=== PATIENT | female | born 1965 | race Two or more races ===

== ENCOUNTER 2020-03-12 10:10 | Emergency (ER) | payer OTHER, SELFPAY ==
[2020-03-12 10:26] VITALS: PULSE 72; RESP 16; TEMP 36.7; O2SAT 99; BMI 20.7
--- NOTE | 2020-03-12 10:26 | ED_ITS ---
HPI - URI/Sore Throat General Chief Complaint: General Medical Stated Complaint: HEADACHE Time Seen by Provider: 03/12/20 10:26 Source: patient and lang interpreter Mode of arrival: ambulatory Limitations: no limitations History of Present Illness MD elicited complaint: other (muscle aches, headache, chest tightness COVID exposure) Onset (ago): day(s) (2) Consistency: constant Severity: mild Able to tolerate fluids by mouth: Yes Exacerbating factors: nothing Relieving factors: nothing Context: sick contacts (2 nieces have COVID) Associated symptoms: chills and headache Treatments prior to arrival: none Related Data Allergies Allergy/AdvReac Type Severity Reaction Status Date / Time No Known Allergies Allergy Verified 03/12/20 10:14 Review of Systems Review of Systems: Constitutional : no Fever, positive Chills, positive fatigue, positive Malaise ENT/Mouth : positive sore throat, positive runny nose Eyes: No Discharge Cardiovascular : No Chest Pain, No SOB Respiratory : No Cough, No Sputum Gastrointestinal : No Nausea, No Vomiting, No Diarrhea Genitourinary : No Dysuria, No Urinary Frequency Musculoskeletal : positive Myalgia Skin : No rash Neuro : No Headache [facility] Past Medical History Medical History (Updated 03/12/20 @ 10:41 by Meghan Madrigal DO) Low blood pressure Social History Social History (Updated 03/12/20 @ 10:41 by Meghan Madrigal DO) Alcohol intake: never Smoking Status: Never smoker Physical Exam Vital Signs and I&O and Narrative: Vital Signs and I&O: Vital Signs Temp 98.0 F 03/12/20 10:26 Pulse 72 03/12/20 10:26 Resp 16 03/12/20 10:26 Pulse Ox 99 03/12/20 10:26 Intake & Output 03/11/20 03/12/20 03/12/20 18:59 06:59 18:59 Weight 63.503 kg Body Mass Index 20.7 Appearance: Alert. Oriented X3. No acute distress. Eyes: Pupils equal, round and reactive to light. ENT: Pharynx normal. Neck: Normal inspection. Neck supple. CVS: Normal heart rate and rhythm. Pulses normal. Respiratory: No respiratory distress. Breath sounds normal. Abdomen: Soft and nontender. Skin: Skin warm and dry. Normal skin color. Normal skin turgor. Extremities: No lower extremity edema. No lower extremity edema. Neuro: Oriented X 3. No motor deficit. No sensory deficit. MDM - URI/Sore Throat MDM Narrative Medical decision making narrative: not toxic, no hypoxia, clear lungs here for COVID test did mention chest tightness but refuses EKG and CXR doesn't want to wait, COVID test ordered at this time Discharge Plan Discharge Clinical Impression: Viral infection Patient Disposition: Home, Self-Care Instructions: COVID-19 (Coronavirus Disease 2019) (ED) Additional Instructions: we will call you with results in 2 to 4 days. wear a mask and socially distance, use tylenol for fevers Referrals: Physician,Unknown [Primary Care Provider] - 2 days (follow up with your doctor if you do not feel better in 2 days) Stand Alone Forms: Work/School Release Print Language: Maltese
== END 2020-03-12 11:05 | disposition home or self-care (01) ==
LOC: HO.ED 10:58
PROVIDERS: Emergency Provider Emergency Medicine
DX: B34.9 Viral infection, unspecified (principal); Z20.828 Contact with and (suspected) exposure to other viral communicable diseases; R51.9 Headache, unspecified
CPT/HCPCS: 87635; 99283

== ENCOUNTER → 2020-03-31 11:05 | Outpatient (REF) | payer OTHER, SELFPAY ==
--- NOTE | 2020-03-31 11:09 | CA_ITS ---
Acquisition Time: 2020-03-31 11:20:59 Total Exercise Time: 00:06:40 Test Indications: cp Medications: SEE CHART Protocol: DAVID Max HR: 160 BPM 96% of Pred: 165 BPM Max BP: 142/082 mmHG Max Work Load: 8.0 METS Exercise stress ECHO using Bruice protocol. Pt exercise on treadmill for 6 min 40 sec. METS 8, THR 96 %. Pt tolerated well, reported atypical pinching like pain in the middle of the chest at peak exercise with increased HR that completely resolves in recovery period. EKG with no arrhythmias, no ischemic changes davon on EKG tracing during exercise and in recovery. ECHO images taken at rest and immediately at peak exercise. Definity contracst IV used. Normotensive response to exercise . Test reviewed with Dr. Márquez Exercise stress echocardiogram reviewed. At rest, there is normal LVEF and wall motion. With peak exercise, there is no evidence of any exercise induced wall motion abnormality. There is normal decrease in end-systolic volumes. Overall, this is a normal study. Referred By: Yanelis Morales Overread By: ANNIE MÁRQUEZ
--- NOTE | 2020-03-31 11:10 | CA_ITS ---
Acquisition Time: 2020-03-31 11:20:59 Total Exercise Time: 00:06:40 Test Indications: cp Medications: SEE CHART Protocol: DAVID Max HR: 160 BPM 96% of Pred: 165 BPM Max BP: 142/082 mmHG Max Work Load: 8.0 METS Exercise stress ECHO using David protocol. Pt exercise on treadmill for 6 min 40 sec. METS 8, THR 96 %. Pt tolerated well, reported atypical pinching like pain in the middle of the chest at peak exercise with increased HR that completely resolves in recovery period. EKG with no arrhythmias, no ischemic changes seen on EKG tracing during exercise and in recovery. ECHO images taken at rest and immediately at peak exercise. Definity contrast IV used. Normotensive response to exercise . Test reviewed with Dr. Márquez Exercise stress echocardiogram reviewed. At rest, there is normal LVEF and wall motion. With peak exercise, there is no evidence of any exercise induced wall motion abnormality. There is normal decrease in end-systolic volumes. Overall, this is a normal study. Referred By: Yanelis Morales Overread By: ANNIE IGNACIO
== END ==
LOC: HO.CARD 11:05
PROVIDERS: Visit Provider Internal Medicine Cardiovascular Disease
DX: R07.89 Other chest pain (principal)
CPT/HCPCS: 93017; 93350; Q9957

== ENCOUNTER 2020-04-28 09:23 | Day surgery (SDC) | payer OTHER, SELFPAY ==
[2020-04-22 14:01] VITALS: BMI 17.7
--- NOTE | 2020-04-24 15:51 | HO.ANESPROP2 ---
Documented by User: Yady Rocha 04/24/20 15:53 HPI - Anesthesia Eval Consult details Narrative: 54yo F for Colonoscopy [facility] Past Medical History Medical History Arthritis Back pain Chest pain Hx of constipation Hx of iron deficiency anemia Low blood pressure Migraines Surgical History Surgical History Hx of colonoscopy Hx of tubal ligation Social History Social History Alcohol intake: never Smoking Status: Never smoker Use of substances other than those prescribed or required for medical reasons: No Advance Directives: No Advance Directives Information Provided: No Advance Directives on File: No Meds Allergies Allergy/AdvReac Type Severity Reaction Status Date / Time No Known Allergies Allergy Verified 04/28/20 09:27 Home Medications Medication Instructions Recorded Confirmed Type cholecalciferol (vitamin D3) 1 tab PO DAILY 04/28/20 04/28/20 History cyclobenzaprine 1 tab PO BEDTIME PRN 04/28/20 04/28/20 History Exam Exam Date and Time: April 24, 2020 1551 Height,Weight and Vital Signs: Height 5 ft 9 in Weight 54.431 kg Narrative Narrative: Stress ECHO report 03/2020: Exercise stress ECHO using Bruice protocol. Pt exercise on treadmill for 6 min 40 sec. METS 8, THR 96 %. Pt tolerated well, reported atypical pinching like pain in the middle of the chest at peak exercise with increased HR that completely resolves in recovery period. EKG with no arrhythmias, no ischemic changes davon on EKG tracing during exercise and in recovery. ECHO images taken at rest and immediately at peak exercise. Definity contracst IV used. Normotensive response to exercise . Assessment and Plan Assessment Anesthesia Assessment: Chart Reviewed Documented by User: Jr Trevino MD 04/28/20 09:44 [facility] Past Medical History Medical History Arthritis Back pain Chest pain Hx of constipation Hx of iron deficiency anemia Low blood pressure Migraines Surgical History Surgical History Hx of colonoscopy Hx of tubal ligation Social History Social History Alcohol intake: never Smoking Status: Never smoker Use of substances other than those prescribed or required for medical reasons: No Advance Directives: No Advance Directives Information Provided: No Advance Directives on File: No Meds Allergies Allergy/AdvReac Type Severity Reaction Status Date / Time No Known Allergies Allergy Verified 04/28/20 09:27 Home Medications Medication Instructions Recorded Confirmed Type cholecalciferol (vitamin D3) 1 tab PO DAILY 04/28/20 04/28/20 History cyclobenzaprine 1 tab PO BEDTIME PRN 04/28/20 04/28/20 History Exam Airway Mallampati Class: I TM Dist: >3cm Neck ROM: Full Loose/Missing/Broken Teeth: No Heart: rrr Lungs: nl Other: ao Assessment and Plan Assessment Anesthesia Assessment: Anesthesia Plan Discussed and Chart Reviewed Final Anesthetic Review NPO: Yes ASA Class: II Final Preanesthetic Review: No Changes in Pt Med Stat, Meds/Allgs Chart Reviewed, Consent Obtained/Reviewed and Anes Risks/Benef Reviewed Patient Risk: Low Procedure Risk: Low Anesthetic Plan Anesthetic Plan: MAC: Disposition: Standard PACU
--- NOTE | 2020-04-28 09:15 | MHC.SHP ---
Pre-Procedural Eval Section B Chief Complaint: Other Specified Health Status Details of Present Illness: colon screen, FH of CRC Relevant Family History (Specify if Yes): No Relevant Social History: None Present Medications: see Short Stay Collaborative assessment Medical History: Significant History (Arthritis, Back pain, Chest pain, Hx of constipation, Hx of iron deficiency anemia, Low blood pressure, Migraines) History of Previous Operations: Relevant previous surgery/procedure and date(s) (tubal ligation) Allergies: Allergies Allergy/AdvReac Type Severity Reaction Status Date / Time No Known Allergies Allergy Verified 03/12/20 10:14 Review of Systems Sugical H&P ROS: Negative: Constitution, Cardiovascular, Respiratory, Neurological, Psychiatric, Hem-Onc, Allergic/Immunologic, Gastrointestinal, Genitourinary, Musculoskeletal, Integumentary, Endocrine and Eyes/Ears/Nose/Throat Exam Surgical H&P Exam: Normal: HEENT, Normal: Heart, Normal: Lungs, Normal: Extremities, Normal: Abdomen, Normal: Skin and Normal: Neurological Plan Diagnosis/Plan: Unchanged Patient has been examined and remains a candidate for the planned procedure
--- NOTE | 2020-04-28 09:16 | P.OP_ITS ---
Operative Note Operative Note Date of Service: 04/28/20 Narrative: Operative Information Procedure Description: Colonoscopy COLONOSCOPY Instrument: Olympus variable stiffness pediatric scope 190L Colonoscopy Monitoring: Vital signs and clinical assessment, continuous EKG monitoring, Pulse oximetry, Carbon Dioxide monitoring and blood pressure monitoring were done throughout the procedure. Colon withdrawal time was 10 minutes. Procedure: The patient was placed in the left lateral decubitis position and pre-procedure medications were administered. After a digital rectal examination of the ano-rectum, the video colonoscope was inserted into the rectum and advanced through the colon to the cecum/TI. The colonoscope was slowly withdrawn in a retrograde panoramic fashion and the colon mucosa was carefully examined including a retroflexed view of the rectum. Findings and interventions are described below. Procedure Difficulty: easy Findings: Terminal Ileum-normal Cecum:normal Ascending Colon: normal Transverse Colon -normal Descending Colon:normal Sigmoid Colon: normal Rectum: Retroflexion with small internal hemorrhoids, grade I Anorectum - normal Colon preparation: [place] Bowel Preparation Scale Right colon; 3 Transverse colon: 3 Left colon; 3 (0 = Unprepared colon segment with mucosa not seen due to solid stool that cannot be cleared. 1 = Portion of mucosa of the colon segment seen, but other areas of the colon segment not well seen due to staining, residual stool and/or opaque liquid. 2 = Minor amount of residual staining, small fragments of stool and/or opaque liquid, but mucosa of colon segment seen well. 3 = Entire mucosa of colon segment seen well with no residual staining, small fragments of stool or opaque liquid) Impression and Post Procedure Diagnosis: internal hemorrhoids Plan: High fiber diet leaflet Avoid straining at stool, epsom salts and sitz bath prn, anusol supps or cream prn Repeat Colonoscopy in 5 years due to FH of CRC or earlier if clinically indicated Above findings were reviewed with the patient and relevant handouts were provided if indicated.
--- NOTE | 2020-04-28 09:16 | PM.OP ---
Brief Operative Note Date of Service: 04/28/20 Pre-op diagnosis: colon screen Post-op diagnosis: same Procedure: see op note Surgeon: Aime Gallagher MD Anesthesia: MAC Estimated blood loss (mL): 0 Condition: stable Disposition: PACU
[2020-04-28 09:32] VITALS: BP 129/77; PULSE 97; RESP 16; TEMP 36.6; O2SAT 100
[2020-04-28] MEDS: Lactated Ringers 1,000 ML 100 ML IVCONT (09:39)
[2020-04-28 10:19] VITALS: BP 96/41; PULSE 80; RESP 20; TEMP 36.2; O2SAT 99
[2020-04-28 10:24] VITALS: BP 86/46
[2020-04-28 10:29] VITALS: BP 91/52; PULSE 75; RESP 16; O2SAT 100
[2020-04-28 10:35] VITALS: BP 91/55; PULSE 75; RESP 16; TEMP 36.2; O2SAT 100
== END 2020-04-28 11:25 | disposition home or self-care (01) ==
PROVIDERS: Visit Provider Internal Medicine Gastroenterology
PROC: 0DJD8ZZ Inspection of Lower Intestinal Tract, Via Natural or Artificial Opening Endoscopic (ICD-10-PCS; CPT 45378; principal; 2020-04-28 09:30)
DX: Z12.11 Encounter for screening for malignant neoplasm of colon (principal); K64.0 First degree hemorrhoids; D50.9 Iron deficiency anemia, unspecified; Z79.899 Other long term (current) drug therapy; Z80.0 Family history of malignant neoplasm of digestive organs
CPT/HCPCS: 45378

== ENCOUNTER → 2020-05-12 08:29 | Outpatient (BNVA) | payer OTHER, SELFPAY | PROVIDERS: Visit Provider Physician Assistant | DX: Z76.89 Persons encountering health services in other specified circumstances (principal) ==

== ENCOUNTER 2020-05-13 16:16 | Outpatient (REF) | payer OTHER, SELFPAY | END 2020-05-13 16:17 | disposition home or self-care (01) | LOC: HO.LAB 16:16 | PROVIDERS: Visit Provider Internal Medicine | DX: Z20.828 Contact with and (suspected) exposure to other viral communicable diseases (principal) | CPT/HCPCS: C9803; U0003 ==

== ENCOUNTER 2020-06-22 16:42 | Emergency (ER) | payer OTHER, SELFPAY ==
[2020-06-22 19:46] VITALS: BP 111/54; PULSE 67; RESP 16; TEMP 36.8; O2SAT 98
== END 2020-06-22 22:57 | disposition left against medical advice (07) ==
PROVIDERS: Emergency Provider Emergency Medicine
DX: R10.9 Unspecified abdominal pain (principal)

== ENCOUNTER 2020-06-24 10:27 | Emergency (ER) | payer OTHER, SELFPAY ==
[2020-06-24 10:59] VITALS: BP 112/53; PULSE 68; RESP 18; TEMP 36.9; O2SAT 99; BMI 17.1
--- NOTE | 2020-06-24 11:02 | ED.GENADULT ---
HPI - General Adult General Chief complaint: Abdominal Pain <Charmaine Carmona NP - Last Filed: 06/24/20 11:04> Stated complaint: abd pain <Charmaine Carmona NP - Last Filed: 06/24/20 11:04> Time Seen by Provider: 06/24/20 11:02 <Charmaine Carmona NP - Last Filed: 06/24/20 11:04> Source: patient <LLUVIA Aleman - Last Filed: 06/24/20 16:32> Mode of arrival: ambulatory <LLUVIA Aleman - Last Filed: 06/24/20 16:32> History of Present Illness HPI narrative: 54-year-old female with a past medical history of arthritis, constipation, anemia, migraines, tubal ligation, colonic polyps, presenting to the ED complaining of right-sided abdominal pain radiating to right flank x1 week. States pain is constant associated nausea. Denies having similar symptoms in the past. Denies vomiting, fever, diarrhea/constipation, dysuria/hematuria, vaginal bleeding or discharge <LLUVIA Aleman - Last Filed: 06/24/20 16:32> Onset (ago): day(s) <LLUVIA Aleman - Last Filed: 06/24/20 16:32> Related Data Home medications: Home Medications Medication Instructions Recorded Confirmed cholecalciferol (vitamin D3) 1 tab PO DAILY 04/28/20 04/28/20 cyclobenzaprine 1 tab PO BEDTIME PRN 04/28/20 04/28/20 Previous Rx's Medication Instructions Recorded mineral oil [Fleet Mineral Oil] 118 ml [place] DAILY PRN #135 ml 06/24/20 polyethylene glycol 3350 [Miralax] 17 g PO DAILY PRN #30 ea 06/24/20 <Charmaine Carmona NP - Last Filed: 06/24/20 11:04> Allergies/adverse reactions: Allergies Allergy/AdvReac Type Severity Reaction Status Date / Time No Known Allergies Allergy Verified 04/28/20 09:27 <Charmaine Carmona NP - Last Filed: 06/24/20 11:04> Review of Systems Review of Systems: Constitutional: No Weight loss, No Fever Cardiovascular: No Chest Pain, No SOB, No Dyspnea on Exertion Respiratory: No Cough, No Sputum, No Dyspnea Gastrointestinal: + Nausea, No Vomiting, No Diarrhea, No Constipation, + Abdominal pain Genitourinary: No irregular bleeding, No Dysuria, No Urinary Frequency, No Hematuria, +Flank Pain, No Urinary Flow Changes, No Hesitancy Musculoskeletal: No joint pain, No Myalgias, No Joint Swelling Skin: No Skin Lesions, No rash <LLUVIA Aleman - Last Filed: 06/24/20 16:32> Yes all other systems are reviewed and are negative <LLUVIA Aleman - Last Filed: 06/24/20 16:32> [facility] Past Medical History Attestation statement: The following information was validated with the patient. <LLUVIA Aleman - Last Filed: 06/24/20 16:32> Medical History: Medical History (Updated 06/24/20 @ 16:29 by LLUVIA Aleman) Arthritis Back pain Chest pain Family history of colon cancer Family history of colonic polyps Hx of constipation Hx of iron deficiency anemia Low blood pressure Migraines <Charmaine Carmona NP - Last Filed: 06/24/20 11:04> Surgical History: Surgical History Hx of colonoscopy Hx of tubal ligation <Charmaine Carmona NP - Last Filed: 06/24/20 11:04> Family History Family History: Family History (Updated 05/12/20 @ 11:41 by Kathleen Nolasco PA-C) Brother Colon cancer Sister Colon polyps Breast cancer Sister Breast cancer <Charmaine Carmona NP - Last Filed: 06/24/20 11:04> Social History Social History: Social History Alcohol intake: never Smoking Status: Never smoker Smoked in Last 30 Days: No Use of substances other than those prescribed or required for medical reasons: No Advance Directives: No Advance Directives Information Provided: No <Charmaine Carmona NP - Last Filed: 06/24/20 11:04> Physical Exam Vital Signs: Vital Signs: Last Vital Signs Temp 97.8 F 06/24/20 16:00 Pulse 66 06/24/20 16:00 Resp 18 06/24/20 16:00 BP 113/48 L 06/24/20 16:00 Pulse Ox 96 06/24/20 16:00 Body Mass Index 17.1 <Charmaine Carmona NP - Last Filed: 06/24/20 11:04> Vital Signs: Last Vital Signs Temp 97.8 F 06/24/20 16:00 Pulse 66 06/24/20 16:00 Resp 18 06/24/20 16:00 BP 113/48 L 06/24/20 16:00 Pulse Ox 96 06/24/20 16:00 Body Mass Index 17.1 <LLUVIA Aleman - Last Filed: 06/24/20 16:32> Const: General: cooperative and healthy appearing <LLUVIA Aleman - Last Filed: 06/24/20 16:32> Orientation/consciousness: patient oriented x3 <LLUVIA Aleman - Last Filed: 06/24/20 16:32> Limitations: no limitations <LLUVIA Aleman - Last Filed: 06/24/20 16:32> HENMT: Head: Yes normal to inspection <LLUVIA Aleman - Last Filed: 06/24/20 16:32> Ears: hearing grossly normal bilaterally <LLUVIA Aleman - Last Filed: 06/24/20 16:32> General nose exam: Normal external nose present <LLUVIA Aleman - Last Filed: 06/24/20 16:32> Face and sinus: Yes normal facial exam <LLUVIA Aleman - Last Filed: 06/24/20 16:32> Eyes: General: appearance normal, both eyes and all related structures <LLUVIA Aleman - Last Filed: 06/24/20 16:32> EOM: EOMs intact bilaterally <LLUVIA Aleman - Last Filed: 06/24/20 16:32> Neck: Neck: Yes normal visual inspection and Yes no meningeal signs <LLUVIA Aleman - Last Filed: 06/24/20 16:32> Resp: Effort & Inspection: normal respiratory effort <LLUVIA Aleman - Last Filed: 06/24/20 16:32> Cardio: Rate: regular rate <LLUVIA Aleman - Last Filed: 06/24/20 16:32> GI: Inspection: Yes normal to inspection <LLUVIA Aleman - Last Filed: 06/24/20 16:32> Palpation (GI): Soft to palpation, Tenderness to palpation present (GI) in the epigastrum, in the RLQ and in the RUQ, no guarding and not rigid <LLUVIA Aleman - Last Filed: 06/24/20 16:32> : General: Yes CVA tenderness on the right <Eugenie Manzano PA - Last Filed: 06/24/20 16:32> Skin: Rashes: no rashes <Eugenie Manzano PA - Last Filed: 06/24/20 16:32> Wounds: no wounds <Eugenie Manzano PA - Last Filed: 06/24/20 16:32> Neuro: General: patient oriented x3 and no meningeal signs <LLUVIA Aleman - Last Filed: 06/24/20 16:32> Gait exam (Neuro): Normal gait present <LLUVIA Aleman - Last Filed: 06/24/20 16:32> Extrem: General: Yes normal to inspection <LLUVIA Aleman - Last Filed: 06/24/20 16:32> Course Course Course Narrative: 1100-This is rapid medical exam. 54 yo female with h/o hyst, anemia here with right upper quadrant pain with radiation to the right flank x 1 week. +nausea. No vomiting/diarrhea/urinary symptoms. Will need labs, UA, abdominal US. Deferred additional HPI, ROS, PE to primary provider. <Charmaine Carmona NP - Last Filed: 06/24/20 11:04> - 1626-- CT abdomen pelvis w con IMPRESSION: Moderate to significant constipation without any evidence of obstruction. Suspect pelvic congestion. Unremarkable anteverted uterus. No acute process seen in the right upper quadrant. 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 Fleet enema and MiraLax sent to pharmacy. Patient is to follow-up with GI <LLUVIA Aleman - Last Filed: 06/24/20 16:32> Medical Decision Making [facility] Narrative Medical decision making narrative: 54-year-old female with a past medical history of arthritis, constipation, anemia, migraines, tubal ligation, colonic polyps, presenting to the ED complaining of right-sided abdominal pain radiating to right flank x1 week. On exam VSS, NAD/nontoxic appearing. Physical exam as above. Labs/ultrasound resulted via RME and unremarkable. Will obtain CT to rule out appendicitis or other abnormality. Low concern for ovarian pathology Plan: Labs, UA, ultrasound completed, CT AP, re-evaluate <LLUVIA Aleman - Last Filed: 06/24/20 16:32> Lab Data Result diagrams: : 06/24/20 11:23 06/24/20 11:23 <Charmaine Carmona NP - Last Filed: 06/24/20 11:04> Labs: Lab Results 06/24/20 06/24/20 06/24/20 Range/Units 11:23 11:23 11:23 WBC 4.5 L (4.8-10.8) X10*3/uL RBC 4.52 (4.20-5.50) X10*6/uL Hgb 11.9 L (12.0-16.0) g/dl Hct 37.9 (37-47) % MCV 83.8 (80-98) fL MCH 26.3 L (27.0-33.0) pg MCHC 31.4 (31.0-35.0) g/dl RDW 12.2 (11.0-16.0) % Plt Count 202 (160-400) X10*3/uL MPV 9.5 (9.4-12.3) fL Immature Gran % (Auto) 0.2 (0.0-0.4) % Neut % (Auto) 60.1 (45-73) % Lymph % (Auto) 24.3 (20-40) % Coffee % (Auto) 5.6 (2-11) % Eos % (Auto) 9.1 H (0-4) % Baso % (Auto) 0.7 (0-2) % Lymph # (Auto) 1.1 L (1.2-4.9) X10*3/uL Coffee # (Auto) 0.3 (0.1-1.2) X10*3/uL Eos # (Auto) 0.4 (0.0-0.4) X10*3/uL Baso # (Auto) 0.0 (0.0-0.2) X10*3/uL Abs Immat Gran (auto) 0.01 (0.00-0.03) X10*3/uL Absolute Neuts (auto) 2.7 (2.0-8.3) X10*3/uL Absolute Nucleated RBC 0.000 (0.0-0.012) X10*3/uL Nucleated RBC % (auto) 0.0 (0.0-0.2) /100WBC Hold Blue Top SEE NOTE Sodium 140 (135-145) mmol/L Potassium 4.1 (3.3-5.1) mmol/l Chloride 104 (96-108) mmol/L Carbon Dioxide 29 (22-29) mmol/L Anion Gap 11 L (12-20) BUN 10 (9-16) mg/dL Creatinine 0.82 (0.5-1.4) mg/dL Estim Creat Clear Calc 64.3 Estimated GFR > 60 Random Glucose 99 (60-115) mg/dL Calcium 9.5 (8.4-10.2) mg/dL Total Bilirubin 0.3 (0.0-1.0) mg/dL Direct Bilirubin < 0.2 (0.0-0.5) mg/dL AST 21 (5-31) U/L ALT 21 (0-31) U/L Alkaline Phosphatase 77 (39-117) U/L Total Protein 7.5 (6.5-8.0) g/dL Albumin 4.6 (3.5-5.0) g/dL Lipase 40 (8-78) U/L Urine Color Urine Appearance Urine pH (5.0-8.0) Ur Specific [place] (1.005-1.025) Urine Protein (NEG-TRACE) MG/DL Urine Glucose (UA) (NEG) MG/DL Urine Ketones (NEG) MG/DL Urine Blood (NEG) Urine Nitrite (NEG) Ur Leukocyte Esterase (NEG) 06/24/20 Range/Units 11:23 WBC (4.8-10.8) X10*3/uL RBC (4.20-5.50) X10*6/uL Hgb (12.0-16.0) g/dl Hct (37-47) % MCV (80-98) fL MCH (27.0-33.0) pg MCHC (31.0-35.0) g/dl RDW (11.0-16.0) % Plt Count (160-400) X10*3/uL MPV (9.4-12.3) fL Immature Gran % (Auto) (0.0-0.4) % Neut % (Auto) (45-73) % Lymph % (Auto) (20-40) % Coffee % (Auto) (2-11) % Eos % (Auto) (0-4) % Baso % (Auto) (0-2) % Lymph # (Auto) (1.2-4.9) X10*3/uL Coffee # (Auto) (0.1-1.2) X10*3/uL Eos # (Auto) (0.0-0.4) X10*3/uL Baso # (Auto) (0.0-0.2) X10*3/uL Abs Immat Gran (auto) (0.00-0.03) X10*3/uL Absolute Neuts (auto) (2.0-8.3) X10*3/uL Absolute Nucleated RBC (0.0-0.012) X10*3/uL Nucleated RBC % (auto) (0.0-0.2) /100WBC Hold Blue Top Sodium (135-145) mmol/L Potassium (3.3-5.1) mmol/l Chloride (96-108) mmol/L Carbon Dioxide (22-29) mmol/L Anion Gap (12-20) BUN (9-16) mg/dL Creatinine (0.5-1.4) mg/dL Estim Creat Clear Calc Estimated GFR Random Glucose (60-115) mg/dL Calcium (8.4-10.2) mg/dL Total Bilirubin (0.0-1.0) mg/dL Direct Bilirubin (0.0-0.5) mg/dL AST (5-31) U/L ALT (0-31) U/L Alkaline Phosphatase (39-117) U/L Total Protein (6.5-8.0) g/dL Albumin (3.5-5.0) g/dL Lipase (8-78) U/L Urine Color YELLOW Urine Appearance HAZY Urine pH 5.5 (5.0-8.0) Ur Specific [place] >= 1.030 H (1.005-1.025) Urine Protein NEG (NEG-TRACE) MG/DL Urine Glucose (UA) NEG (NEG) MG/DL Urine Ketones NEG (NEG) MG/DL Urine Blood NEG (NEG) Urine Nitrite NEG (NEG) Ur Leukocyte Esterase NEG (NEG) <Charmaine Carmona, [employer]FFEE ROASTER - Last Filed: 06/24/20 11:04> Lab Results 06/24/20 06/24/20 06/24/20 Range/Units 11:23 11:23 11:23 WBC 4.5 L (4.8-10.8) X10*3/uL RBC 4.52 (4.20-5.50) X10*6/uL Hgb 11.9 L (12.0-16.0) g/dl Hct 37.9 (37-47) % MCV 83.8 (80-98) fL MCH 26.3 L (27.0-33.0) pg MCHC 31.4 (31.0-35.0) g/dl RDW 12.2 (11.0-16.0) % Plt Count 202 (160-400) X10*3/uL MPV 9.5 (9.4-12.3) fL Immature Gran % (Auto) 0.2 (0.0-0.4) % Neut % (Auto) 60.1 (45-73) % Lymph % (Auto) 24.3 (20-40) % Coffee % (Auto) 5.6 (2-11) % Eos % (Auto) 9.1 H (0-4) % Baso % (Auto) 0.7 (0-2) % Lymph # (Auto) 1.1 L (1.2-4.9) X10*3/uL Coffee # (Auto) 0.3 (0.1-1.2) X10*3/uL Eos # (Auto) 0.4 (0.0-0.4) X10*3/uL Baso # (Auto) 0.0 (0.0-0.2) X10*3/uL Abs Immat Gran (auto) 0.01 (0.00-0.03) X10*3/uL Absolute Neuts (auto) 2.7 (2.0-8.3) X10*3/uL Absolute Nucleated RBC 0.000 (0.0-0.012) X10*3/uL Nucleated RBC % (auto) 0.0 (0.0-0.2) /100WBC Hold Blue Top SEE NOTE Sodium 140 (135-145) mmol/L Potassium 4.1 (3.3-5.1) mmol/l Chloride 104 (96-108) mmol/L Carbon Dioxide 29 (22-29) mmol/L Anion Gap 11 L (12-20) BUN 10 (9-16) mg/dL Creatinine 0.82 (0.5-1.4) mg/dL Estim Creat Clear Calc 64.3 Estimated GFR > 60 Random Glucose 99 (60-115) mg/dL Calcium 9.5 (8.4-10.2) mg/dL Total Bilirubin 0.3 (0.0-1.0) mg/dL Direct Bilirubin < 0.2 (0.0-0.5) mg/dL AST 21 (5-31) U/L ALT 21 (0-31) U/L Alkaline Phosphatase 77 (39-117) U/L Total Protein 7.5 (6.5-8.0) g/dL Albumin 4.6 (3.5-5.0) g/dL Lipase 40 (8-78) U/L Urine Color Urine Appearance Urine pH (5.0-8.0) Ur Specific [place] (1.005-1.025) Urine Protein (NEG-TRACE) MG/DL Urine Glucose (UA) (NEG) MG/DL Urine Ketones (NEG) MG/DL Urine Blood (NEG) Urine Nitrite (NEG) Ur Leukocyte Esterase (NEG) 06/24/20 Range/Units 11:23 WBC (4.8-10.8) X10*3/uL RBC (4.20-5.50) X10*6/uL Hgb (12.0-16.0) g/dl Hct (37-47) % MCV (80-98) fL MCH (27.0-33.0) pg MCHC (31.0-35.0) g/dl RDW (11.0-16.0) % Plt Count (160-400) X10*3/uL MPV (9.4-12.3) fL Immature Gran % (Auto) (0.0-0.4) % Neut % (Auto) (45-73) % Lymph % (Auto) (20-40) % Coffee % (Auto) (2-11) % Eos % (Auto) (0-4) % Baso % (Auto) (0-2) % Lymph # (Auto) (1.2-4.9) X10*3/uL Coffee # (Auto) (0.1-1.2) X10*3/uL Eos # (Auto) (0.0-0.4) X10*3/uL Baso # (Auto) (0.0-0.2) X10*3/uL Abs Immat Gran (auto) (0.00-0.03) X10*3/uL Absolute Neuts (auto) (2.0-8.3) X10*3/uL Absolute Nucleated RBC (0.0-0.012) X10*3/uL Nucleated RBC % (auto) (0.0-0.2) /100WBC Hold Blue Top Sodium (135-145) mmol/L Potassium (3.3-5.1) mmol/l Chloride (96-108) mmol/L Carbon Dioxide (22-29) mmol/L Anion Gap (12-20) BUN (9-16) mg/dL Creatinine (0.5-1.4) mg/dL Estim Creat Clear Calc Estimated GFR Random Glucose (60-115) mg/dL Calcium (8.4-10.2) mg/dL Total Bilirubin (0.0-1.0) mg/dL Direct Bilirubin (0.0-0.5) mg/dL AST (5-31) U/L ALT (0-31) U/L Alkaline Phosphatase (39-117) U/L Total Protein (6.5-8.0) g/dL Albumin (3.5-5.0) g/dL Lipase (8-78) U/L Urine Color YELLOW Urine Appearance HAZY Urine pH 5.5 (5.0-8.0) Ur Specific [place] >= 1.030 H (1.005-1.025) Urine Protein NEG (NEG-TRACE) MG/DL Urine Glucose (UA) NEG (NEG) MG/DL Urine Ketones NEG (NEG) MG/DL Urine Blood NEG (NEG) Urine Nitrite NEG (NEG) Ur Leukocyte Esterase NEG (NEG) <LLUVIA Aleman - Last Filed: 06/24/20 16:32> Discharge Plan Discharge Clinical Impression: Pelvic congestion syndrome Constipation Qualifiers: Constipation type: unspecified constipation type Qualified Code(s): K59.00 - Constipation, unspecified <Charmaine Carmona NP - Last Filed: 06/24/20 11:04> Patient Disposition: Home, Self-Care <Charmaine Carmona NP - Last Filed: 06/24/20 11:04> Instructions: Constipation (ED) <Charmaine Carmona NP - Last Filed: 06/24/20 11:04> Additional Instructions: Your blood work was reassuring. Her urine was negative. Her CT scan showed significant constipation, start taking MiraLax which is a laxative. Use enema at home as needed. If you do not have a bowel movement 48 hours return to the ED immediately. CT scan also showed some pelvic congestion, follow-up with her OBGYN. If her symptoms persist or worsen, pain becomes unbearable, you are unable to eat or drink, or you have fever return to the ED Chandler an?lisis de padmaja fue reconfortante. Chandler orina fue negativa. Chandler tomograf?a computarizada mostr? estre?imiento significativo, comience a harvey MiraLax, que es un laxante. Use enema en casa seg?n sea necesario. Si no tiene moises evacuaci?n intestinal 48 horas, regrese al servicio de urgencias de inmediato. La tomograf?a computarizada tambi?n mostr? cierta congesti?n p?lvica, seguimiento con chandler obstetra. Si christopher s?ntomas persisten o empeoran, el dolor se vuelve insoportable, no puede comer ni beber, o tiene fiebre, vuelva al servicio de urgencias. <Charmaine Carmona NP - Last Filed: 06/24/20 11:04> Prescriptions: New polyethylene glycol 3350 [Miralax] 17 gram powder in packet 17 g PO DAILY PRN (Reason: constipation) Qty: 30 RF: 0 mineral oil [Fleet Mineral Oil] Enema 118 ml W[place] DAILY PRN (Reason: constipation) Qty: 135 RF: 0 No Action cyclobenzaprine 10 mg tablet 1 tab PO BEDTIME PRN (Reason: Back Pain) RF: 0 cholecalciferol (vitamin D3) 25 mcg (1,000 unit) tablet 1 tab PO DAILY RF: 0 <Charmaine Carmona NP - Last Filed: 06/24/20 11:04> Referrals: Aime Gallagher MD [Physician] - 1 week Ching Holliday MD [Physician] - 1 week <Charmaine Carmona NP - Last Filed: 06/24/20 11:04> Print Language: Sammarinese <Charmaine Carmona NP - Last Filed: 06/24/20 11:04>
--- NOTE | 2020-06-24 11:05 | US_ITS ---
EXAMINATION: US ABDOMEN LIMITED CLINICAL INFORMATION: Right upper quadrant pain, rule out acute cholecystitis. COMPARISON: None TECHNIQUE: Real-time imaging of the right upper quadrant abdominal viscera. FINDINGS: PANCREAS: Unremarkable. LIVER: Unremarkable. GALLBLADDER: Incompletely distended without significant abnormality. COMMON BILE DUCT: Normal in caliber measuring 0.5 cm in diameter. RIGHT KIDNEY: 10.0 cm. Unremarkable. FREE FLUID: None. US/US abdomen limited IMPRESSION: Unremarkable right upper quadrant ultrasound. No significant gallbladder abnormality.
[2020-06-24 11:30] LABS: MANUAL DIFF FLAG NO
[2020-06-24 11:33] LABS: Basophils Percent Auto 0.7 % (0-2); Eosinophils Absolute Auto 0.4 X10*3/uL (0.0-0.4); Eosinophils Percent Auto 9.1 % (0-4); Hematocrit 37.9 % (37-47); Hemoglobin 11.9 g/dl (12.0-16.0); Imm Gran Abs Auto 0.01 X10*3/uL (0.00-0.03); Imm Gran Pct Auto 0.2 % (0.0-0.4); Lymphocytes Absolute Auto 1.1 X10*3/uL (1.2-4.9); Lymphocytes Percent Auto 24.3 % (20-40); Mean Corpuscular HGB Conc 31.4 g/dl (31.0-35.0); Mean Corpuscular Hemoglobin 26.3 pg (27.0-33.0); Mean Corpuscular Volume 83.8 fL (80-98); Mean Platelet Volume 9.5 fL (9.4-12.3); Monocytes Absolute Auto 0.3 X10*3/uL (0.1-1.2); Monocytes Percent Auto 5.6 % (2-11); Neutrophils Absolute Auto 2.7 X10*3/uL (2.0-8.3); Neutrophils Percent Auto 60.1 % (45-73); Platelet Count 202 X10*3/uL (160-400); Red Blood Count 4.52 X10*6/uL (4.20-5.50); Red Cell Distribution Width 12.2 % (11.0-16.0); White Blood Count 4.5 X10*3/uL (4.8-10.8)
[2020-06-24 11:35] LABS: Glucose Urine UA NEG (NEG); Leukocyte Esterase Urine NEG (NEG); Nitrite Urine NEG (NEG); PH 5.5 (5.0-8.0); Specific Gravity - Urine >= 1.030 (1.005-1.025); Urine Blood NEG (NEG); Urine Ketones NEG (NEG); Urine Protein NEG (NEG-TRACE)
[2020-06-24 11:36] LABS: Appearance Urine HAZY; Color Urine YELLOW
[2020-06-24 11:55] LABS: Alanine Aminotransferase 21 U/L (0-31); Albumin Level 4.6 g/dL (3.5-5.0); Alkaline Phosphatase 77 U/L (39-117); Anion Gap 11 (12-20); Aspartate Amino Transferase 21 U/L (5-31); Bilirubin Direct < 0.2 mg/dL (0.0-0.5); Bilirubin Total 0.3 mg/dL (0.0-1.0); Blood Urea Nitrogen 10 mg/dL (9-16); Calcium 9.5 mg/dL (8.4-10.2); Carbon Dioxide 29 mmol/L (22-29); Chloride 104 mmol/L (96-108); Creatinine Clr Calc Pharmacy 64.3; Estimated Glomerular Filt Rate > 60; Glucose Random 99 mg/dL (60-115); Potassium 4.1 mmol/l (3.3-5.1); Sodium 140 mmol/L (135-145); Total Protein 7.5 g/dL (6.5-8.0)
--- NOTE | 2020-06-24 15:00 | CT_ITS ---
EXAMINATION: CT ABDOMEN AND PELVIS WITH CONTRAST CLINICAL INFORMATION: Right upper quadrant and right lower quadrant pain COMPARISON: None TECHNIQUE: Multidetector volumetric images were obtained from the superior aspect of the liver through the pubic symphysis following administration 85 mL of Omnipaque 350 intravenous contrast. Sagittal and coronal reformatted images were obtained on the technologist's workstation. Oral contrast: No This CT examination was performed using dose optimization techniques as appropriate, variously including the following: *Automated exposure control *Adjustment of mA and/or kV according to patient size (this includes techniques or standardized protocols for targeted exams where dose is matched to indication/reason for exam; i.e. extremities or head) *Use of iterative reconstruction technique DLP: 334 mGy-cm FINDINGS: LUNG BASES: The visualized lung bases are unremarkable. LIVER, GALLBLADDER, AND BILIARY TREE: The liver is normal in enlarged in size, normal shape, and attenuation. No focal hepatic lesion or biliary ductal dilatation is present. No radiopaque gallstones or wall thickening seen. There is mild septations in the gallbladder.. PANCREAS: Unremarkable. SPLEEN: Unremarkable. ADRENAL GLANDS: Unremarkable. KIDNEYS AND URETERS: The kidneys are normal in size, shape, and attenuation. No hydronephrosis, hydroureter, or calculi seen. No perinephric stranding. BLADDER: Unremarkable. GASTROINTESTINAL TRACT: There is a large amount of stool and gas seen throughout the colon without distention. The small bowel loops are normal caliber. Appendix is not seen well. No free air or inflammatory process seen. ABDOMINAL WALL: No significant hernia is appreciated. LYMPH NODES: Normal. VASCULAR: Unremarkable. PELVIC VISCERA: The prominent vessels seen within the pelvis likely pelvis congestion. The uterus is anteverted and appears unremarkable. There is minimal free fluid in the pelvis. OSSEOUS STRUCTURES: Unremarkable. CT/CT abdomen pelvis w con IMPRESSION: Moderate to significant constipation without any evidence of obstruction. Suspect pelvic congestion. Unremarkable anteverted uterus. No acute process seen in the right upper quadrant. Mild hepatomegaly with no focal liver lesions seen.
[2020-06-24] MEDS: 0.9 % Sodium Chloride 1,000 ML 999 ML IVCONT (15:31)
[2020-06-24] MEDS: Ketorolac Tromethamine 15 MG/ML VIAL IVPUSH (15:31)
[2020-06-24 15:33] VITALS: BP 116/54; PULSE 54; RESP 18; TEMP 36.4; O2SAT 100
[2020-06-24 15:40] LABS: Lipase 40 U/L (8-78)
[2020-06-24] MEDS: iohexoL 350 MG/ML 100 ML INFUS..BTL IV (15:55)
[2020-06-24 16:00] VITALS: BP 113/48; PULSE 66; RESP 18; TEMP 36.6; O2SAT 96
--- NOTE | 2020-06-24 16:12 | PC.NURSE ---
pt resting comfortably. skin pwd. denies pain. no vomiting. awaits ct results.
== END 2020-06-24 17:48 | disposition home or self-care (01) ==
PROVIDERS: Nurse Practitioner Family; Physician Assistant; Emergency Provider Emergency Medicine
DX: N94.89 Other specified conditions associated with female genital organs and menstrual cycle (principal); K59.00 Constipation, unspecified
CPT/HCPCS: 36415; 74177; 76705; 80048; 80076; 81003; 83690; 85025; 96361; 96374; 99284; J1885; Q9967

== ENCOUNTER 2020-07-21 08:17 | Outpatient (REF) | payer OTHER, SELFPAY | END 2020-07-21 08:18 | disposition home or self-care (01) | LOC: HO.LAB 08:17 | PROVIDERS: Visit Provider Internal Medicine | DX: Z20.822 Contact with and (suspected) exposure to COVID-19 (principal) | CPT/HCPCS: 36415; C9803; U0003; U0005 ==

== ENCOUNTER 2020-07-29 14:56 | Outpatient (REF) | payer OTHER, SELFPAY ==
[2020-07-30 09:21] LABS: BV Int Neg Control Negative (Negative); BV Int Pos Control Positive (Positive)
[2020-07-30 14:52] LABS: C. trachomatis RNA TMA NOT DETECTED (NOT DETECTED); N. gonorrhoeae RNA TMA NOT DETECTED (NOT DETECTED)
== END 2020-07-29 14:57 | disposition home or self-care (01) ==
LOC: HO.LAB 14:56
PROVIDERS: Visit Provider Obstetrics & Gynecology
DX: Z20.2 Contact with and (suspected) exposure to infections with a predominantly sexual mode of transmission (principal); N76.0 Acute vaginitis; B96.89 Other specified bacterial agents as the cause of diseases classified elsewhere; R10.2 Pelvic and perineal pain
CPT/HCPCS: 36415; 81003; 87480; 87491; 87510; 87591; 87660; 99212

== ENCOUNTER 2020-10-01 14:59 | Outpatient (REF) | payer OTHER, SELFPAY ==
[2020-10-01 15:45] LABS: COVID-19 Test Negative (Negative); IDNOW Serial# 55D5AD1C
== END 2020-10-01 15:00 | disposition home or self-care (01) ==
LOC: HO.LAB 14:59
PROVIDERS: Visit Provider Internal Medicine
DX: Z20.822 Contact with and (suspected) exposure to COVID-19 (principal)
CPT/HCPCS: 36415; 87635; C9803

== ENCOUNTER 2020-10-13 13:40 | Outpatient (REF) | payer OTHER, SELFPAY ==
--- NOTE | ~2020-10-13 | MM_ITS ---
EXAMINATION: MM DIAGNOSTIC DIGITAL BREAST TOMOSYNTHESIS, BILATERAL CLINICAL INFORMATION: Due for yearly. Also short interval six-month follow-up calcifications posterior upper outer right breast. The lifetime risk of breast cancer based on the Tyrer-Cuzick Model is 11%. COMPARISON: Mammography: 01/17/2020, 06/08/2019, 05/05/2018, 08/17/2017 TECHNIQUE: Digital breast tomosynthesis is performed in both the craniocaudal and mediolateral oblique views along with computer-aided detection (CAD). Synthesized 2D images are generated from the tomosynthesis. Additional magnification views right breast are obtained in the CC, ML, and MLO views. FINDINGS: The breasts are heterogeneously dense, which may obscure small masses (ACR BI-RADS breast composition Category c). There is fine fibronodular parenchymal pattern similar to prior studies. There is no significant mass or developing density or architectural abnormality. No abnormal calcifications on the left. Calcifications for follow-up upper outer right breast appear likely vascular. They will be reassessed again at time of annual bilateral mammography in one year. Preliminary results are provided to the patient at time of visit by the technologist. MM/MM tomosynthesis diagnostic RT IMPRESSION: 1. No mammographic evidence of malignancy. 2. Probable vascular calcifications upper outer right breast without significant change. ASSESSMENT: BI-RADS 3: Probably Benign RECOMMENDATION: Diagnostic mammography at time of next annual exam, due in 12 months. This patient's information was entered into a reminder system with a target due date for their next mammogram.
== END 2020-10-13 13:41 | disposition home or self-care (01) ==
LOC: HO.MAMMO 13:40
PROVIDERS: Visit Provider Nurse Practitioner Primary Care
DX: R92.1 Mammographic calcification found on diagnostic imaging of breast (principal)
CPT/HCPCS: 77061; 77065

== ENCOUNTER 2020-10-27 12:42 | Outpatient (REF) | payer OTHER, SELFPAY ==
--- NOTE | ~2020-10-27 | XR_ITS ---
EXAMINATION: XR THORACIC SPINE XR LUMBAR SPINE CLINICAL INFORMATION: Disc degeneration. Left-sided sciatica. COMPARISON: Thoracic spine radiographs dated 12/05/2019. CT abdomen/pelvis dated 06/24/2020. TECHNIQUE: AP and lateral views of the thoracic spine. AP, lateral, and coned-down views of the lumbar spine. FINDINGS: Thoracic spine: Normal vertebral body alignment. The thoracic kyphosis is maintained. No acute fracture or subluxation. No loss of vertebral body height. Mild multilevel loss of intervertebral disc height with small anterior endplate osteophytes, similar when compared to the prior examination. No lytic or blastic osseous lesion. The visualized lungs are clear. Lumbar spine: Normal vertebral body alignment. The lumbar lordosis is maintained. No acute fracture or subluxation. No loss of vertebral body height. Mild loss of intervertebral disc height with small endplate osteophytes redemonstrated at L4-L5. No new lytic or blastic osseous lesion. No abnormal soft tissue calcification. XR/XR thoracic spine 2V IMPRESSION: Thoracic spine: Mild multilevel degenerative disc disease, unchanged. Lumbar spine: Mild degenerative disc disease at L4-L5, unchanged.
--- NOTE | ~2020-10-27 | XR_ITS ---
EXAMINATION: XR THORACIC SPINE XR LUMBAR SPINE CLINICAL INFORMATION: Disc degeneration. Left-sided sciatica. COMPARISON: Thoracic spine radiographs dated 12/05/2019. CT abdomen/pelvis dated 06/24/2020. TECHNIQUE: AP and lateral views of the thoracic spine. AP, lateral, and coned-down views of the lumbar spine. FINDINGS: Thoracic spine: Normal vertebral body alignment. The thoracic kyphosis is maintained. No acute fracture or subluxation. No loss of vertebral body height. Mild multilevel loss of intervertebral disc height with small anterior endplate osteophytes, similar when compared to the prior examination. No lytic or blastic osseous lesion. The visualized lungs are clear. Lumbar spine: Normal vertebral body alignment. The lumbar lordosis is maintained. No acute fracture or subluxation. No loss of vertebral body height. Mild loss of intervertebral disc height with small endplate osteophytes redemonstrated at L4-L5. No new lytic or blastic osseous lesion. No abnormal soft tissue calcification. XR/XR lumbar spine 2-3V IMPRESSION: Thoracic spine: Mild multilevel degenerative disc disease, unchanged. Lumbar spine: Mild degenerative disc disease at L4-L5, unchanged.
== END 2020-10-27 12:43 | disposition home or self-care (01) ==
LOC: HO.XRAY 12:42
PROVIDERS: PCP Nurse Practitioner Primary Care; Visit Provider Nurse Practitioner Primary Care
DX: M51.36 Other intervertebral disc degeneration, lumbar region (principal); M54.41 Lumbago with sciatica, right side; M54.42 Lumbago with sciatica, left side
CPT/HCPCS: 72070; 72100

== ENCOUNTER 2020-11-05 12:49 | Outpatient (REF) | payer OTHER, SELFPAY ==
[2020-11-05 14:54] LABS: Anion Gap 14 (12-20); Blood Urea Nitrogen 17 mg/dL (9-16); Calcium 9.4 mg/dL (8.4-10.2); Carbon Dioxide 24 mmol/L (22-29); Chloride 106 mmol/L (96-108); Cholesterol 220 mg/dL; Estimated Glomerular Filt Rate > 60; Glucose Random 84 mg/dL (60-115); HDL Cholesterol 97 mg/dL; LDL Cholesterol Calculated 107 mg/dl; Magnesium 2.2 mg/dL (1.6-2.6); Potassium 4.9 mmol/L (3.3-5.1); Sodium 139 mmol/L (135-145); Triglycerides 83 mg/dL
[2020-11-05 14:55] LABS: Ferritin 96 ng/mL (10-250); TSH reflex Free T4 0.88 uIU/mL (0.32-4.0)
[2020-11-05 15:08] LABS: Vitamin B12 439 pg/mL (200-900)
[2020-11-05 15:11] LABS: Rheumatoid Factor < 15.0 IU/mL (<15.0)
== END 2020-11-05 12:50 | disposition home or self-care (01) ==
LOC: HO.LAB 12:49
PROVIDERS: PCP Nurse Practitioner Primary Care; Visit Provider Nurse Practitioner Primary Care
DX: R25.2 Cramp and spasm (principal)
CPT/HCPCS: 36415; 80048; 80061; 82607; 82728; 83735; 84443; 86431

== ENCOUNTER 2020-11-15 17:13 | Emergency (ER) | payer OTHER, SELFPAY ==
--- NOTE | 2020-11-15 | ECG_ITS ---
Test Reason : CHEST PAIN Blood Pressure : / mmHG Vent. Rate : 053 BPM Atrial Rate : 053 BPM P-R Int : 182 ms QRS Dur : 080 ms QT Int : 430 ms P-R-T Axes : 045 076 072 degrees QTc Int : 403 ms Sinus bradycardia Otherwise normal ECG When compared with ECG of 15-NOV-2018 11:39, No significant change was found Referred By: Generic ED Physician Electronically Signed By:JAGUAR URBINA MD
[2020-11-15 19:03] VITALS: BP 117/63; PULSE 58; RESP 16; TEMP 36.7; O2SAT 100; BMI 17.7
[2020-11-15 20:44] VITALS: BP 126/59; PULSE 57; RESP 16; O2SAT 100
--- NOTE | 2020-11-15 21:01 | ED_ITS ---
HPI - Chest Pain General Chief Complaint: Chest Pain Stated Complaint: arm pain Time Seen by Provider: 11/15/20 20:58 Source: patient Mode of arrival: ambulatory History of Present Illness HPI narrative: Patient with history of anxiety complaining of pain in the chest for last 2 weeks which increased on deep breaths also noticed some pain in the right arm. Today patient feeling tingling sensation left arm. Patient feels very anxious no shortness of breath no palpitation patient had similar attacks in the past when she has anxiety Related Data Home Medications Medication Instructions Recorded Confirmed cholecalciferol (vitamin D3) 1 tab PO DAILY 04/28/20 04/28/20 cyclobenzaprine 1 tab PO BEDTIME PRN 04/28/20 04/28/20 Previous Rx's Medication Instructions Recorded mineral oil [Fleet Mineral Oil] 118 ml IA DAILY PRN #135 ml 06/24/20 polyethylene glycol 3350 [Miralax] 17 g PO DAILY PRN #30 ea 06/24/20 lorazepam [Ativan] 1 mg PO BEDTIME PRN #10 tab 11/15/20 Allergies Allergy/AdvReac Type Severity Reaction Status Date / Time No Known Allergies Allergy Verified 07/29/20 15:35 Review of Systems Review of Systems: Yes all other systems are reviewed and are negative PMFSH Past Medical History Medical History Arthritis Back pain Chest pain Family history of colon cancer Family history of colonic polyps Hx of constipation Hx of iron deficiency anemia Low blood pressure Migraines Surgical History Hx of colonoscopy Hx of tubal ligation Family History Family History Brother Colon cancer Sister Colon polyps Breast cancer Sister Breast cancer Social History Social History Alcohol intake: never Patient Tobacco Use Status: Never used Tobacco Use of substances other than those prescribed or required for medical reasons: No Advance Directives: No Advance Directives Information Provided: No Patient : No Gender identity: female Physical Exam Vital Signs: Vital Signs: Last Vital Signs Temp 98.0 F 11/15/20 19:03 Pulse 57 11/15/20 20:44 Resp 16 11/15/20 20:44 BP 126/59 L 11/15/20 20:44 Pulse Ox 100 11/15/20 20:44 Body Mass Index 17.7 Appearance: Alert. Oriented X3. No acute distress. anxious Eyes: PERRLA, No Nystagmus ENT: Pharynx normal. Oral Mucosa moist Neck: Normal inspection. Neck supple. CVS: Normal heart rate and rhythm. Pulses normal. Respiratory: No respiratory distress. Equal air entry bilateral, no wheezin g/rales/rhonchi Abdomen: Soft and nontender. Bowel sounds are present, no mass palpable, no CVA tenderness Skin: Skin warm and dry. Normal skin color. Normal skin turgor. Extremities: No lower extremity edema. No calf tenderness Neuro: Oriented X 3. No motor deficit. No sensory deficit.No cerebellar signs , MDM - Chest Pain Lab Data Attestation: I reviewed the patient's lab results. Labs: Lab Results 11/15/20 Range/Units 21:06 Troponin I High Sens < 3.5 (<3.5-17.0) ng/L ECG Data ECG #1: Attestation: I personally reviewed and interpreted this ECG as follows: Interpretation: Sinus bradycardia heart rate 53 beats per minute normal intervals normal axis no acute ST T wave changes no acute ischemic Scores Heart Score History: -0- slightly suspicious ECG: -0- normal Age: -1- >45 - <65 Risk factory: -0- no risk factors known Troponin: -0- < or = normal limit Score: 1 Risk: 1.7% Discharge Plan Discharge Clinical Impression: Atypical chest pain, Anxiety Patient Disposition: Home, Self-Care Instructions: Chest Pain (ED), Anxiety (ED) Additional Instructions: Take medication to relax. Follow-up with your PCP Prescriptions: New lorazepam [Ativan] 1 mg tablet 1 mg PO BEDTIME PRN (Reason: anxiety) Qty: 10 RF: 0 No Action cyclobenzaprine 10 mg tablet 1 tab PO BEDTIME PRN (Reason: Back Pain) RF: 0 cholecalciferol (vitamin D3) 25 mcg (1,000 unit) tablet 1 tab PO DAILY RF: 0 polyethylene glycol 3350 [Miralax] 17 gram powder in packet 17 g PO DAILY PRN (Reason: constipation) Qty: 30 RF: 0 mineral oil [Fleet Mineral Oil] Enema 118 ml IA DAILY PRN (Reason: constipation) Qty: 135 RF: 0 Interventions: ED Discharge Assessment Last Done: 11/15/20 22:23 Discharge Date/Time: 11/15/20 22:23
[2020-11-15 21:43] LABS: Troponin-I High Sensitivity < 3.5 ng/L (<3.5-17.0)
== END 2020-11-15 22:23 | disposition home or self-care (01) ==
PROVIDERS: Emergency Provider Internal Medicine
DX: R07.89 Other chest pain (principal); F41.9 Anxiety disorder, unspecified
CPT/HCPCS: 36415; 84484; 93005; 99283; 99285

== ENCOUNTER 2021-01-20 11:29 | Outpatient (REF) | payer OTHER, SELFPAY | END 2021-01-20 11:30 | disposition home or self-care (01) | LOC: HO.LAB 11:29 | PROVIDERS: Visit Provider Internal Medicine | DX: Z20.822 Contact with and (suspected) exposure to COVID-19 (principal) | CPT/HCPCS: C9803; U0003; U0005 ==

== ENCOUNTER → 2021-03-02 08:49 | Outpatient (BNVA) | payer OTHER, SELFPAY | PROVIDERS: Visit Provider Obstetrics & Gynecology ==

== ENCOUNTER 2021-06-03 11:24 | Outpatient (REF) | payer OTHER, SELFPAY | END 2021-06-03 11:25 | disposition home or self-care (01) | LOC: HO.LAB 11:24 | PROVIDERS: Visit Provider Internal Medicine | DX: Z13.89 Encounter for screening for other disorder (principal) | CPT/HCPCS: 36415; 87635; C9803 ==

== ENCOUNTER 2021-08-14 11:45 | Outpatient (REF) | payer OTHER, SELFPAY ==
--- NOTE | ~2021-08-14 | XR_ITS ---
EXAMINATION: XR CHEST CLINICAL INFORMATION: Anterior chest pain, chondrocostal junctions syndrome, angina. COMPARISON: Chest radiographs 11/15/2018, 08/25/2017 TECHNIQUE: 2 views of the chest were obtained. FINDINGS: There is mild upper zone hyperinflation similar to prior studies. There is no pneumothorax, pleural reaction, airspace consolidation or groundglass opacity. The costophrenic sulci are clear. The heart is normal in size. The vascularity is normal. The hilar and mediastinal contours are unremarkable. There is gentle dextrocurvature lower thoracic spine. No thoracic vertebral compression. No visible bony destructive process. XR/XR chest 2V IMPRESSION: No acute intrathoracic disease.
== END 2021-08-14 11:46 | disposition home or self-care (01) ==
LOC: HO.XRAY 11:45
PROVIDERS: PCP Nurse Practitioner Primary Care; Visit Provider Nurse Practitioner Primary Care
DX: I20.9 Angina pectoris, unspecified (principal); M94.0 Chondrocostal junction syndrome [Tietze]
CPT/HCPCS: 71046

== ENCOUNTER 2021-10-19 12:59 | Outpatient (REF) | payer MEDICAID, SELFPAY ==
--- NOTE | ~2021-10-19 | MM_ITS ---
EXAMINATION: MM DIAGNOSTIC DIGITAL BREAST TOMOSYNTHESIS, BILATERAL US DIAGNOSTIC ULTRASOUND BREAST, LEFT CLINICAL INFORMATION: Due for yearly. Also follow-up probable benign calcifications posterior upper outer right breast. Family history breast cancer, 2 sisters. TC score 11%. COMPARISON: Mammography: 10/13/2020, 01/17/2020 (diagnostic, BI-RADS 3), 06/08/2019, 05/05/2018, 08/17/2017, 07/29/2016 TECHNIQUE: Digital breast tomosynthesis is performed in both the craniocaudal and mediolateral oblique views along with computer-aided detection (CAD). Synthesized 2D images are generated from the tomosynthesis. Additional views are obtained: Right magnification CC, right magnification ML, spot left CC, left rolled CC x2. Ultrasound left breast is targeted to the 11:00 through 7:00 position. Grayscale imaging and color Doppler are performed without and with harmonics. FINDINGS: The breasts are heterogeneously dense, which may obscure small masses (ACR BI-RADS breast composition Category c). Findings fibronodular parenchymal pattern is present. The right breast parenchymal pattern is similar to prior studies. There is no developing density or interval mass or architectural abnormality. Right calcifications for follow-up are stable, likely vascular and now considered benign. The bilateral axilla and skin contours are unremarkable. Left CC view has asymmetric density central outer breast without MLO correlate. Additional views show no definite three-dimensional persistent asymmetry or mass. Ultrasound left breast demonstrates no cystic or solid mass or focal architectural abnormality. 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 Asymmetric density left breast is likely related to summation artifact. As a precaution left breast will be reassessed again in 6 months to exclude a subtle developing density. MM/MM tomosynthesis diagnostic BI IMPRESSION: Left: -Asymmetric density central outer breast on CC view likely summation artifact. Right: -No mammographic evidence of malignancy. -Right calcifications for follow-up now considered to be benign. ASSESSMENT: BI-RADS 3: Probably Benign RECOMMENDATION: Diagnostic left mammography in 6 months. This patient's information was entered into a reminder system with a target due date for their next mammogram.
== END 2021-10-19 13:00 | disposition home or self-care (01) ==
LOC: HO.MAMMO 12:59
PROVIDERS: PCP Nurse Practitioner Primary Care; Visit Provider Nurse Practitioner Primary Care
DX: R92.1 Mammographic calcification found on diagnostic imaging of breast (principal); N64.89 Other specified disorders of breast; Z80.3 Family history of malignant neoplasm of breast
CPT/HCPCS: 76642; 77062; 77066

== ENCOUNTER 2021-11-17 12:10 | Outpatient (REF) | payer MEDICAID, SELFPAY ==
[2021-11-17 13:12] LABS: COVID-19 Test Negative (Negative); IDNOW Serial# 9DB6401D
== END 2021-11-17 12:11 | disposition home or self-care (01) ==
LOC: HO.LAB 12:10
PROVIDERS: Visit Provider Internal Medicine
DX: Z20.822 Contact with and (suspected) exposure to COVID-19 (principal)
CPT/HCPCS: 87635; C9803

== ENCOUNTER 2022-04-22 13:41 | Outpatient (REF) | payer MEDICAID, SELFPAY ==
--- NOTE | ~2022-04-22 | MM_ITS ---
EXAMINATION: MM DIAGNOSTIC DIGITAL BREAST TOMOSYNTHESIS, LEFT CLINICAL INFORMATION: Short interval six-month follow-up for question of asymmetric density central outer left breast. Assess for developing density. Family history breast cancer, 2 sisters. COMPARISON: Mammography: 10/19/2021 (diagnostic, BI-RADS 3), 10/13/2020, 06/08/2019 TECHNIQUE: Digital breast tomosynthesis is performed in both the craniocaudal and mediolateral oblique views along with computer-aided detection (CAD). Synthesized 2D images are generated from the tomosynthesis. FINDINGS: The breasts are heterogeneously dense, which may obscure small masses (ACR BI-RADS breast composition Category c). There is a fibronodular parenchymal pattern similar to prior studies. No developing density or interval mass or architectural abnormality. Asymmetric density suggested on prior imaging is not appreciated. Left breast will be reassessed again at time of annual bilateral mammography, due in 6 months. No abnormal calcifications. Skin contours are smooth. Results are provided to the patient at time of visit by the technologist. MM/MM tomosynthesis diagnostic LT IMPRESSION: -No mammographic evidence of malignancy. -No developing density. No asymmetric density appreciated. ASSESSMENT: BI-RADS 3: Probably Benign RECOMMENDATION: Diagnostic mammography at time of annual bilateral exam, due in 6 months. This patient's information was entered into a reminder system with a target due date for their next mammogram.
== END 2022-04-22 13:42 | disposition home or self-care (01) ==
LOC: HO.MAMMO 13:41
PROVIDERS: PCP Nurse Practitioner Primary Care; Visit Provider Nurse Practitioner Primary Care
DX: N64.89 Other specified disorders of breast (principal)
CPT/HCPCS: 77061; 77065

== ENCOUNTER 2022-08-11 09:26 | Outpatient (REF) | payer MEDICAID, SELFPAY ==
[2022-08-14 02:44] LABS: HPV mRNA E6/E7 rflx Not Detected (Not Detected)
== END 2022-08-11 09:27 | disposition home or self-care (01) ==
LOC: HO.LNP 09:26
PROVIDERS: PCP Nurse Practitioner Primary Care; Visit Provider Obstetrics & Gynecology
DX: Z01.419 Encounter for gynecological examination (general) (routine) without abnormal findings (principal); Z11.51 Encounter for screening for human papillomavirus (HPV)
CPT/HCPCS: 87624; 88142

== ENCOUNTER 2022-09-27 12:49 | Outpatient (REF) | payer MEDICAID, SELFPAY | END 2022-09-27 12:50 | disposition home or self-care (01) | LOC: HO.LNP 12:49 | PROVIDERS: PCP Nurse Practitioner Primary Care; Visit Provider Obstetrics & Gynecology | DX: R87.615 Unsatisfactory cytologic smear of cervix (principal) | CPT/HCPCS: 88142; 99212 ==

== ENCOUNTER 2022-10-28 12:49 | Outpatient (REF) | payer MEDICAID, SELFPAY ==
--- NOTE | ~2022-10-28 | MM_ITS ---
EXAMINATION: MM DIAGNOSTIC DIGITAL BREAST TOMOSYNTHESIS, BILATERAL CLINICAL INFORMATION: Due for yearly. Asymmetric density central outer left breast on CC view in 2021, subsequently resolved, follow-up. The lifetime risk of breast cancer based on the Tyrer-Cuzick Model is 10%. COMPARISON: Mammography: 04/22/2022, 10/19/2021 (diagnostic, BI-RADS 3 left breast), 10/13/2020, 01/17/2020, 06/08/2019, 05/05/2018, 08/17/2017. TECHNIQUE: Digital breast tomosynthesis is performed in both the craniocaudal and mediolateral oblique views along with computer-aided detection (CAD). Synthesized 2D images are generated from the tomosynthesis. FINDINGS: The breasts are heterogeneously dense, which may obscure small masses (ACR BI-RADS breast composition Category c). There is fibronodular parenchymal pattern without architectural abnormality or developing density or mass. No abnormal calcifications. No persistent asymmetric density. The axilla are unremarkable. The skin contours are smooth. No significant changes. Results are provided to the patient at time of visit by the technologist. MM/MM tomosynthesis diagnostic BI IMPRESSION: No mammographic evidence of malignancy. ASSESSMENT: BI-RADS 2: Benign RECOMMENDATION: Routine annual mammography screening. This patient's information was entered into a reminder system with a target due date for their next mammogram.
== END 2022-10-28 12:50 | disposition home or self-care (01) ==
LOC: HO.MAMMO 12:49
PROVIDERS: PCP Nurse Practitioner Primary Care; Visit Provider Nurse Practitioner Primary Care
DX: N64.89 Other specified disorders of breast (principal)
CPT/HCPCS: 77062; 77066

== ENCOUNTER 2023-02-14 09:24 | Outpatient (REF) | payer OTHER, SELFPAY ==
[2023-02-14 11:40] LABS: Appearance Urine Clear; Color Urine Yellow; Glucose Urine UA Negative (Negative); Leukocyte Esterase Urine Negative (Negative); Nitrite Urine Negative (Negative); PH 5.5 (5.0-9.0); Urine Blood Negative (Negative); Urine Ketones Negative (Negative); Urine Protein Negative (Neg-Trace)
[2023-02-14 11:48] LABS: Bacteria Urine None Seen (None Seen); Hyaline Casts Urine 0-2 /LPF (0-2); RBC Urine 0-2 /HPF (0-2); Squamous Epithelial Cell Urine 0-2 /HPF (0-2); WBC Urine 0-5 /HPF (0-5)
[2023-02-14 12:21] LABS: Anion Gap 11 (12-20); Blood Urea Nitrogen 11 mg/dL (9-16); Calcium 9.7 mg/dL (8.4-10.2); Carbon Dioxide 26 mmol/L (22-29); Chloride 108 mmol/L (96-108); Estimated Glomerular Filt Rate > 60; Glucose Random 89 mg/dL (60-115); Sodium 141 mmol/L (135-145)
== END 2023-02-14 09:25 | disposition home or self-care (01) ==
LOC: HO.HHCL 09:24
PROVIDERS: Visit Provider Nurse Practitioner Primary Care
DX: R35.0 Frequency of micturition (principal)
CPT/HCPCS: 36415; 80048; 81001

== ENCOUNTER 2023-04-09 06:56 | Emergency (ER) | payer OTHER, SELFPAY ==
--- NOTE | ~2023-04-09 | XR_ITS ---
EXAMINATION: XR CHEST CLINICAL INFORMATION: Chest pain COMPARISON: Previous chest x-ray August 2021 TECHNIQUE: Frontal view of the chest was obtained. FINDINGS: The cardiac and mediastinal contours are stable. The lungs are well-inflated. There may be emphysematous changes at the lung apices. The lungs are otherwise clear. No pleural effusion or pneumothorax. Degenerative changes of the spine. XR/XR chest 1V IMPRESSION: Well-inflated lungs. No evidence for acute disease in the chest.
--- NOTE | 2023-04-09 06:57 | ECG_ITS ---
Test Reason : CP Blood Pressure : / mmHG Vent. Rate : 060 BPM Atrial Rate : 060 BPM P-R Int : 152 ms QRS Dur : 082 ms QT Int : 408 ms P-R-T Axes : 051 087 073 degrees QTc Int : 408 ms Normal sinus rhythm Low voltage QRS RSR' or QR pattern in V1 suggests right ventricular conduction delay Borderline ECG When compared with ECG of 15-NOV-2020 19:15, No significant change was found Referred By: Generic ED Physician Electronically Signed By:FARHAN EUGENE MD
[2023-04-09 07:07] VITALS: BP 116/58; PULSE 64; RESP 18; TEMP 36.8; O2SAT 100; BMI 20.1
--- NOTE | 2023-04-09 07:15 | ED_ITS ---
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 Started last night patient went to bed with left-sided chest discomfort, pain is localized to the left side of the chest and radiates to left shoulder and left neck feels like electrical shock from the left side of the neck, pain is worse with turning the neck to the right side nothing relieves the pain, no other associated symptoms. No fever, no chills, no lower extremity swelling or tenderness, no recent travel or prolonged immobilization, no history of DVT or PE. No trauma to the chest, patient with known history of anxiety never had similar symptoms in the past. Related Data Home Medications Medication Instructions Recorded Confirmed cholecalciferol (vitamin D3) 25 1 tab PO DAILY 04/28/20 04/28/20 mcg (1,000 unit) tablet Previous Rx's Medication Instructions Recorded polyethylene glycol 3350 17 gram 17 g PO DAILY PRN constipation #30 06/24/20 oral powder packet (Miralax) ea Allergies Allergy/AdvReac Type Severity Reaction Status Date / Time No Known Allergies Allergy Verified 04/09/23 07:10 Review of Systems 2 Review of Systems: All other systems are reviewed and are negative Constitutional: Reports as per HPI and Reports no additional constitutional complaints Eyes: Reports as per HPI and Reports no additional eye complaints Reports system reviewed and no additional complaints, except as documented Cardiovascular: Reports as per HPI and Reports no additional cardiovascular complaints Respiratory: Reports as per HPI and Reports no additional respiratory complaints Gastrointestinal: Reports as per HPI and Reports no additional gastrointestinal complaints Genitourinary: Reports no additional female genitourinary complaints Musculoskeletal: Reports no additional musculoskeletal complaints Skin/Breast: Reports system reviewed and no additional complaints, except as docu Psychiatric: Reports no additional psychiatric complaints Endocrine: Reports no additional endocrine complaints Hematologic/Lymphatic: Reports no additional hematologic/lymphatic complaints Allergic/Immunologic: Reports no additional allergic/immunologic complaints Reports system reviewed and no additional complaints, except as documented and Reports Abnormal speech present PMFSH Past Medical History Medical History Atypical squamous cells cannot exclude high grade squamous intraepithelial lesion on cytologic smear of cervix (ASC-H) Family history of colonic polyps Family history of colon cancer Migraines Chest pain Arthritis Back pain Hx of constipation Hx of iron deficiency anemia Low blood pressure Surgical History Hx of tubal ligation Hx of colonoscopy Family History Family History Brother Colon cancer Sister Colon polyps Breast cancer Sister Breast cancer Social History Social History Household Members: None Housing: Apartment Alcohol intake: never Patient Tobacco Use Status: Never used Tobacco Advance Directives: No Current occupational status: unemployed Sexual orientation: Straight/Heterosexual Gender identity: Female Physical Exam 2 Vital Signs: Vital Signs: Last Vital Signs Temp 98.2 F 04/09/23 07:07 Pulse 64 04/09/23 07:07 Resp 18 04/09/23 07:07 BP 116/58 L 04/09/23 07:07 Pulse Ox 100 04/09/23 07:07 O2 Del Method Room Air 04/09/23 07:07 BMI result Body Mass Index 20.1 Vital signs have been reviewed and appear to be correct. Blood pressure elevated. Heart rate normal. Respiratory rate normal. Temperature normal. Oxygen saturation normal. Appearance: Alert. Oriented X3. No acute distress. Head: Normal external exam. Normocephalic. Atraumatic. No Vela signs noted. No raccoon eyes noted Eyes: PERRLA. EOMI. Conjunctiva and sclera normal. Eyelids normal. ENT: TM's Normal. Pharynx normal. Uvula midline. Moist mucous membranes. No trismus noted. No drooling noted. No muffled voice noted. Neck: Normal inspection. Neck supple. FROM. No adenopathy. Thyroid Normal. No meningeal signs. No neck mass noted. CVS: Normal heart rate and rhythm. Heart sound normal. No murmurs noted. Pulses normal throughout. Respiratory: No respiratory distress. Painless inspiration. Breath sounds normal. No wheezes/rales/rhonchi noted. Tenderness to the left side of lower sternum no step-off. No accessory muscle usage noted or decreased air movement noted. Abdomen: Soft and nontender. Bowel sounds normal in all 4 quadrants. No distention noted. No organomegaly noted. No visible injury noted. Back: No CVA tenderness. Full range of motion noted. Skin: Skin warm and dry. Normal skin color. Normal skin turgor. No rashes/lesions/lacerations noted. Extremities: No lower extremity edema. Extremities exhibit normal range of motion. Extremities nontender. Neuro: Oriented X 3. Cranial nerve exam: II-XII are grossly intact No motor deficit. No sensory deficit. Reflexes normal. Course Reevaluation(s) Reevaluation #1: 57-year-old female with chest pain likely due to chest wall pain, patient at low risk for pulmonary embolism/DVT with negative D-dimer negative troponin x2. Will reassure and discharge home. Time: 11:00 Medical Decision Making Differential Diagnosis Differential Diagnoses: The differential diagnosis associated with the presentation includes (ACS, pulmonary embolism, pneumonia, pneumothorax, pleural effusion, severe anemia, electrolyte abnormality.) Admission/Observation Consideration of admission/observation: Escalation of care including admission/observation considered Lab Data MDM Lab Attestation statement: I reviewed the patient's lab results. 04/09/23 07:21 04/09/23 07:21 Independent Interpretation I performed an independent interpretation of an: EKG (Normal sinus rhythm at 60 beats per minutes, normal intervals, no ST-T changes, no change from previous EKG.) and Plain X-Ray (Chest: No acute intrathoracic pathology.) Radiology Impression Discussion of test interpretation with radiology: I have reviewed the radiologist's reading. Scores Heart Score History: -0- slightly suspicious ECG: -0- normal Age: -1- >45 - <65 Risk factory: -0- no risk factors known Troponin: -0- < or = normal limit Score: 1 Risk: 1.7% Wells DVT Alternative Dx as likely as or more likely than DVT: -2 Score: -2 2-tier Risk: unlikely risk (5%) 3-tier Risk: low risk (3%) Discharge Plan Discharge Clinical Impression: Chest wall pain Patient Disposition: Home, Self-Care Instructions: Chest Wall Pain (ED) Prescriptions: No Action cholecalciferol (vitamin D3) 25 mcg (1,000 unit) tablet 1 tab PO DAILY polyethylene glycol 3350 [Miralax] 17 gram powder in packet 17 g PO DAILY PRN (Reason: constipation) Qty: 30 0RF Referrals: Liliana Wise HAIR SPECIALIST [Primary Care Provider] -
[2023-04-09 07:26] LABS: MANUAL DIFF FLAG NO
[2023-04-09 07:29] LABS: Basophils Percent Auto 0.6 % (0-2); Eosinophils Absolute Auto 0.4 X10*3/uL (0.0-0.4); Eosinophils Percent Auto 7.9 % (0-4); Hematocrit 33.3 % (37.0-47.0); Hemoglobin 10.8 g/dl (12.0-16.0); Imm Gran Abs Auto 0.01 X10*3/uL (0.00-0.03); Imm Gran Pct Auto 0.2 % (0.0-0.4); Lymphocytes Absolute Auto 1.5 X10*3/uL (1.2-4.9); Lymphocytes Percent Auto 31.8 % (20-40); Mean Corpuscular HGB Conc 32.4 g/dl (31.0-35.0); Mean Corpuscular Hemoglobin 26.6 pg (27.0-33.0); Mean Platelet Volume 9.3 fL (9.4-12.3); Monocytes Absolute Auto 0.3 X10*3/uL (0.1-1.2); Monocytes Percent Auto 6.5 % (2-11); Neutrophils Absolute Auto 2.5 x10*3/uL (2.0-8.3); Platelet Count 177 X10*3/uL (160-400); Red Blood Count 4.06 X10*6/uL (4.20-5.50); Red Cell Distribution Width 12.3 % (11.0-16.0); White Blood Count 4.8 X10*3/uL (4.8-10.8)
[2023-04-09 07:44] LABS: D Dimer High Sensitivity < 150 NG/ML
[2023-04-09 07:46] LABS: Appearance Urine Clear; Color Urine Yellow; Glucose Urine UA Negative (Negative); Leukocyte Esterase Urine Trace (Negative); Nitrite Urine Negative (Negative); PH 5.5 (5.0-9.0); Specific Gravity - Urine 1.025 (1.005-1.025); UMIC TRIGGER UACC YES; Urine Blood Negative (Negative); Urine Ketones Negative (Negative); Urine Protein Negative (Neg-Trace)
[2023-04-09] MEDS: 0.9 % Sodium Chloride 1,000 ML 999 ML IV (07:49)
--- NOTE | 2023-04-09 07:49 | PC.NURSE ---
MD placed orders for morphine at this time to help with CP, pt did not want medication as she did not feel her pain was bad enough, and stated she would like to not take anything right now unless it gets worse. She was in agreement to IVF which was started per order
[2023-04-09 07:50] LABS: B Type Natriuretic Peptide 39 pg/mL (<100)
[2023-04-09 07:51] LABS: Bacteria Urine None Seen (None Seen); Hyaline Casts Urine 0-2 /LPF (0-2); RBC Urine 0-2 /HPF (0-2); Squamous Epithelial Cell Urine 0-2 /HPF (0-2); WBC Urine 0-5 /HPF (0-5)
[2023-04-09 07:59] LABS: Alanine Aminotransferase 17 U/L (0-31); Alkaline Phosphatase 67 U/L (39-117); Anion Gap 10 (12-20); Aspartate Amino Transferase 21 U/L (5-31); Bilirubin Direct 0.2 mg/dL (0.0-0.5); Bilirubin Total 0.4 mg/dL (0.0-1.0); Blood Urea Nitrogen 16 mg/dL (9-16); Carbon Dioxide 26 mmol/L (22-29); Chloride 109 mmol/L (96-108); Creatinine Clr Calc Pharmacy 61.8; Estimated Glomerular Filt Rate > 60; Glucose Random 57 mg/dL (60-115); Lipase 33 U/L (8-78); Potassium 3.6 mmol/L (3.3-5.1); Sodium 141 mmol/L (135-145); Total Protein 6.6 g/dL (6.5-8.0); Troponin-I High Sensitivity < 2.7 ng/L (<3.5-17.0)
[2023-04-09 08:30] LABS: Influenza A PCR NEGATIVE (Negative); Influenza B PCR NEGATIVE (Negative); Resp Syncy Virus RNA Qual PCR NEGATIVE (Negative); SARS COV2 PCR INHOUSE NEGATIVE (Negative)
[2023-04-09 08:36] LABS: Glucose, Whole Blood 118 mg/dL (60-115)
[2023-04-09 09:08] VITALS: BP 107/62; PULSE 49; RESP 15; TEMP 36.6; O2SAT 100
[2023-04-09] MEDS: Acetaminophen 325 MG TABLET 650 MG PO (09:28)
[2023-04-09 10:27] LABS: Troponin-I High Sensitivity < 2.7 ng/L (<3.5-17.0)
[2023-04-09 11:11] LABS: Glucose, Whole Blood 78 mg/dL (60-115)
== END 2023-04-09 11:28 | disposition home or self-care (01) ==
PROVIDERS: Emergency Provider Emergency Medicine; PCP Nurse Practitioner Primary Care
DX: R07.89 Other chest pain (principal); F41.9 Anxiety disorder, unspecified; Z20.822 Contact with and (suspected) exposure to COVID-19; Z20.828 Contact with and (suspected) exposure to other viral communicable diseases; D50.9 Iron deficiency anemia, unspecified; Z90.49 Acquired absence of other specified parts of digestive tract; Z79.899 Other long term (current) drug therapy
CPT/HCPCS: 0241U; 36415; 71045; 80048; 80076; 81001; 82947; 83690; 83880; 84484; 85025; 85379; 93005; 96360; 99284; 99285

== ENCOUNTER 2023-05-28 10:45 | Emergency (ER) | payer OTHER, SELFPAY ==
[2023-05-28 10:47] VITALS: BP 103/41; PULSE 71; RESP 18; TEMP 36.8; O2SAT 99; BMI 17.9
[2023-05-28 11:32] VITALS: BP 113/53; PULSE 60; RESP 16; TEMP 36.8; O2SAT 99
[2023-05-28 11:33] VITALS: O2SAT 100
--- NOTE | 2023-05-28 11:36 | ED_ITS ---
HPI - URI/Sore Throat General Chief Complaint: Upper Respiratory Symptoms Stated Complaint: nasal congestion headache ear pain Time Seen by Provider: 05/28/23 11:31 Source: patient and hansard reporter Mode of arrival: ambulatory Limitations: language barrier History of Present Illness HPI Narrative: 57 yo female here with complaints of bilateral ear pain, cough, headache, nasal congestion for 3 days. Patient reports a family at home is sick with similar symptoms. No chest pain, shortness of breath, fevers, chills, neck pain, neck stiffness, skin rash. Related Data Home Medications Medication Instructions Recorded Confirmed cholecalciferol (vitamin D3) 25 1 tab PO DAILY 04/28/20 04/28/20 mcg (1,000 unit) tablet Previous Rx's Medication Instructions Recorded polyethylene glycol 3350 17 gram 17 g PO DAILY PRN constipation #30 06/24/20 oral powder packet (Miralax) ea acetaminophen 325 mg tablet 650 mg (2 x 325 mg) PO Q6H PRN 05/28/23 (Tylenol) fever or pain #30 tabs Allergies Allergy/AdvReac Type Severity Reaction Status Date / Time No Known Allergies Allergy Verified 05/28/23 10:52 Review of Systems Review of Systems: Yes all other systems are reviewed and are negative Constitutional: Constitutional: Reports no additional constitutional complaints, Denies body ache(s), Denies chills, Denies fever(s), Reports headache(s) and Denies weakness Eyes: Eyes: Reports no additional eye complaints and Denies change in vision ENT: Reports system reviewed and no additional complaints, except as documented, Denies dizziness, Reports otalgia, Reports headache(s), Reports nasal congestion, Denies nasal discharge and Denies neck pain Cardiovascular: Cardiovascular: Reports no additional cardiovascular complaints, Denies chest pain, Denies leg edema and Denies dyspnea Respiratory: Respiratory: Reports no additional respiratory complaints, Reports cough and Denies dyspnea Gastrointestinal: Gastrointestinal: Reports no additional gastrointestinal complaints, Denies abdominal pain, Denies diarrhea, Denies nausea and Denies vomiting Genitourinary: Genitourinary: Reports no additional female genitourinary complaints and Denies urinary incontinence Musculoskeletal: Musculoskeletal: Reports no additional musculoskeletal complaints, Denies back pain, Denies arthralgias, Denies joint swelling, Denies neck pain, Denies numbness and Denies tingling Integumentary/Breasts: Skin/Breast: Reports system reviewed and no additional complaints, except as docu and Denies rash Neurologic: Reports system reviewed and no additional complaints, except as documented, Denies Abnormal speech present, Denies dizziness, Reports headache(s), Denies numbness, Denies tingling and Denies weakness PMFSH Past Medical History Attestation statement: The following information was validated with the patient. Source: old records reviewed and nursing notes reviewed Medical History Atypical squamous cells cannot exclude high grade squamous intraepithelial lesion on cytologic smear of cervix (ASC-H) Family history of colonic polyps Family history of colon cancer Migraines Chest pain Arthritis Back pain Hx of constipation Hx of iron deficiency anemia Low blood pressure Surgical History Hx of tubal ligation Hx of colonoscopy Family History Family History Brother Colon cancer Sister Colon polyps Breast cancer Sister Breast cancer Social History Social History Household Members: None Housing: Apartment Alcohol intake: never Patient Tobacco Use Status: Never used Tobacco Smoked in Last 30 Days: No Use of substances other than those prescribed or required for medical reasons: No Advance Directives: No Advance Directives Information Provided: No Patient : No Current occupational status: unemployed Sexual orientation: Straight/Heterosexual Gender identity: Female Physical Exam Vital Signs: Vital Signs: Last Vital Signs Temp 98.3 F 05/28/23 11:32 Pulse 60 05/28/23 11:32 Resp 16 05/28/23 11:32 BP 113/53 L 05/28/23 11:32 Pulse Ox 100 05/28/23 11:33 O2 Del Method Room Air 05/28/23 11:33 BMI result Body Mass Index 17.9 Const: General: cooperative, healthy appearing, comfortable and no acute distress Orientation/consciousness: patient oriented x3 Limitations: no limitations HEENT: Head: Yes normal to inspection Ears: hearing grossly normal bilaterally and TM's normal bilaterally General nose exam: Normal external nose present Face and sinus: Yes normal facial exam Mouth: Normal oral and palatal mucosa present Throat: Yes posterior oropharynx normal, Yes tonsils normal and Yes uvula midline Eyes: General: appearance normal, both eyes and all related structures Pupils: Equal, round and reactive pupils present Neck: Neck: Yes normal visual inspection, Yes full ROM, Yes no lymphadenopathy and Yes no meningeal signs Chest: Chest palpation & inspection: normal inspection of the chest Resp: Effort & Inspection: normal respiratory effort Auscultation: clear to auscultation bilaterally Cardio: Rate: regular rate Rhythm: regular rhythm Peripheral pulses: Peripheral pulses 2+ throughout GI: Inspection: Yes normal to inspection Palpation (GI): Soft to palpation and nontender Auscultation: normal bowel sounds Back/Spine/Pelvis: Thoracic/Lumbar Spine: thoracic and lumbar spine normal to inspection Skin: General skin exam: no rashes or lesions noted Neuro: General: patient oriented x3, no meningeal signs, no focal motor deficits and normal sensation to monofilament Cranial nerves: Yes Equal, round and reactive pupils present Cognition (Neuro): normal cognition Speech: No Abnormal speech present Gait exam (Neuro): Normal gait present Motor exam (neuro): 5/5 motor strength present throughout Extrem: General: Yes normal to inspection, Yes no pedal edema and Yes no calf tenderness Medical Decision Making Medical Decision Making [facility] Narrative: 57 yo female here with complaints of bilateral ear pain, cough, headache, nasal congestion for 3 days.? Patient reports a family at home is sick with similar symptoms.? No chest pain, shortness of breath, fevers, chills, neck pain, neck stiffness, skin rash. Exam is benign. Vitals are stable. Lungs are clear. Will send viral testing Differential Diagnosis Differential Diagnoses: The differential diagnosis associated with the presentation includes Viral syndrome, influenza, low concern for otitis media, strep pharyngitis Admission/Observation Consideration of admission/observation: Escalation of care including admission/observation considered RSV positive. No hypoxia requiring supplemental oxygen and or admission. Lab Data [facility] Lab Attestation statement: I reviewed the patient's lab results. RSV + Labs: Lab Results 05/28/23 Range/Units 11:03 Influenza Type A (PCR) NEGATIVE (Negative) Influenza Type B (PCR) NEGATIVE (Negative) RSV RNA Qual (PCR) POSITIVE A (Negative) SARS-CoV-2 RNA (RT-PCR) NEGATIVE (Negative) Tests considered The following testing was considered but not selected: No hypoxia suggesting need for chest x-ray Prescription Management I considered prescription management with: Antiviral and Antibiotic Discharge Plan Discharge Clinical Impression: Respiratory syncytial virus (RSV) Patient Disposition: Home, Self-Care Instructions: Respiratory Syncytial Virus (ED) Additional Instructions: Testing for COVID and flu are negative. Alternate Motrin and Tylenol for pain as needed Increase fluids, rest Las pruebas de COVID y gripe son negativas. Alterne Motrin y Tylenol para el dolor seg?n sea necesario Aumentar l?quidos, descansar. Prescriptions: New acetaminophen [Tylenol] 325 mg tablet 650 mg PO Q6H PRN (Reason: fever or pain) Qty: 30 0RF No Action cholecalciferol (vitamin D3) 25 mcg (1,000 unit) tablet 1 tab PO DAILY polyethylene glycol 3350 [Miralax] 17 gram powder in packet 17 g PO DAILY PRN (Reason: constipation) Qty: 30 0RF Referrals: Liliana Wise, EXTERIOR INTERIOR SPECIALIST [Primary Care Provider] - 1 week Stand Alone Forms: Work/School Release Print Language: Macedonian
--- NOTE | 2023-05-28 11:41 | PC.NURSE ---
a&ox4, vss and up to date. pt comes in c/o sore throat, bilateral ear, nasal congestion, sinus pain x 3 days. no relief w/ tylenol. denies fever/chills. no sob/wob noted. respirations even/unlabored.
[2023-05-28 11:54] LABS: Influenza A PCR NEGATIVE (Negative); Influenza B PCR NEGATIVE (Negative); Resp Syncy Virus RNA Qual PCR POSITIVE (Negative); SARS COV2 PCR INHOUSE NEGATIVE (Negative)
== END 2023-05-28 12:29 | disposition home or self-care (01) ==
PROVIDERS: Emergency Provider Student in an Organized Health Care Education/Training Program; PCP Nurse Practitioner Primary Care
DX: R09.81 Nasal congestion (principal); B97.4 Respiratory syncytial virus as the cause of diseases classified elsewhere; Z20.822 Contact with and (suspected) exposure to COVID-19; Z20.828 Contact with and (suspected) exposure to other viral communicable diseases
CPT/HCPCS: 0241U; 99283; 99284

== ENCOUNTER 2023-05-31 11:42 | Outpatient (REF) | payer SELFPAY ==
[2023-05-31 13:13] LABS: MANUAL DIFF FLAG NO
[2023-05-31 13:19] LABS: Basophils Percent Auto 0.6 % (0-2); Eosinophils Absolute Auto 0.3 X10*3/uL (0.0-0.4); Hematocrit 37.8 % (37.0-47.0); Hemoglobin 11.9 g/dl (12.0-16.0); Imm Gran Abs Auto 0.01 X10*3/uL (0.00-0.03); Imm Gran Pct Auto 0.2 % (0.0-0.4); Lymphocytes Absolute Auto 1.4 X10*3/uL (1.2-4.9); Lymphocytes Percent Auto 28.3 % (20-40); Mean Corpuscular HGB Conc 31.5 g/dl (31.0-35.0); Mean Corpuscular Hemoglobin 26.6 pg (27.0-33.0); Mean Corpuscular Volume 84.6 fL (80.0-98.0); Mean Platelet Volume 9.8 fL (9.4-12.3); Monocytes Absolute Auto 0.3 X10*3/uL (0.1-1.2); Monocytes Percent Auto 5.6 % (2-11); Neutrophils Percent Auto 60.3 % (45-73); Platelet Count 204 X10*3/uL (160-400); Red Blood Count 4.47 X10*6/uL (4.20-5.50); Red Cell Distribution Width 12.5 % (11.0-16.0)
[2023-05-31 13:42] LABS: Iron 80 mcg/dL (30-160); Percent Iron Saturation 31 % (15-50); Total Iron Binding Capacity 260 mcg/dL (228-428); Unsaturated Iron Binding 180 ug/dL
[2023-05-31 13:49] LABS: Ferritin 118 ng/mL (10-250)
[2023-06-04 14:38] LABS: VITAMIN D (1,25 OH) D3 64 pg/mL; Vit D (1,25-Dihydroxy) Total 64 pg/mL (18-72); Vitamin D (1,25 OH) D2 <8 pg/mL
== END 2023-05-31 11:43 | disposition home or self-care (01) ==
LOC: HO.HHCL 11:42
PROVIDERS: Visit Provider Nurse Practitioner Primary Care
DX: D64.9 Anemia, unspecified (principal); Z87.81 Personal history of (healed) traumatic fracture; Z82.62 Family history of osteoporosis
CPT/HCPCS: 36415; 82652; 82728; 83540; 85025

== ENCOUNTER 2023-06-02 08:56 | Outpatient (REF) | payer SELFPAY | END 2023-06-02 08:57 | disposition home or self-care (01) | LOC: HO.XRAY 08:56 | PROVIDERS: PCP Nurse Practitioner Primary Care; Visit Provider Nurse Practitioner Primary Care | DX: M79.605 Pain in left leg (principal) | CPT/HCPCS: 73552; 73590 ==

== ENCOUNTER 2023-10-03 01:35 | Observation (INO) | payer OTHER, SELFPAY ==
--- NOTE | 2023-10-03 | EEG_ITS ---
This is a 16 channel EEG with an EKG lead. Patient is reported awake during the tracing. Background EEG rhythm is low amplitude fast with no obvious asymmetry or paroxysmal tendency. Photic stimulation is unremarkable. Hyperventilation is not performed. Cardiac lead does not reveal any significant abnormality. No sharp wave spikes or paroxysmal tendency noted. IMPRESSION: Unremarkable electroencephalogram. MD DIANA Choi/TELLY / [id number]
--- NOTE | ~2023-10-03 | XR_ITS ---
EXAMINATION: XR CHEST CLINICAL INFORMATION: Weakness. COMPARISON: 04/09/2023. TECHNIQUE: Frontal view of the chest was obtained. FINDINGS: The cardiomediastinal silhouette is within normal limits and stable. There is no focal lung consolidation or pleural effusions. The bony structures are osteopenic. The soft tissues are unremarkable. XR/XR chest 1V IMPRESSION: No acute cardiopulmonary process.
--- NOTE | ~2023-10-03 | MR_ITS ---
MRI OF THE BRAIN WITHOUT IV CONTRAST INDICATION: Altered mental status. Question acute CVA. COMPARISON: Head CT 10/03/2023. TECHNIQUE: Multiplanar multisequence MR imaging of the brain was obtained without IV contrast. FINDINGS: Trace subacute subdural hematoma along the lateral aspect of the left posterior fossa that does not result in significant mass effect. The major flow voids at the skull base are preserved. Artifact versus a punctate acute lacunar infarct within the left dorsal lawrence. No mass effect. The midline structures are normal. The cerebellar tonsils are normally positioned. The cerebellum and brainstem are normal. The craniocervical junction is normal. Osseous marrow signal intensity is homogenous. The visualized soft tissues are unremarkable. There is moderate mucosal thickening throughout the paranasal sinuses. MR/MR head/brain wo con IMPRESSION: Trace subacute subdural hematoma along the lateral aspect of the left posterior fossa that does not result in significant mass effect. Artifact versus a punctate acute lacunar infarct within the left dorsal lawrence. No mass effect.
--- NOTE | ~2023-10-03 | CT_ITS ---
EXAMINATION: CT HEAD WITHOUT CONTRAST CLINICAL INFORMATION: Altered mental status. COMPARISON: MRI brain performed 12/30/2015. TECHNIQUE: Contiguous axial imaging was performed from the skull base to vertex without intravenous administration of contrast. This CT examination was performed using dose optimization techniques as appropriate, variously including the following: *Automated exposure control *Adjustment of mA and/or kV according to patient size (this includes techniques or standardized protocols for targeted exams where dose is matched to indication/reason for exam; i.e. extremities or head) *Use of iterative reconstruction technique DLP: 586 mGy-cm FINDINGS: The lateral, third and fourth ventricles are normally outlined. The cortical sulci and basal cisterns are normally outlined as well. There is no acute territorial defect, hemorrhage or midline shift. The extra-axial spaces are unremarkable. Calvarium: Intact. Maxillofacial sinuses and mastoids: There is mucosal thickening/opacities within the ethmoid sinuses. There is also mucosal thickening of the posterior maxillary sinuses. The remaining visualized maxillofacial sinuses and mastoids are clear. CT/CT head/brain wo IV con IMPRESSION: No acute intracranial abnormality. Ethmoid sinus opacities of uncertain significance.
--- NOTE | 2023-10-03 01:46 | ED_ITS ---
HPI - Weakness General Chief complaint: Weakness Stated complaint: weakness Time Seen by Provider: 10/03/23 01:39 Source: patient, family, old records reviewed and new car inspector Mode of arrival: EMS Limitations: altered mental status History of Present Illness HPI Narrative: 58 yo female with PMH of migraines, anemia here with c/o waking granddaughter up stating something is wrong and then stating she was weak and had a hard time walking. The granddaughter then had a hard time figuring out exactly what was wrong so she called her dad and they kept asking if it was a panic attack but the patient appears confused and staring off. The patient is not giving much information. No concern for med error, drug abuse, no prior seizures. Went to bed at 10pm normal and then woke up feeling weak in both legs, scared, something wrong. Granddaughter notes she has been normal and eating okay recently. When we tried to interview her without the granddaughter as we were waiting for family - the patient was just stating no and crying for her granddaughter and would not answer questions. MD Complaint: lack of energy and difficulty walking Onset (ago): hour(s) (upon waking prior to arrival ) Duration: constant Location: generalized, LLE and RLE Migration: none Severity: severe Quality: other Relieving factors: other Exacerbating factors: movement Associated symptoms: loss of appetite Related Data Home Medications ?Medication ?Instructions ?Recorded ?Confirmed cholecalciferol (vitamin D3) 25 1 tab PO DAILY 04/28/20 04/28/20 mcg (1,000 unit) tablet Previous Rx's ?Medication ?Instructions ?Recorded polyethylene glycol 3350 17 gram 17 g PO DAILY PRN constipation #30 06/24/20 oral powder packet (Miralax) ea acetaminophen 325 mg tablet 650 mg (2 x 325 mg) PO Q6H PRN 05/28/23 (Tylenol) fever or pain #30 tabs Allergies Allergy/AdvReac Type Severity Reaction Status Date / Time No Known Allergies Allergy Verified 10/03/23 02:01 Review of Systems 2 Review of Systems: ROS unable to be obtained due to altered mental status PMFSH Past Medical History Attestation statement: The following information was validated with the patient. Source: old records reviewed Medical History Atypical squamous cells cannot exclude high grade squamous intraepithelial lesion on cytologic smear of cervix (ASC-H) Family history of colonic polyps Family history of colon cancer Migraines Chest pain Arthritis Back pain Hx of constipation Hx of iron deficiency anemia Low blood pressure Surgical History Hx of tubal ligation Hx of colonoscopy Family History Family History Brother Colon cancer Sister Colon polyps Breast cancer Sister Breast cancer Social History Social History Household Members: None Housing: Apartment Alcohol intake: never Patient Tobacco Use Status: Never used Tobacco Smoked in Last 30 Days: No Use of substances other than those prescribed or required for medical reasons: No Advance Directives: Yes Advance Directives Information Provided: No Advance Directives on File: No Current occupational status: unemployed Sexual orientation: Straight/Heterosexual Gender identity: Female Physical Exam 2 Vital Signs: Vital Signs: Last Vital Signs Temp 97.8 F 10/03/23 05:04 Pulse 59 10/03/23 05:04 Resp 16 10/03/23 05:04 BP 100/47 L 10/03/23 05:04 Pulse Ox 97 10/03/23 05:04 O2 Del Method Room Air 10/03/23 05:04 BMI result Body Mass Index 18.0 Appearance: Alert. Oriented X2. Staring off states she is scared, slow to respond. Mild acute distress. pointing outside of the room when asked what she is pointing at she states my granddaughter but her granddaughter is not there. Frail and older appearing than stated age. Eyes: Pupils equal, round and reactive to light. no nystagmus ENT: Pharynx normal. Neck: Normal inspection. Neck supple. CVS: Normal heart rate and rhythm. Pulses normal. Respiratory: No respiratory distress. Breath sounds normal. Abdomen: Soft and nontender. Skin: Skin warm and dry. pale skin color. Normal skin turgor. Extremities: No lower extremity edema. No calf ttp Neuro: Oriented X 2. No motor deficit. No sensory deficit. Will not participate in some parts of the exam states no then stares off, shaking in both legs at times but no clonus. initially able to raise both legs then will not lift or try to move her legs and no compensatory pressure into the bed or feeling of heel pressure in my palm with opposite leg raise. NIH Stroke Scale Internal: Initial- Upon Arrival Level of Consciousness: Alert Level of Consciousness Questions: Answers one question correctly Level of Consciousness Commands: Performs both tasks correctly Best Gaze: Normal Visual: No visual loss Facial Palsy: Normal Motor Arm (Right): No drift Motor Arm (Left): No drift Motor Leg (Right): No drift Motor Leg (Left): No drift Limb Ataxia: Absent Sensory: Normal Best Language: No aphasia Dysarthia: Normal Extinction and Inattention: No abnormality Score: 1 Course Course Course Narrative: initially able to raise both legs then states she is too weak to even move either leg at this point Reevaluation(s) Reevaluation #1: reportedly got up and walked to the bathroom still has weakness granddaughter also seems bewildered as patient now states she is fine and that she was just scared and nervous but patient is not really making full sense staring off didn't know she had IV in her arm, not fully following conversations Medications Administered Generic Name Dose Route Start Last Admin Trade Name Freq PRN Reason Stop Dose Admin Sodium Chloride 1,000 mls @ 999 mls/hr 10/03/23 05:00 10/03/23 05:23 Ns IV 10/03/23 06:00 999 mls/hr .Q1H1M [facility] Administration Medical Decision Making Medical Decision Making [facility] Narrative: 58 yo female with PMH of migraines, anemia here with c/o waking up and not feeling right now is confused and seems to be staring off at times no obvious focal deficit other than confusion. At this time given NIH score and confusion will hold off TNK she is encephalopatic - denies any ingestions. No hx of this, no memory issues. She at times refuses to participate in neuro exam then states she doesn't know why and then stares off. Differential Diagnosis Differential Diagnoses: The differential diagnosis associated with the presentation includes acute UTI, viral syndrome, ICH, stroke - though no focal deficits and presenting at 4 hours not a candidate for TNK based off her presentation and score on NIH Admission/Observation Consideration of admission/observation: Escalation of care including admission/observation considered not at baseline, seems encephalopathic Consult Healthcare Provider Management of the patient was discussed with: Hospitalist (will admit) Lab Data [facility] Lab Attestation statement: I reviewed the patient's lab results. 10/03/23 02:11 10/03/23 02:10 Labs: Lab Results 10/03/23 10/03/23 10/03/23 Range/Units 02:09 02:10 02:11 WBC 5.6 (4.8-10.8) X10*3/uL RBC 4.21 (4.20-5.50) X10*6/uL Hgb 11.1 L (12.0-16.0) g/dl Hct 35.0 L (37.0-47.0) % MCV 83.1 (80.0-98.0) fL MCH 26.4 L (27.0-33.0) pg MCHC 31.7 (31.0-35.0) g/dl RDW 12.9 (11.0-16.0) % Plt Count 174 (160-400) X10*3/uL MPV 9.5 (9.4-12.3) fL Immature Gran % (Auto) 0.2 (0.0-0.4) % Neut % (Auto) 49.3 (45-73) % Lymph % (Auto) 35.8 (20-40) % [facility] % (Auto) 6.0 (2-11) % Eos % (Auto) 8.0 H (0-4) % Baso % (Auto) 0.7 (0-2) % Lymph # (Auto) 2.0 (1.2-4.9) X10*3/uL [facility] # (Auto) 0.3 (0.1-1.2) X10*3/uL Eos # (Auto) 0.5 H (0.0-0.4) X10*3/uL Baso # (Auto) 0.0 (0.0-0.2) X10*3/uL Abs Immat Gran (auto) 0.01 (0.00-0.03) X10*3/uL Absolute Neuts (auto) 2.8 (2.0-8.3) x10*3/uL Absolute Nucleated RBC 0.000 (0.0-0.012) X10*3/uL Nucleated RBC % (auto) 0.0 (0.0-0.2) /100WBC PT 12.5 (11.1-13.3) SEC INR 1.0 (0.9-1.1) VBG pH (7.32-7.43) VBG pCO2 mmHg VBG pO2 mmHg VBG HCO3 (22-26) mmol/L VBG O2 Saturation % VBG Base Excess mmol/L Sodium 140 (135-145) mmol/L Potassium 4.0 (3.3-5.1) mmol/L Chloride 108 (96-108) mmol/L Carbon Dioxide 25 (22-29) mmol/L Anion Gap 11 L (12-20) BUN 17 H (9-16) mg/dL Creatinine 0.85 (0.5-1.4) mg/dL Estim Creat Clear Calc 62.1 Estimated GFR > 60 Random Glucose 121 H (60-115) mg/dL Lactic Acid 0.9 (0.5-2.0) mmol/L Calcium 9.2 (8.4-10.2) mg/dL Magnesium 1.9 (1.6-2.6) mg/dL Total Bilirubin 0.4 (0.0-1.0) mg/dL Direct Bilirubin 0.2 (0.0-0.5) mg/dL AST 21 (5-31) U/L ALT 20 (0-31) U/L Alkaline Phosphatase 74 (39-117) U/L Ammonia 19 (13-55) umol/L Total Creatine Kinase 117 (26-140) U/L Troponin I High Sens < 2.7 (<3.5-17.0) ng/L B-Natriuretic Peptide 51 (<100) pg/mL Total Protein 7.0 (6.5-8.0) g/dL Albumin 4.2 (3.5-5.0) g/dL Lipase 30 (8-78) U/L TSH 2.82 (0.32-4.0) uIU/mL Salicylates < 5.0 L (15-30) mg/dL Ethyl Alcohol < 10 mg/dL Influenza Type A (PCR) NEGATIVE (Negative) Influenza Type B (PCR) NEGATIVE (Negative) RSV RNA Qual (PCR) NEGATIVE (Negative) SARS-CoV-2 RNA (RT-PCR) NEGATIVE (Negative) 10/03/23 Range/Units 02:16 WBC (4.8-10.8) X10*3/uL RBC (4.20-5.50) X10*6/uL Hgb (12.0-16.0) g/dl Hct (37.0-47.0) % MCV (80.0-98.0) fL MCH (27.0-33.0) pg MCHC (31.0-35.0) g/dl RDW (11.0-16.0) % Plt Count (160-400) X10*3/uL MPV (9.4-12.3) fL Immature Gran % (Auto) (0.0-0.4) % Neut % (Auto) (45-73) % Lymph % (Auto) (20-40) % [facility] % (Auto) (2-11) % Eos % (Auto) (0-4) % Baso % (Auto) (0-2) % Lymph # (Auto) (1.2-4.9) X10*3/uL [facility] # (Auto) (0.1-1.2) X10*3/uL Eos # (Auto) (0.0-0.4) X10*3/uL Baso # (Auto) (0.0-0.2) X10*3/uL Abs Immat Gran (auto) (0.00-0.03) X10*3/uL Absolute Neuts (auto) (2.0-8.3) x10*3/uL Absolute Nucleated RBC (0.0-0.012) X10*3/uL Nucleated RBC % (auto) (0.0-0.2) /100WBC PT (11.1-13.3) SEC INR (0.9-1.1) VBG pH 7.33 (7.32-7.43) VBG pCO2 49 mmHg VBG pO2 37 mmHg VBG HCO3 26 (22-26) mmol/L VBG O2 Saturation 58.0 % VBG Base Excess 0.1 mmol/L Sodium (135-145) mmol/L Potassium (3.3-5.1) mmol/L Chloride (96-108) mmol/L Carbon Dioxide (22-29) mmol/L Anion Gap (12-20) BUN (9-16) mg/dL Creatinine (0.5-1.4) mg/dL Estim Creat Clear Calc Estimated GFR Random Glucose (60-115) mg/dL Lactic Acid (0.5-2.0) mmol/L Calcium (8.4-10.2) mg/dL Magnesium (1.6-2.6) mg/dL Total Bilirubin (0.0-1.0) mg/dL Direct Bilirubin (0.0-0.5) mg/dL AST (5-31) U/L ALT (0-31) U/L Alkaline Phosphatase (39-117) U/L Ammonia (13-55) umol/L Total Creatine Kinase (26-140) U/L Troponin I High Sens (<3.5-17.0) ng/L B-Natriuretic Peptide (<100) pg/mL Total Protein (6.5-8.0) g/dL Albumin (3.5-5.0) g/dL Lipase (8-78) U/L TSH (0.32-4.0) uIU/mL Salicylates (15-30) mg/dL Ethyl Alcohol mg/dL Influenza Type A (PCR) (Negative) Influenza Type B (PCR) (Negative) RSV RNA Qual (PCR) (Negative) SARS-CoV-2 RNA (RT-PCR) (Negative) Independent Interpretation I performed an independent interpretation of an: EKG, Plain X-Ray (no pneumonia) and CT Scan (no ich) Interpretation: Rate: 62 Rhythm: NSR [place]: normal Normal P waves. Normal CHARU. Normal QRS complex. ST T wave : normal no ESB qTC: 424 prior studies: no acute ischemia The study has been interpreted contemporaneously by me. . Radiology Impression Discussion of test interpretation with radiology: I have reviewed the radiologist's reading. Independent Historian Clinical information obtained from an independent historian. History obtained from or confirmed by: EMS and Other External Record Review External record reviewed: Inpatient record Discharge Plan Discharge Clinical Impression: Weakness, Acute encephalopathy Patient Disposition: Admitted As Inpatient
[2023-10-03 01:56] VITALS: BP 110/70; PULSE 68; O2SAT 97
[2023-10-03 01:59] VITALS: BP 117/62; PULSE 67; RESP 17; TEMP 36.5; O2SAT 100; BMI 18.0
--- NOTE | 2023-10-03 02:01 | ECG_ITS ---
Test Reason : WEAKNESS Blood Pressure : / mmHG Vent. Rate : 062 BPM Atrial Rate : 062 BPM P-R Int : 190 ms QRS Dur : 080 ms QT Int : 418 ms P-R-T Axes : 068 080 073 degrees QTc Int : 424 ms Normal sinus rhythm Normal ECG No significant changes when compared with the previous EKG of 09 apr 2023 Referred By: Jody Madrigal Electronically Signed By:ANNIE ROBERTSON
[2023-10-03 02:18] LABS: Basophils Percent Auto 0.7 % (0-2); Eosinophils Absolute Auto 0.5 X10*3/uL (0.0-0.4); Hemoglobin 11.1 g/dl (12.0-16.0); Imm Gran Abs Auto 0.01 X10*3/uL (0.00-0.03); Imm Gran Pct Auto 0.2 % (0.0-0.4); Lymphocytes Percent Auto 35.8 % (20-40); MANUAL DIFF FLAG NO; Mean Corpuscular HGB Conc 31.7 g/dl (31.0-35.0); Mean Corpuscular Hemoglobin 26.4 pg (27.0-33.0); Mean Corpuscular Volume 83.1 fL (80.0-98.0); Mean Platelet Volume 9.5 fL (9.4-12.3); Monocytes Absolute Auto 0.3 X10*3/uL (0.1-1.2); Neutrophils Absolute Auto 2.8 x10*3/uL (2.0-8.3); Neutrophils Percent Auto 49.3 % (45-73); Platelet Count 174 X10*3/uL (160-400); Red Blood Count 4.21 X10*6/uL (4.20-5.50); Red Cell Distribution Width 12.9 % (11.0-16.0); White Blood Count 5.6 X10*3/uL (4.8-10.8)
[2023-10-03 02:23] LABS: VBG Base Excess 0.1 mmol/L; VBG HCO3 26 mmol/L (22-26); VBG pCO2 49 mmHg; VBG pH 7.33 (7.32-7.43); VBG pO2 37 mmHg
[2023-10-03 02:23] LABS: Venous Blood Gas Refer to POC result
[2023-10-03 02:26] LABS: Prothrombin Time 12.5 SEC (11.1-13.3)
[2023-10-03 02:29] LABS: Ammonia 19 umol/L (13-55)
[2023-10-03 02:32] LABS: Lactic Acid 0.9 mmol/L (0.5-2.0)
[2023-10-03 02:39] LABS: B Type Natriuretic Peptide 51 pg/mL (<100)
[2023-10-03 02:48] LABS: Alanine Aminotransferase 20 U/L (0-31); Albumin Level 4.2 g/dL (3.5-5.0); Alkaline Phosphatase 74 U/L (39-117); Anion Gap 11 (12-20); Aspartate Amino Transferase 21 U/L (5-31); Bilirubin Direct 0.2 mg/dL (0.0-0.5); Bilirubin Total 0.4 mg/dL (0.0-1.0); Blood Urea Nitrogen 17 mg/dL (9-16); Calcium 9.2 mg/dL (8.4-10.2); Carbon Dioxide 25 mmol/L (22-29); Chloride 108 mmol/L (96-108); Creatinine Clr Calc Pharmacy 62.1; Estimated Glomerular Filt Rate > 60; Ethanol < 10 mg/dL; Glucose Random 121 mg/dL (60-115); Lipase 30 U/L (8-78); Magnesium 1.9 mg/dL (1.6-2.6); Sodium 140 mmol/L (135-145); Troponin-I High Sensitivity < 2.7 ng/L (<3.5-17.0)
[2023-10-03 02:58] LABS: Influenza A PCR NEGATIVE (Negative); Influenza B PCR NEGATIVE (Negative); Resp Syncy Virus RNA Qual PCR NEGATIVE (Negative); SARS COV2 PCR INHOUSE NEGATIVE (Negative)
[2023-10-03 02:58] LABS: TSH reflex Free T4 2.82 uIU/mL (0.32-4.0)
[2023-10-03 04:14] LABS: Salicylate < 5.0 mg/dL (15-30)
[2023-10-03 05:04] VITALS: BP 100/47; PULSE 59; RESP 16; TEMP 36.6; O2SAT 97
[2023-10-03] MEDS: 0.9 % Sodium Chloride 1,000 ML 999 ML IV (05:23)
--- NOTE | 2023-10-03 05:28 | PM.IMHP ---
History of Present Illness Date of Service: 10/03/23 Chief Complaint: Confusion This is a 58-year-old female with pertinent history of iron deficiency anemia who was brought to the emergency department for evaluation of confusion and weakness. History was obtained with the help of heat engineering teacher and granddaughter at bedside. As per the granddaughter, patient was in normal health and she went to bed at 22:00 yesterday. Patient woke up around 01:00 saying she did not feel well. Patient stated that she was having weakness and felt she could not walk. Patient felt she would fall to 1 side if you would walk. The granddaughter also stated that patient seemed confused which is unusual for her. Patient was staring off in space intermittently. No history of CVA or seizures. No jerking movement of extremities. No tongue bite or urinary or bowel incontinence. No cough, fever, chills, nausea, vomiting, abdominal pain, changes in urinary or bowel habits. Review of Systems Constitutional: Constitutional: Reports weakness Cardiovascular: Cardiovascular: Reports no additional cardiovascular complaints Respiratory: Respiratory: Reports no additional respiratory complaints Gastrointestinal: Gastrointestinal: Reports no additional gastrointestinal complaints Genitourinary: Genitourinary: Reports no additional female genitourinary complaints Neurologic: Reports confusion and Reports weakness Psychiatric: Psychiatric: Reports confusion [facility] Medical History Atypical squamous cells cannot exclude high grade squamous intraepithelial lesion on cytologic smear of cervix (ASC-H) Family history of colonic polyps Family history of colon cancer Migraines Chest pain Arthritis Back pain Hx of constipation Hx of iron deficiency anemia Low blood pressure Family History Brother Colon cancer Sister Colon polyps Breast cancer Sister Breast cancer Surgical History Hx of tubal ligation Hx of colonoscopy Social History Household Members: None Housing: Apartment Alcohol intake: never Patient Tobacco Use Status: Never used Tobacco Smoked in Last 30 Days: No Use of substances other than those prescribed or required for medical reasons: No Advance Directives: Yes Advance Directives Information Provided: No Advance Directives on File: No Current occupational status: unemployed Sexual orientation: Straight/Heterosexual Gender identity: Female Meds Allergies Allergy/AdvReac Type Severity Reaction Status Date / Time No Known Allergies Allergy Verified 10/03/23 02:01 Active Medications: Current Medications Acetaminophen (Acetaminophen 325 Mg Tablet) 650 mg PO Q6H PRN PRN Reason: Pain, Mild (Pain Scale 1-3) Enoxaparin Sodium (Enoxaparin Sodium 40 Mg/0.4 Ml Syringe) 40 mg SUBCUT Q24H [facility] Sodium Chloride (Ns) 1,000 mls @ 999 mls/hr IV .Q1H1M [facility] Stop: 10/03/23 06:00 Last Admin: 10/03/23 05:23 Dose: 999 mls/hr Melatonin (Melatonin 3 Mg Tablet) 6 mg PO BEDTIME PRN PRN Reason: Insomnia Ondansetron HCl (Ondansetron Hcl 4 Mg/2 Ml Vial) 4 mg IVPUSH Q8H PRN PRN Reason: Nausea and Vomiting Sodium Chloride (0.9 % Sodium Chloride Flush 3 Ml Syringe) 3 ml IVFLUSH QSHIFT [facility] Home Medications ?Medication ?Instructions ?Recorded ?Confirmed ?Last Taken ?Type cholecalciferol (vitamin D3) 25 1 tab PO DAILY 04/28/20 04/28/20 Unknown History mcg (1,000 unit) tablet Physical Exam Vital Signs and Narrative: Vital Signs: Last Vital Signs Temp 97.8 F 10/03/23 05:04 Pulse 59 10/03/23 05:04 Resp 16 10/03/23 05:04 BP 100/47 L 10/03/23 05:04 Pulse Ox 97 10/03/23 05:04 O2 Del Method Room Air 10/03/23 05:04 BMI result Body Mass Index 18.0 Elderly female lying in bed in no distress Neck supple, no JVD Regular rate and rhythm, S1-S2 heard Regular breath sounds bilaterally, no wheezing or crackles appreciated Abdomen soft nontender, no guarding, no rigidity Patient is awake, alert and oriented to self, disoriented to place, states can not left lower extremity due to weakness, intermittent staring and not participating in conversation, no nystagmus, no facial droop, no upper extremity weakness, unable to assess gait Psych: Normal mood No pedal edema Const: General: confusion Orientation/consciousness: confusion Neuro: General: confusion Results Labs 10/03/23 02:11 10/03/23 02:10 Labs: Laboratory Results - last 24 hr 10/03/23 10/03/23 10/03/23 02:09 02:10 02:11 MCV 83.1 MCH 26.4 L MCHC 31.7 RDW 12.9 Plt Count 174 MPV 9.5 Immature Gran % (Auto) 0.2 Neut % (Auto) 49.3 Lymph % (Auto) 35.8 [place] % (Auto) 6.0 Eos % (Auto) 8.0 H Baso % (Auto) 0.7 Lymph # (Auto) 2.0 [place] # (Auto) 0.3 Eos # (Auto) 0.5 H Baso # (Auto) 0.0 Abs Immat Gran (auto) 0.01 Absolute Neuts (auto) 2.8 Absolute Nucleated RBC 0.000 Nucleated RBC % (auto) 0.0 PT 12.5 INR 1.0 VBG pH VBG pCO2 VBG pO2 VBG HCO3 VBG O2 Saturation VBG Base Excess Anion Gap 11 L Estim Creat Clear Calc 62.1 Estimated GFR > 60 Random Glucose 121 H Lactic Acid 0.9 Calcium 9.2 Magnesium 1.9 Total Bilirubin 0.4 Direct Bilirubin 0.2 AST 21 ALT 20 Alkaline Phosphatase 74 Ammonia 19 Total Creatine Kinase 117 Troponin I High Sens < 2.7 B-Natriuretic Peptide 51 Total Protein 7.0 Albumin 4.2 Lipase 30 TSH 2.82 Salicylates < 5.0 L Ethyl Alcohol < 10 Influenza Type A (PCR) NEGATIVE Influenza Type B (PCR) NEGATIVE RSV RNA Qual (PCR) NEGATIVE SARS-CoV-2 RNA (RT-PCR) NEGATIVE 10/03/23 02:16 MCV MCH MCHC RDW Plt Count MPV Immature Gran % (Auto) Neut % (Auto) Lymph % (Auto) [place] % (Auto) Eos % (Auto) Baso % (Auto) Lymph # (Auto) [place] # (Auto) Eos # (Auto) Baso # (Auto) Abs Immat Gran (auto) Absolute Neuts (auto) Absolute Nucleated RBC Nucleated RBC % (auto) PT INR VBG pH 7.33 VBG pCO2 49 VBG pO2 37 VBG HCO3 26 VBG O2 Saturation 58.0 VBG Base Excess 0.1 Anion Gap Estim Creat Clear Calc Estimated GFR Random Glucose Lactic Acid Calcium Magnesium Total Bilirubin Direct Bilirubin AST ALT Alkaline Phosphatase Ammonia Total Creatine Kinase Troponin I High Sens B-Natriuretic Peptide Total Protein Albumin Lipase TSH Salicylates Ethyl Alcohol Influenza Type A (PCR) Influenza Type B (PCR) RSV RNA Qual (PCR) SARS-CoV-2 RNA (RT-PCR) Imaging Radiologist's Impressions: Impressions Chest X-Ray 10/03/23 02:20 IMPRESSION: No acute cardiopulmonary process. Head CT 10/03/23 02:55 IMPRESSION: No acute intracranial abnormality. Ethmoid sinus opacities of uncertain significance. Assessment and Plan (1) Acute encephalopathy: Status: Acute (2) Weakness: Status: Acute Plan This is a 58-year-old female with pertinent history of iron deficiency anemia who was brought to the emergency department for evaluation of confusion and weakness. #. Acute encephalopathy with weakness ?ataxia: Will admit patient for observation. Obtaining MRI to rule out acute stroke. Also obtaining EEG. Will order B12 and folate. Consulting Neurology, appreciate assistance. TSH and CK okay #. Iron-deficiency anemia: Not on iron supplementation due to constipation DVT prophylaxis: Lovenox Full code Quality Stroke Does the patient have a stroke diagnosis?: No VTE Prior VTE?: No VTE Risk Level:: Medical - moderate - high VTE Device Contraindication: Treatment Not Indicated VTE Drug Contraindication: N/A - Med Ordered
[2023-10-03 05:34] LABS: Troponin-I High Sensitivity < 2.7 ng/L (<3.5-17.0)
[2023-10-03] MEDS: Enoxaparin Sodium 40 MG/0.4 ML SYRINGE SUBCUT (05:45)
[2023-10-03 05:46] LABS: Appearance Urine Clear; Color Urine Yellow; Glucose Urine UA Negative (Negative); Leukocyte Esterase Urine Small (1+) (Negative); Nitrite Urine Negative (Negative); PH 6.5 (5.0-9.0); Specific Gravity - Urine <= 1.005 (1.005-1.025); UMIC TRIGGER UACC YES; Urine Blood Negative (Negative); Urine Ketones Negative (Negative); Urine Protein Negative (Neg-Trace)
[2023-10-03 05:57] LABS: Bacteria Urine None Seen (None Seen); Hyaline Casts Urine 0-2 /LPF (0-2); RBC Urine 0-2 /HPF (0-2); Squamous Epithelial Cell Urine 0-2 /HPF (0-2); UACC Culture Trigger YES; WBC Urine 0-5 /HPF (0-5)
[2023-10-03 06:04] LABS: Amphetamine Screen Urine Not Detected (Not Detect); Barbiturates, Urine Not Detected (Not Detect); Benzodiazepines Screen Urine Not Detected (Not Detect); Buprenorphine Scr Not Detected (Not Detect); Cannabinoid Screen Urine Not Detected (Not Detect); Cocaine Screen Urine Not Detected (Not Detect); Fentanyl, urine Not Detected (Not Detect); Methadone Screen, Urine Not Detected (Not Detect); Opiate Screen Urine Not Detected (Not Detect); Oxycodone Screen Urine Not Detected (Not Detect); Phencyclidine Screen Urine Not Detected (Not Detect)
[2023-10-03 06:22] LABS: Folate 8.5 ng/mL (> or = 4.0); Vitamin B12 435 pg/mL (200-900)
[2023-10-03] MEDS: 0.9 % Sodium Chloride Flush 3 ML SYRINGE IVFLUSH ×3 (09:03→23:13)
--- NOTE | 2023-10-03 09:03 | P.CNNE_ITS ---
History of Present Illness Data of Consult Service Date: 10/03/23 Primary Care Provider: Unknown Physician HPI Reason for consult: Confusion and weakness 58 years old woman who came to hospital with new onset of ?confusion and weakness?. Apparently she woke up and was noted to be confused and stated that she was weak in her legs and was going to fall. There was no obvious exposure to any new chemical or drug, she was not drinking alcohol, and did not have any recent cold or flu-like illness or fever. There was no history of recent trauma. Review of Systems 2 Review of Systems: As per HPI [facility] Past Medical History Medical History Atypical squamous cells cannot exclude high grade squamous intraepithelial lesion on cytologic smear of cervix (ASC-H) Family history of colonic polyps Family history of colon cancer Migraines Chest pain Arthritis Back pain Hx of constipation Hx of iron deficiency anemia Low blood pressure Family History Family History Brother Colon cancer Sister Colon polyps Breast cancer Sister Breast cancer Surgical History Surgical History Hx of tubal ligation Hx of colonoscopy Social History Social History Household Members: None Housing: Apartment Alcohol intake: never Patient Tobacco Use Status: Never used Tobacco Smoked in Last 30 Days: No Use of substances other than those prescribed or required for medical reasons: No Advance Directives: Yes Advance Directives Information Provided: No Advance Directives on File: No Nutrition Risks: No Nutritional Risk Current occupational status: unemployed Sexual orientation: Straight/Heterosexual Gender identity: Female Meds Allergies Allergy/AdvReac Type Severity Reaction Status Date / Time No Known Allergies Allergy Verified 10/03/23 02:01 Active Medications: Current Medications Acetaminophen (Acetaminophen 325 Mg Tablet) 650 mg PO Q6H PRN PRN Reason: Pain, Mild (Pain Scale 1-3) Enoxaparin Sodium (Enoxaparin Sodium 40 Mg/0.4 Ml Syringe) 40 mg SUBCUT Q24H MAICOL Last Admin: 10/03/23 05:45 Dose: 40 mg Melatonin (Melatonin 3 Mg Tablet) 6 mg PO BEDTIME PRN PRN Reason: Insomnia Ondansetron HCl (Ondansetron Hcl 4 Mg/2 Ml Vial) 4 mg IVPUSH Q8H PRN PRN Reason: Nausea and Vomiting Sodium Chloride (0.9 % Sodium Chloride Flush 3 Ml Syringe) 3 ml IVFLUSH QSHIFT MAICOL Last Admin: 10/03/23 09:03 Dose: 3 ml Home Medications ?Medication ?Instructions ?Recorded ?Confirmed ?Last Taken ?Type cholecalciferol (vitamin D3) 25 1 tab PO DAILY 04/28/20 04/28/20 Unknown History mcg (1,000 unit) tablet Physical Exam 2 Vital Signs: Vital Signs: Last Vital Signs Temp 97.8 F 10/03/23 05:04 Pulse 59 10/03/23 05:04 Resp 16 10/03/23 05:04 BP 100/47 L 10/03/23 05:04 Pulse Ox 97 10/03/23 05:04 O2 Del Method Room Air 10/03/23 05:04 BMI result Body Mass Index 18.0 Neuro: Other: She is alert and awake with normal spontaneity of speech fluency comprehension and somewhat flat affect. Face is symmetrical. Visual campos are full. There is no focal arm or leg weakness those he is slow to move but able to move all 4 extremities without difficulty. Plantars are flexor. Deep tendon reflexes are trace to absent. Speech is normal. She is able to get up and walk around without difficulty. She is complaining of weakness and aching in her leg muscles. She also complained of headache. Results Labs 10/03/23 02:11 10/03/23 02:10 Labs: Short CBC 10/03/23 Range/Units 02:11 WBC 5.6 (4.8-10.8) X10*3/uL Hgb 11.1 L (12.0-16.0) g/dl Hct 35.0 L (37.0-47.0) % Plt Count 174 (160-400) X10*3/uL BMP 10/03/23 02:10 Sodium 140 Potassium 4.0 Chloride 108 Carbon Dioxide 25 BUN 17 H Creatinine 0.85 Calcium 9.2 Cardiac Enzymes 10/03/23 Range/Units 02:10 Total Creatine Kinase 117 (26-140) U/L Liver Function 10/03/23 Range/Units 02:10 Total Bilirubin 0.4 (0.0-1.0) mg/dL Direct Bilirubin 0.2 (0.0-0.5) mg/dL AST 21 (5-31) U/L ALT 20 (0-31) U/L Alkaline Phosphatase 74 (39-117) U/L Albumin 4.2 (3.5-5.0) g/dL Urine 10/03/23 Range/Units 05:37 Urine Color Yellow Urine Appearance Clear Urine pH 6.5 (5.0-9.0) Ur Specific Jonancy <= 1.005 (1.005-1.025) Urine Protein Negative (Neg-Trace) mg/dL Urine Glucose (UA) Negative (Negative) mg/dL Assessment and Plan (1) Acute encephalopathy: Status: Acute Unclear etiology of her symptoms and differential diagnosis might include viral syndrome, for atypical migraine, or psychological disease. A neuromuscular disorder would not explain confusion. Similarly, seizure disorder would not explain pain. In any case, her workup so far has been negative. I recommend obtaining an EEG. Procedures Date of Service Date of Service: 10/03/23
--- NOTE | 2023-10-03 09:29 | PC.NURSE ---
Pt is alert/oriented. Wolof speaking. MRI screening form completed with icu staff nurse and faxed to MRI. Pt ambulatory with tech to bathroom, steady on feet.
--- NOTE | 2023-10-03 10:02 | PC.NURSE ---
Pt taken to MRI.
--- NOTE | 2023-10-03 11:11 | MHC.CM.PN ---
Attempted to meet with patient in regards to discharge planning. Patient currently not in room. No family present. Will attempt to meet again. Continue to monitor for d/c needs.
--- NOTE | 2023-10-03 11:36 | PHA.MEDREC ---
Pharmacy Consult ? Medication Reconciliation Pharmacy has completed the medication reconciliation.
--- NOTE | 2023-10-03 13:16 | PM.EVENT ---
Event Note Date of Service: 10/03/23 Event Note: This is a 58-year-old female with pertinent history of iron deficiency anemia who was brought to the emergency department for evaluation of confusion and weakness. Acute encephalopathy with weakness ?ataxia admitted for obs MRI r/o acute stroke EEG pending Seen by neurology> Get EEG, no acute abnormalities on MRI Anxiety reports high anxiety at times psychiatric consult for referrals or medication initiation Iron-deficiency anemia Not on iron supplementation due to constipation DVT prophylaxis: Karri Attending Dr. Kaur Full code Time Spent With Patient Time: Total time managing care of this patient today ____ minutes.
[2023-10-03 13:26] VITALS: BP 114/73; PULSE 53; RESP 16; O2SAT 99
--- NOTE | 2023-10-03 13:27 | PC.NURSE ---
Pt returns to room from MRI and EEG, alert and oriented, asking for food/coffee, encouraged to await results for further dispo at this time. Neuros are intact at this time, speech is clear and VSS. NSR on monitor, Skin PWD.
--- NOTE | 2023-10-03 13:41 | PC.NURSE ---
Pharmacy contacted for med rec.
--- NOTE | 2023-10-03 16:30 | PC.NURSE ---
Report called to overflow SAMSON Bardales.
--- NOTE | 2023-10-03 17:09 | PC.NURSE ---
Assumed care of patient at this time, called kitchen to have dinner delivered to overflow, patient reports no pain/further needs at this time.
[2023-10-03 20:00] VITALS: BP 122/56; PULSE 61; RESP 16; TEMP 36.4; O2SAT 97
[2023-10-03] MEDS: Acetaminophen 325 MG TABLET 650 MG PO (20:10)
[2023-10-03 21:59] VITALS: BMI 17.0
[2023-10-03 23:34] VITALS: BP 115/55; PULSE 51; RESP 16; TEMP 36; O2SAT 98
[2023-10-04 03:34] VITALS: BP 113/60; PULSE 53; RESP 16; TEMP 36; O2SAT 94
--- NOTE | 2023-10-04 04:37 | PC.NURSE ---
around 0315, pt's HR dropped down to 42, and then stayed in the 40's ranging from 42-49, when aroused pt's HR went above 50 and all other vitals were stable. Dr. Manpreet rowell.
[2023-10-04] MEDS: Enoxaparin Sodium 40 MG/0.4 ML SYRINGE SUBCUT (05:22)
[2023-10-04 07:01] LABS: MANUAL DIFF FLAG NO
[2023-10-04 07:06] LABS: Basophils Percent Auto 0.7 % (0-2); Eosinophils Absolute Auto 0.4 X10*3/uL (0.0-0.4); Eosinophils Percent Auto 8.8 % (0-4); Hematocrit 34.9 % (37.0-47.0); Hemoglobin 11.2 g/dl (12.0-16.0); Lymphocytes Absolute Auto 1.6 X10*3/uL (1.2-4.9); Lymphocytes Percent Auto 38.8 % (20-40); Mean Corpuscular HGB Conc 32.1 g/dl (31.0-35.0); Mean Corpuscular Hemoglobin 26.5 pg (27.0-33.0); Mean Corpuscular Volume 82.5 fL (80.0-98.0); Mean Platelet Volume 10.1 fL (9.4-12.3); Monocytes Absolute Auto 0.3 X10*3/uL (0.1-1.2); Monocytes Percent Auto 6.4 % (2-11); Neutrophils Absolute Auto 1.9 x10*3/uL (2.0-8.3); Neutrophils Percent Auto 45.3 % (45-73); Platelet Count 172 X10*3/uL (160-400); Red Blood Count 4.23 X10*6/uL (4.20-5.50); Red Cell Distribution Width 12.8 % (11.0-16.0); White Blood Count 4.2 X10*3/uL (4.8-10.8)
[2023-10-04 07:21] LABS: Anion Gap 11 (12-20); Blood Urea Nitrogen 16 mg/dL (9-16); Calcium 9.3 mg/dL (8.4-10.2); Carbon Dioxide 26 mmol/L (22-29); Chloride 108 mmol/L (96-108); Estimated Glomerular Filt Rate > 60; Glucose Random 88 mg/dL (60-115); Potassium 4.1 mmol/L (3.3-5.1); Sodium 141 mmol/L (135-145)
[2023-10-04 07:53] VITALS: BP 93/48; RESP 14; TEMP 36.3; O2SAT 100
[2023-10-04] MEDS: 0.9 % Sodium Chloride Flush 3 ML SYRINGE IVFLUSH (09:14)
--- NOTE | 2023-10-04 10:56 | HE.CSO ---
pt lives alone is independent and working has own ride home
[2023-10-04 11:17] VITALS: BMI 17.0
--- NOTE | 2023-10-04 11:18 | P.CNPS_ITS ---
History of Present Illness Date of Service: 10/06/2023 Chief Complaint: altered mentation Reason for Consult: anxiety Requesting physician: Natasha Connelly Discussed with referring provider: Yes Sources of Information: patient interviewed and chart reviewed HPI Narrative: pt seen with hospital approved babcock tester. 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 Review of Systems Review of Systems As per HPI Constitutional: Reports weakness Cardiovascular: Reports no additional cardiovascular complaints Respiratory: Reports no additional respiratory complaints Gastrointestinal: Reports no additional gastrointestinal complaints Reports confusion and Reports weakness Psychiatric: Reports confusion [facility] Medical History Atypical squamous cells cannot exclude high grade squamous intraepithelial lesion on cytologic smear of cervix (ASC-H) Family history of colonic polyps Family history of colon cancer Migraines Chest pain Arthritis Back pain Hx of constipation Hx of iron deficiency anemia Low blood pressure Surgical History Hx of tubal ligation Hx of colonoscopy Diagnostics Vital Signs (24Hr): Vital Signs - 24 hr 10/03/23 13:26 10/03/23 20:00 10/03/23 23:34 Temperature 97.6 F 96.8 F Pulse Rate 53 61 51 Respiratory Rate 16 16 16 Blood Pressure 114/73 122/56 L 115/55 L Pulse Oximetry 99 97 98 Oxygen Delivery Method Room Air Room Air Room Air 10/04/23 03:34 10/04/23 07:53 Temperature 96.8 F 97.4 F Pulse Rate 53 Respiratory Rate 16 14 Blood Pressure 113/60 93/48 L Pulse Oximetry 94 100 Oxygen Delivery Method Room Air Room Air BMI result Body Mass Index 17.0 Labs 10/04/23 05:37 10/04/23 05:37 Labs: Laboratory Results - last 48 hr 10/03/23 10/03/23 10/03/23 02:09 02:10 02:11 WBC 5.6 RBC 4.21 Hgb 11.1 L Hct 35.0 L MCV 83.1 MCH 26.4 L MCHC 31.7 RDW 12.9 Plt Count 174 MPV 9.5 Immature Gran % (Auto) 0.2 Neut % (Auto) 49.3 Lymph % (Auto) 35.8 Bell % (Auto) 6.0 Eos % (Auto) 8.0 H Baso % (Auto) 0.7 Lymph # (Auto) 2.0 Bell # (Auto) 0.3 Eos # (Auto) 0.5 H Baso # (Auto) 0.0 Abs Immat Gran (auto) 0.01 Absolute Neuts (auto) 2.8 Absolute Nucleated RBC 0.000 Nucleated RBC % (auto) 0.0 PT 12.5 INR 1.0 VBG pH VBG pCO2 VBG pO2 VBG HCO3 VBG O2 Saturation VBG Base Excess Sodium 140 Potassium 4.0 Chloride 108 Carbon Dioxide 25 Anion Gap 11 L BUN 17 H Creatinine 0.85 Estim Creat Clear Calc 62.1 Estimated GFR > 60 Random Glucose 121 H Lactic Acid 0.9 Calcium 9.2 Magnesium 1.9 Total Bilirubin 0.4 Direct Bilirubin 0.2 AST 21 ALT 20 Alkaline Phosphatase 74 Ammonia 19 Total Creatine Kinase 117 Troponin I High Sens < 2.7 B-Natriuretic Peptide 51 Total Protein 7.0 Albumin 4.2 Lipase 30 Vitamin B12 435 Folate 8.5 TSH 2.82 Urine Color Urine Appearance Urine pH Ur Specific [place] Urine Protein Urine Glucose (UA) Urine Ketones Urine Blood Urine Nitrite Ur Leukocyte Esterase Urine RBC Urine WBC Ur Squamous Epith Cells Urine Bacteria Hyaline Casts Salicylates < 5.0 L Urine Opiates Screen Ur Buprenorphine Scrn Ur Oxycodone Screen Urine Methadone Screen Urine Fentanyl Screen Ur Barbiturates Screen Ur Phencyclidine Scrn Ur Amphetamines Screen U Benzodiazepines Scrn Urine Cocaine Screen U Marijuana (THC) Screen Ethyl Alcohol < 10 Influenza Type A (PCR) NEGATIVE Influenza Type B (PCR) NEGATIVE RSV RNA Qual (PCR) NEGATIVE SARS-CoV-2 RNA (RT-PCR) NEGATIVE 10/03/23 10/03/23 10/03/23 02:16 05:08 05:37 WBC RBC Hgb Hct MCV MCH MCHC RDW Plt Count MPV Immature Gran % (Auto) Neut % (Auto) Lymph % (Auto) Bell % (Auto) Eos % (Auto) Baso % (Auto) Lymph # (Auto) Bell # (Auto) Eos # (Auto) Baso # (Auto) Abs Immat Gran (auto) Absolute Neuts (auto) Absolute Nucleated RBC Nucleated RBC % (auto) PT INR VBG pH 7.33 VBG pCO2 49 VBG pO2 37 VBG HCO3 26 VBG O2 Saturation 58.0 VBG Base Excess 0.1 Sodium Potassium Chloride Carbon Dioxide Anion Gap BUN Creatinine Estim Creat Clear Calc Estimated GFR Random Glucose Lactic Acid Calcium Magnesium Total Bilirubin Direct Bilirubin AST ALT Alkaline Phosphatase Ammonia Total Creatine Kinase Troponin I High Sens < 2.7 B-Natriuretic Peptide Total Protein Albumin Lipase Vitamin B12 Folate TSH Urine Color Yellow Urine Appearance Clear Urine pH 6.5 Ur Specific [place] <= 1.005 Urine Protein Negative Urine Glucose (UA) Negative Urine Ketones Negative Urine Blood Negative Urine Nitrite Negative Ur Leukocyte Esterase Small (1+) H Urine RBC 0-2 Urine WBC 0-5 Ur Squamous Epith Cells 0-2 Urine Bacteria None Seen Hyaline Casts 0-2 Salicylates Urine Opiates Screen Not Detected Ur Buprenorphine Scrn Not Detected Ur Oxycodone Screen Not Detected Urine Methadone Screen Not Detected Urine Fentanyl Screen Not Detected Ur Barbiturates Screen Not Detected Ur Phencyclidine Scrn Not Detected Ur Amphetamines Screen Not Detected U Benzodiazepines Scrn Not Detected Urine Cocaine Screen Not Detected U Marijuana (THC) Screen Not Detected Ethyl Alcohol Influenza Type A (PCR) Influenza Type B (PCR) RSV RNA Qual (PCR) SARS-CoV-2 RNA (RT-PCR) 10/04/23 05:37 WBC 4.2 L RBC 4.23 Hgb 11.2 L Hct 34.9 L MCV 82.5 MCH 26.5 L MCHC 32.1 RDW 12.8 Plt Count 172 MPV 10.1 Immature Gran % (Auto) 0.0 Neut % (Auto) 45.3 Lymph % (Auto) 38.8 Bell % (Auto) 6.4 Eos % (Auto) 8.8 H Baso % (Auto) 0.7 Lymph # (Auto) 1.6 Bell # (Auto) 0.3 Eos # (Auto) 0.4 Baso # (Auto) 0.0 Abs Immat Gran (auto) 0.00 Absolute Neuts (auto) 1.9 L Absolute Nucleated RBC 0.000 Nucleated RBC % (auto) 0.0 PT INR VBG pH VBG pCO2 VBG pO2 VBG HCO3 VBG O2 Saturation VBG Base Excess Sodium 141 Potassium 4.1 Chloride 108 Carbon Dioxide 26 Anion Gap 11 L BUN 16 Creatinine 0.79 Estim Creat Clear Calc 63.0 Estimated GFR > 60 Random Glucose 88 Lactic Acid Calcium 9.3 Magnesium Total Bilirubin Direct Bilirubin AST ALT Alkaline Phosphatase Ammonia Total Creatine Kinase Troponin I High Sens B-Natriuretic Peptide Total Protein Albumin Lipase Vitamin B12 Folate TSH Urine Color Urine Appearance Urine pH Ur Specific [place] Urine Protein Urine Glucose (UA) Urine Ketones Urine Blood Urine Nitrite Ur Leukocyte Esterase Urine RBC Urine WBC Ur Squamous Epith Cells Urine Bacteria Hyaline Casts Salicylates Urine Opiates Screen Ur Buprenorphine Scrn Ur Oxycodone Screen Urine Methadone Screen Urine Fentanyl Screen Ur Barbiturates Screen Ur Phencyclidine Scrn Ur Amphetamines Screen U Benzodiazepines Scrn Urine Cocaine Screen U Marijuana (THC) Screen Ethyl Alcohol Influenza Type A (PCR) Influenza Type B (PCR) RSV RNA Qual (PCR) SARS-CoV-2 RNA (RT-PCR) Imaging Radiology Impressions: ITS Impressions Chest X-Ray 10/03/23 02:20 IMPRESSION: No acute cardiopulmonary process. Head CT 10/03/23 02:55 IMPRESSION: No acute intracranial abnormality. Ethmoid sinus opacities of uncertain significance. Brain MRI 10/03/23 11:41 IMPRESSION: Trace subacute subdural hematoma along the lateral aspect of the left posterior fossa that does not result in significant mass effect. Artifact versus a punctate acute lacunar infarct within the left dorsal lawrence. No mass effect. Mental Status Exam Mental Status Exam Patient Appearance: Well Grooomed and Appropriate Patient Orientation: Person, Place, Time and Situation Level of Consciousness: Awake Patient Behavior: Appropriate Mood Description: Anxious and Apprehensive Affect Description: Anxious and Apprehensive Patient Cognition Impaired: No Ability to Follow Directions: Good Speech Pattern: Clear Memory Description: Intact Hallucinations: None Thought Process: Intact Thought Content: positive for Intact Judgement: Good Medications Medications Current Medications Acetaminophen (Acetaminophen 325 Mg Tablet) 650 mg PO Q6H PRN PRN Reason: Pain, Mild (Pain Scale 1-3) Last Admin: 10/03/23 20:10 Dose: 650 mg Enoxaparin Sodium (Enoxaparin Sodium 40 Mg/0.4 Ml Syringe) 40 mg SUBCUT Q24H [facility] Last Admin: 10/04/23 05:22 Dose: 40 mg Melatonin (Melatonin 3 Mg Tablet) 6 mg PO BEDTIME PRN PRN Reason: Insomnia Ondansetron HCl (Ondansetron Hcl 4 Mg/2 Ml Vial) 4 mg IVPUSH Q8H PRN PRN Reason: Nausea and Vomiting Sodium Chloride (0.9 % Sodium Chloride Flush 3 Ml Syringe) 3 ml IVFLUSH QSHIFT [facility] Last Admin: 10/04/23 09:14 Dose: 3 ml Allergies Allergies Allergy/AdvReac Type Severity Reaction Status Date / Time No Known Allergies Allergy Verified 10/03/23 02:01 Assessment & Plan Assessment & Plan (1) Acute encephalopathy: Status: Acute Code(s): G93.40 - Encephalopathy, unspecified (2) Anxiety about health: Status: Acute Code(s): R45.89 - Other symptoms and signs involving emotional state Plan PSYCHaITRY: Reported high anxiety at times. , patient did not want medications or referrals for home. Patient aware if symptoms worsen, she should follow-up with primary care provider to get referrals for therapist Total time managing care of this patient today __30__ minutes. Patient educated on: diagnosis and therapeutic strategies Informed Consent: understands
[2023-10-04 12:00] VITALS: BP 104/50; PULSE 62; RESP 14; TEMP 36.1; O2SAT 100
--- NOTE | 2023-10-04 13:02 | P.DS_ITS ---
DS: Providers Provider Date of Service: 10/04/23 Date of admission: 10/03/23 05:20 Primary care physician: Liliana Wise NP Consults: 10/03/23 05:20 Consult to Neurology Routine Consulting Provider: [facility] Reason for consultation: acute encephalopathy 10/03/23 15:59 Consult to Psychiatry Routine Consulting Provider: Psych Covering Reason for consultation: severe anxiety DS: Diagnosis Discharge Diagnosis (1) Acute encephalopathy: Status: Acute DS: Summary Hospital Course Hospital Course: History and physical as per admitting provider. This is a 58-year-old female with pertinent history of iron deficiency anemia who was brought to the emergency department for evaluation of confusion and weakness. History was obtained with the help of core stacker and granddaughter at bedside. As per the granddaughter, patient was in normal health and she went to bed at 22:00 yesterday. Patient woke up around 01:00 saying she did not feel well. Patient stated that she was having weakness and felt she could not walk. Patient felt she would fall to 1 side if you would walk. The granddaughter also stated that patient seemed confused which is unusual for her. Patient was staring off in space intermittently. No history of CVA or seizures. No jerking movement of extremities. No tongue bite or urinary or bowel incontinence. No cough, fever, chills, nausea, vomiting, abdominal pain, changes in urinary or bowel habits. 58-year-old woman treated for acute encephalopathy with weakness. MRI ruled out acute stroke, EEG negative for seizure disorder. Seen evaluated by Neurology who suggested some differential diagnosis includes viral syndrome, atypical migraine or psychological issue. Patient was noted to have group B strep UTI, therefore possible infection related. Will treat with amoxicillin for 5 days outpatient. Patient is alert and oriented x3, plan to discharge patient home, patient in agreement Anxiety. Reported high anxiety at times. Psychiatric consultation, patient did not want medications or referrals for home. Patient aware if symptoms worsen, she should follow-up with primary care provider to get referrals for therapist Iron-deficiency anemia. Not on iron supplementation due to constipation Time Attestation Discharge Coordination Time (in mins): 35 Quality: Safe Use of Opioids Does Pt have an Active Cancer Diagnosis on the Problem List?: No Quality: Stroke Does the patient have a stroke diagnosis?: No Physical Exam Vital Signs: Vital Signs: Last Vital Signs Temp 96.9 F 10/04/23 12:00 Pulse 62 10/04/23 12:00 Resp 14 10/04/23 12:00 BP 104/50 L 10/04/23 12:00 Pulse Ox 100 10/04/23 12:00 O2 Del Method Room Air 10/04/23 12:00 BMI result Body Mass Index 17.0 Appearing in no acute distress head is normocephalic atraumatic eyes pupils are PERRLA sclera is anicteric mouth throat mucous membranes are intact and moist neck is supple no lymphadenopathy, no JVD noted lung sounds are clear to auscultation heart regular rate rhythm, clear S1, S2 positive bowel sounds, abdomen is soft, nontender neuro patient is alert x3, no focal deficits DS: Data Data Completed and Pending Labs on day of discharge: Laboratory Results - last 24 hr 10/04/23 05:37 WBC 4.2 L RBC 4.23 Hgb 11.2 L Hct 34.9 L MCV 82.5 MCH 26.5 L MCHC 32.1 RDW 12.8 Plt Count 172 MPV 10.1 Immature Gran % (Auto) 0.0 Neut % (Auto) 45.3 Lymph % (Auto) 38.8 Mills % (Auto) 6.4 Eos % (Auto) 8.8 H Baso % (Auto) 0.7 Lymph # (Auto) 1.6 Mills # (Auto) 0.3 Eos # (Auto) 0.4 Baso # (Auto) 0.0 Abs Immat Gran (auto) 0.00 Absolute Neuts (auto) 1.9 L Absolute Nucleated RBC 0.000 Nucleated RBC % (auto) 0.0 Sodium 141 Potassium 4.1 Chloride 108 Carbon Dioxide 26 Anion Gap 11 L BUN 16 Creatinine 0.79 Estim Creat Clear Calc 63.0 Estimated GFR > 60 Random Glucose 88 Calcium 9.3 Preliminary micro results at discharge 10/03/23 02:08 Blood Culture - Preliminary Blood - Venous No growth after 24 hours. 10/03/23 02:08 Blood Culture - Preliminary Blood - Venous No growth after 24 hours. 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 [Primary Care Provider] - 1 Week Discharge Medications: New amoxicillin 500 mg tablet 500 mg PO Q8H Qty: 15 0RF Continued cholecalciferol (vitamin D3) 25 mcg (1,000 unit) tablet 1 tab PO DAILY Discharge Orders: Discharge Order (Routine); Ordered 10/04/23 Ordered By: Natasha Connelly Diet: Advance to usual diet Activity on Discharge: As tolerated Stand Alone Forms: Patient Portal Discharge page Print Language: Romanian Care Plan Goals: Complete antibiotic course for UTI Health Concerns: Group B strep UTI Acute encephalopathy with weakness Anxiety Plan of Treatment: Follow-up with primary care provider as needed Take all medications as prescribed Assessment: See discharge summary
--- NOTE | 2023-10-04 15:29 | MHC.CM.PN ---
pt dcd self care
== END 2023-10-04 16:46 | disposition home or self-care (01) ==
LOC: HO.ED 04:57 → HO.EDOVER 05:27 → HO.S3 18:02
PROVIDERS: Admitting Provider Student in an Organized Health Care Education/Training Program; Emergency Provider Emergency Medicine; PCP Nurse Practitioner Primary Care; Visit Provider Nurse Practitioner Acute Care
DX: N39.0 Urinary tract infection, site not specified (principal); B95.1 Streptococcus, group B, as the cause of diseases classified elsewhere; G93.40 Encephalopathy, unspecified; F41.9 Anxiety disorder, unspecified; R53.1 Weakness; R45.89 Other symptoms and signs involving emotional state; D50.9 Iron deficiency anemia, unspecified; R41.0 Disorientation, unspecified
CPT/HCPCS: 0241U; 36415; 70450; 70551; 71045; 80048; 80076; 80179; 80307; 81001; 82140; 82550; 82607; 82746; 82803; 83605; 83690; 83735; 83880; 84443; 84484; 85025; 85610; 87040; 87086; 87147; 93005; 95816; 96360; 96361; 96372; 99221; 99285; J1650

== ENCOUNTER → 2023-10-03 02:01 | Outpatient (BNV) | payer OTHER, SELFPAY | PROVIDERS: Admitting Provider Student in an Organized Health Care Education/Training Program; Emergency Provider Emergency Medicine; Visit Provider Internal Medicine | DX: R53.1 Weakness (principal) | CPT/HCPCS: 93010 ==

== ENCOUNTER → 2023-10-03 05:20 | Outpatient (BNV) | payer OTHER, SELFPAY | PROVIDERS: Admitting Provider Student in an Organized Health Care Education/Training Program; Emergency Provider Emergency Medicine; Visit Provider Psychiatry & Neurology Neurology | DX: G93.40 Encephalopathy, unspecified (principal) | CPT/HCPCS: 99222 ==

== ENCOUNTER → 2023-10-03 05:20 | Outpatient (BNV) | payer OTHER, SELFPAY | PROVIDERS: Admitting Provider Student in an Organized Health Care Education/Training Program; Emergency Provider Emergency Medicine; Visit Provider Student in an Organized Health Care Education/Training Program | DX: G93.40 Encephalopathy, unspecified (principal) | CPT/HCPCS: 99222; 99239; 99499 ==

== ENCOUNTER → 2023-10-03 05:20 | Outpatient (BNV) | payer OTHER, SELFPAY | PROVIDERS: Admitting Provider Student in an Organized Health Care Education/Training Program; Emergency Provider Emergency Medicine; PCP Nurse Practitioner Primary Care; Visit Provider Clinical Nurse Specialist Psychiatric/Mental Health | DX: G93.40 Encephalopathy, unspecified (principal); R45.89 Other symptoms and signs involving emotional state | CPT/HCPCS: 99231 ==

== ENCOUNTER 2023-11-01 13:13 | Outpatient (REF) | payer OTHER, SELFPAY | END 2023-11-01 13:14 | disposition home or self-care (01) | LOC: HO.MAMMO 13:13 | PROVIDERS: PCP Nurse Practitioner Primary Care; Visit Provider Nurse Practitioner Primary Care | DX: Z12.31 Encounter for screening mammogram for malignant neoplasm of breast (principal) | CPT/HCPCS: 77063; 77067 ==

== ENCOUNTER → 2023-11-01 13:15 | Outpatient (BNV) | payer OTHER, SELFPAY | PROVIDERS: PCP Nurse Practitioner Primary Care; Visit Provider Radiology Diagnostic Radiology | DX: Z12.31 Encounter for screening mammogram for malignant neoplasm of breast (principal) | CPT/HCPCS: 77063; 77067 ==

== ENCOUNTER 2024-01-05 10:08 | Outpatient (AMB) | payer OTHER, SELFPAY ==
--- OUTSIDE RECORDS SUMMARY | 2024-01-05 10:10 | XMS_ITS | Continuity of Care Document ---
Author Organization [facility] Address [address], [address], [address] [place] [id number]- Care Team Providers Care Global Position System Technician Name Role Phone Carson MORELOS, Kyra Campbell Primary Care Physician Encounter [facility] [place] Date(s): 08/17/19 - 08/27/19 [facility] [address], [address], [address] [place] [id number]- [facility] Attending Physician: Admbenjamin, Marquis8 Admitting Physician: Admtr, Mina Referring Physician: Admtr, Ar8 Allergies, Adverse Reactions, Alerts Substance Reaction Severity Status NKA Active Medications SUMAtriptan 50 mg oral tablet 1 tablet = 50 mg, By Mouth, Daily, PRN for migraine headache, may repeat dose after 2 hours up to amaximum of 2, # 9 tablet, 2 Refills, Acute 06/04/20 11:32:00 EST, 06/04/19 11:32:00 EST, Tablet, [id number] Start Date: 06/04/19 Stop Date: 06/04/20 Status: Ordered topiramate 25 mg oral tablet 3 tablet = 75 mg, By Mouth, Daily at bedtime, # 90 tablet, 5 Refills, Maintenance, 06/04/19 11:30:00 EST, Tablet, [id number] Start Date: 06/04/19 Stop Date: 12/01/19 Status: Ordered Problem List Condition Effective Dates Status Health Status Inform ant Anemia(Confirmed) Active Family history of breast can cer in first degree relative(Confirmed) 12/29/11 Active Urinary frequency(Confirmed) Active Social History Social History Type Response Smoking Status Never smoker entered on: 02/14/15 Sex
--- OUTSIDE RECORDS SUMMARY | 2024-01-05 10:10 | XMS_ITS | Continuity of Care Document ---
Author Organization [facility] Address [address] [facility], [address] Floor, [address] [place] [id number]- Care Team Providers Care Personnel Coordinator Name Role Phone Carson MORELOS, Kyra Campbell Primary Care Physician [place] [facility] [place] Date(s): 06/04/19 - 06/14/19 [facility] [address], [address], [address] [place] [id number]- [facility] Attending Physician: Admbenjamin, Ar8 Admitting Physician: Admtr, ArTrixie Referring Physician: Admtr, Ar8 Allergies, Adverse Reactions, [...]
--- OUTSIDE RECORDS SUMMARY | 2024-01-05 10:10 | XMS_ITS | Continuity of Care Document ---
Author Organization [facility] Address [address] [facility], [address], [address] [place] [address]- Care Team Providers Care Visual Merchandising Associate Name Role Phone Carson MORELOS, Kyra Campbell Primary Care Physician Encounter [facility] [place] Date(s): 06/04/19 - 09/16/19 [facility] [address], [address], [address] [place] [id number] [facility] Attending Physician: Scarlet Pisano MD Admitting Physician: Scarlet Pisano MD Allergies, Adverse Reactions, Alerts Substance Reaction Severity [...] Refills, Maintenance, 06/04/19 11:30:00 EST, Tablet, [id number] Start Date: 06/04/19 Stop Date: 12/01/19 Status: Ordered Problem List Condition Effective Dates Status Health Status Inform ant Anemia(Confirmed) Active Family history of breast can cer in first degree relative(Confirmed) 12/29/11 Active Urinary frequency(Confirmed) Active Social History Social History Type Response Smoking Status Never smoker entered on: 02/14/15 Sex
[2024-01-05 10:31] VITALS: BP 102/60; BMI 16.8
--- NOTE | 2024-01-05 10:31 | MHC.OFFVIS ---
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 Complaining of urinary frequency, nocturia and urge incontinence Last Pap/HPV was negative in 08/26 Last Mammogram was BI-RADS 1 in 10/27 Last Colonoscopy was done 04/25, the recommendation was to repeat in 5 years [facility] Medical History Atypical squamous cells cannot exclude high grade squamous intraepithelial lesion on cytologic smear of cervix (ASC-H) Family history of colonic polyps Family history of colon cancer Migraines Chest pain Arthritis Back pain Hx of constipation Hx of iron deficiency anemia Low blood pressure Surgical History Hx of tubal ligation Hx of colonoscopy Family History Brother Colon cancer Sister Colon polyps Breast cancer Sister Breast cancer Social History Household Members: None Housing: Apartment Alcohol intake: never Patient Tobacco Use Status: Never used Tobacco service: No Current occupational status: unemployed Sexual orientation: Straight/Heterosexual Gender identity: Female Female Reproductive History Menstrual Age of Menarche: 13 control method: permanent sterilization Menopause type: natural Total pregnancies: 3 Full term: 3 Number of Living Children: 3 Date of last pap smear: 09/28/22 Date of Mammogram: 11/01/23 Review of Systems Const All systems reviewed & are unremarkable except as noted in HPI and below Card Reports as per HPI Resp Reports as per HPI GI Reports as per HPI and Reports no additional complaints Reports as per HPI Physical Exam Vital Signs: Last Vital Signs BP 102/60 01/05/24 10:31 BMI result Body Mass Index 16.8 Const General: cooperative, healthy appearing and comfortable Chest Chest palpation & inspection: normal inspection of the chest and normal palpation of entire chest wall Breast/axilla inspection: normal inspection of the breasts and normal inspection of the axillae Breast/axilla palpation: normal palpation of the breasts, normal palpation of the axillae and no axillary lymphadenopathy Resp Effort & Inspection: normal respiratory effort Auscultation: clear to auscultation bilaterally Percussion: percussion normal Cardio Palpation: normal PMI Rate: regular rate Rhythm: regular rhythm Heart sounds: no murmurs and no rubs Peripheral pulses: Peripheral pulses 2+ throughout GI Inspection: Yes normal to inspection Palpation (GI): Soft to palpation, nontender, no guarding, not rigid and No hepatosplenomegaly present Percussion: Yes normal to percussion Auscultation: normal bowel sounds Rectal Exam - Female: deferred General: Yes bladder normal to palpation External Female Exam: No lesion Speculum Exam - Vagina: normal appearance of the vagina, normal palpation, normal vaginal discharge and not erythematous Speculum Exam - Cervix: normal appearance of the cervix and normal palpation Bimanual exam- vagina & uterus: normal bimanual exam, normal palpation, uterine size normal, bladder normal to palpation, consistency normal and normal palpation Bimanual Exam- Adnexa, other: normal adnexae, no masses and no tenderness Assessment & Plan Assessment & Plan (1) Well woman exam: Code(s): Z01.419 - Encounter for gynecological examination (general) (routine) without abnormal findings Category: Medical Plan: Cotesting not indicated this year. Instructions given to patient to schedule next screening Mammogram in 10/28. Counseled the patient about the recommended dietary allowance of 1000 mg of Calcium & 600 IU of vitamin D. The patient was instructed to perform monthly self-breast exams and to schedule an annual exam in a year; All questions answered and the patient verbalized understanding. Instructed the patient to schedule annual exam in a year (2) Urge incontinence: Comment: With urinary frequency/nocturia Code(s): N39.41 - Urge incontinence Category: Medical Plan: Discussed with the patient the different types of Urine incontinence, stress urinary incontinence, intrinsic sphincter deficiency, overactive bladder and its work up. We will refer to Urology. All questions answered, the patient verbalized understanding. Orders: Referrals Urology Referral N39.41 - Urge incontinence Coding Level of Care Code Est Pt Prev Care 40-64y(58873) Diagnoses Well woman exam Z01.419 Urge incontinence N39.41
== END 2024-01-05 11:10 | disposition home or self-care (01) ==
LOC: HO.HWS 10:08
PROVIDERS: PCP Nurse Practitioner Primary Care; Visit Provider Obstetrics & Gynecology
DX: Z01.419 Encounter for gynecological examination (general) (routine) without abnormal findings (principal); N39.41 Urge incontinence
CPT/HCPCS: 99396

== ENCOUNTER → 2024-01-05 10:08 | Outpatient (BNVA) | payer OTHER, SELFPAY | PROVIDERS: PCP Nurse Practitioner Primary Care; Visit Provider Obstetrics & Gynecology | DX: Z01.419 Encounter for gynecological examination (general) (routine) without abnormal findings (principal); N39.41 Urge incontinence | CPT/HCPCS: 99396 ==

== ENCOUNTER 2024-01-31 13:43 | Outpatient (REF) | payer OTHER, SELFPAY ==
[2024-01-31 16:18] LABS: MANUAL DIFF FLAG NO
[2024-01-31 16:23] LABS: Basophils Percent Auto 0.6 % (0-2); Eosinophils Absolute Auto 0.3 X10*3/uL (0.0-0.4); Eosinophils Percent Auto 6.6 % (0-4); Hematocrit 35.1 % (37.0-47.0); Hemoglobin 11.4 g/dl (12.0-16.0); Lymphocytes Absolute Auto 1.5 X10*3/uL (1.2-4.9); Lymphocytes Percent Auto 28.6 % (20-40); Mean Corpuscular HGB Conc 32.5 g/dl (31.0-35.0); Mean Corpuscular Volume 83.2 fL (80.0-98.0); Mean Platelet Volume 10.1 fL (9.4-12.3); Monocytes Absolute Auto 0.3 X10*3/uL (0.1-1.2); Monocytes Percent Auto 5.6 % (2-11); Neutrophils Percent Auto 58.6 % (45-73); Platelet Count 200 X10*3/uL (160-400); Red Blood Count 4.22 X10*6/uL (4.20-5.50); Red Cell Distribution Width 12.9 % (11.0-16.0); White Blood Count 5.2 X10*3/uL (4.8-10.8)
[2024-01-31 20:50] LABS: Cholesterol 213 mg/dL (<200); HDL Cholesterol 92 mg/dL (>40); LDL Cholesterol Calculated 112 mg/dL (<100); Triglycerides 48 mg/dL (<150)
[2024-01-31 21:06] LABS: TSH reflex Free T4 0.78 uIU/mL (0.32-4.0)
== END 2024-01-31 13:44 | disposition home or self-care (01) ==
LOC: HO.HHCL 13:43
PROVIDERS: Visit Provider Nurse Practitioner Primary Care
DX: R63.6 Underweight (principal); E78.00 Pure hypercholesterolemia, unspecified; R53.81 Other malaise
CPT/HCPCS: 36415; 80061; 84443; 85025

== ENCOUNTER 2024-03-13 09:46 | Outpatient (AMB) | payer OTHER, SELFPAY ==
--- NOTE | 2024-03-13 10:27 | A.OFFVIS_ITS ---
Intake Visit Reasons: urinary incontinence/UTI Intake Note: New Patient Is Present for Urinary Incontinence/UTI/Frequency/Nocturia Was referred By Dr. Jerome PVR:0 Expenditure Requisition Clerk Required: Yes Expenditure Requisition Clerk Language: Sports Medicine Trainer Services: Expenditure Requisition Clerk Present Information Interpreted: clinical only Accompanied by: Self / Same As Patient Allergies No Known Allergies Allergy (Verified 01/05/24 10:47) HPI Comments Details: Brenda is a pleasant female. She is a patient of Dr. Zhou. She is seen for the following urologic conditions - current UTI - nocturia with some urge incontinence Armenian translation provided by qualified medical office scheduler Reports progressive urinary urgency Is involved with bathroom planning Has nocturia which has been bothersome No prior medications Trial oxybutynin Has had issues previously with constipation so will need secondary medication Bladder instability PVR 0 cc Obstetric history 3 pregnancies, 3 normal vaginal deliveries PFSH Medical History Atypical squamous cells cannot exclude high grade squamous intraepithelial lesion on cytologic smear of cervix (ASC-H) Family history of colonic polyps Family history of colon cancer Migraines Chest pain Arthritis Back pain Hx of constipation Hx of iron deficiency anemia Low blood pressure Surgical History Hx of tubal ligation Hx of colonoscopy Family History Brother Colon cancer Sister Colon polyps Breast cancer Sister Breast cancer Social History Household Members: None Housing: Apartment Alcohol intake: never Patient Tobacco Use Status: Never used Tobacco service: No Current occupational status: unemployed Sexual orientation: Straight/Heterosexual Gender identity: Female Female Reproductive History Menstrual Age of Menarche: 13 Review of Systems Const Denies chills and Denies fever(s) Card Reports no additional complaints and Denies syncope Resp Denies cough GI Denies abdominal pain and Denies heartburn Reports as per HPI and Denies change in libido Neuro Denies syncope Psych Denies change in libido Endo Denies change in libido Physical Exam Const General: cooperative, healthy appearing, comfortable and no acute distress Orientation/consciousness: patient oriented x3 HEENT Face and sinus: Yes normal facial exam Mouth: moist mucous membranes Neck Neck: Yes normal visual inspection, Yes full ROM and Yes trachea midline Chest Chest palpation & inspection: normal inspection of the chest Resp Effort & Inspection: normal respiratory effort, able to speak in complete sentences and no respiratory distress GI Inspection: Yes normal to inspection Back/Spine/Pelvis Cervical Spine: normal cervical lordosis Thoracic/Lumbar Spine: thoracic and lumbar spine normal to inspection Skin General skin exam: no rashes or lesions noted Neuro General: patient oriented x3, gait normal, tone normal and moves all extremities Extrem General: Yes normal to inspection and Yes capillary refill normal Office Procedures Post Void Residual Post Residual Void Post Void Residual (PVR): 0 [id number] Void Residual by ultrasound Results AMB Urinalysis, Automated UA Leukoctes 0 Selina/uL Last Edit by Trang Cornell [facility] on 03/13/24 10:41 UA Nitrite Negative Last Edit by Trang Cornell [facility] on 03/13/24 10:41 UA Urobilinogen 0.2 mg/dL Last Edit by Trang Cornell [facility] on 03/13/24 10:4 1 UA Protein 15 mg/dL Last Edit by Trang Cornell [facility] on 03/13/24 10:41 UA pH 6.0 Last Edit by Trang Cornell [facility] on 03/13/24 10:41 UA Blood 0 Thanh/uL Last Edit by Trang Cornell [facility] on 03/13/24 10:41 UA Specific [place] 1.015 Last Edit by Trang Cornell [facility] on 03/13/24 10: 41 UA Ketone Negative Last Edit by Trang Cornell [facility] on 03/13/24 10:41 UA Bilirubin 0 mg/dL Last Edit by Trang Cornell [facility] on 03/13/24 10:41 UA Glucose 0 mg/dL Last Edit by Trang Cornell [facility] on 03/13/24 10:41 Results Reviewed Results Reviewed: Laboratory Last Values Urine pH (Auto) 6.0 03/13/24 10:35 Specific [place] (Auto) 1.015 03/13/24 10:35 Urine Protein (Auto) 15 mg/dL 03/13/24 10:35 Glucose (UA)(Auto) 0 mg/dL 03/13/24 10:35 Urine Ketones (Auto) Negative 03/13/24 10:35 Urine Blood (Auto) 0 Thanh/uL 03/13/24 10:35 Urine Nitrite (Auto) Negative 03/13/24 10:35 Urine Bilirubin (Auto) 0 mg/dL 03/13/24 10:35 Urine Urobilinogen (Auto) 0.2 mg/dL 03/13/24 10:35 Leukocyte Esterase (Auto) 0 Selina/uL 03/13/24 10:35 Assessment & Plan Assessment & Plan (1) Urge incontinence: Comment: With urinary frequency/nocturia Code(s): N39.41 - Urge incontinence Category: Medical Plan Trial of oxybutynin Orders: Orders AMB Urinalysis Automated Today Z13.9 - Encounter for screening, unspecified AMB Post Void Residual by ultrasound Today N39.41 - Urge incontinence Patient Instructions: Imaging studies, laboratory and physical exam results were discussed and reviewed in detail. No major barriers to patient understanding were identified. An opportunity to ask questions regarding the treatment plan was provided. All questions were answered. The patient expressed understanding and agreement with the above treatment plan. The patient is aware they should contact our office by phone for worsening of their current condition or the appearance of new urologic symptoms. Compliance is encouraged with any medications and followup testing that is ordered. It is a privilege to participate in the urologic care of your patient. If you have any questions or concerns regarding treatment for the above conditions, or other urologic issues, please do not hesitate to contact me. The office telephone contact is [phone]. This note is constructed using voice recognition software. While every effort has been made to ensure accuracy paleology teacher errors may have been included. Yours sincerely, Dr Sandeep Russo MD, [facility] - Urology Providers of Expert, Compassionate Care for the Genitourinary System Coding Level of Care Code New Pt Level 4 (30666) Diagnoses Urge incontinence N39.41 CPT Codes Post Residual Void - PVR CPT Code: 08538-[id number] Void Residual by ultrasound ([id number])
== END 2024-03-13 10:57 | disposition home or self-care (01) ==
LOC: HO.HUSH 09:46
PROVIDERS: PCP Nurse Practitioner Primary Care; Visit Provider Urology
DX: N39.41 Urge incontinence (principal); Z13.9 Encounter for screening, unspecified
CPT/HCPCS: 99204

== ENCOUNTER → 2024-03-13 09:46 | Outpatient (BNVA) | payer OTHER, SELFPAY | PROVIDERS: PCP Nurse Practitioner Primary Care; Visit Provider Urology | DX: N39.41 Urge incontinence (principal) | CPT/HCPCS: 51798; 81003; 99202 ==

== ENCOUNTER 2024-03-30 22:07 | Emergency (ER) | payer OTHER, SELFPAY ==
--- NOTE | 2024-03-30 | ECG_ITS ---
Test Reason : L SHOULDER PAIN Blood Pressure : / mmHG Vent. Rate : 057 BPM Atrial Rate : 057 BPM P-R Int : 172 ms QRS Dur : 090 ms QT Int : 414 ms P-R-T Axes : 075 088 082 degrees QTc Int : 402 ms Sinus bradycardia Otherwise normal ECG When compared with ECG of 03-OCT-2023 02:25, No significant change was found Referred By: Generic ED Physician Electronically Signed By:Rolan Dasilva
--- NOTE | ~2024-03-30 | XR_ITS ---
EXAMINATION: XR SHOULDER, LEFT CLINICAL INFORMATION: Pain. COMPARISON: None available. TECHNIQUE: AP external rotation, Grashey, scapular Y, and axillary views of the left shoulder. FINDINGS: Bony structures are osteopenic. The joint spaces are maintained. There is no fracture. The soft tissues are unremarkable. XR/XR shoulder LT min 2V IMPRESSION: Osteopenia. No acute fracture or significant degenerative changes. Electronically signed by: Brady Miranda MD 03/31/2024 05:57 AM EDT
[2024-03-30 22:11] VITALS: BP 114/68; PULSE 64; RESP 18; TEMP 36.7; O2SAT 98; BMI 17.4
[2024-03-30 22:33] LABS: Basophils Percent Auto 0.6 % (0-2); Eosinophils Absolute Auto 0.5 X10*3/uL (0.0-0.4); Eosinophils Percent Auto 8.6 % (0-4); Hematocrit 34.2 % (37.0-47.0); Hemoglobin 11.2 g/dl (12.0-16.0); Imm Gran Abs Auto 0.01 X10*3/uL (0.00-0.03); Imm Gran Pct Auto 0.2 % (0.0-0.4); Lymphocytes Absolute Auto 1.8 X10*3/uL (1.2-4.9); Lymphocytes Percent Auto 33.3 % (20-40); MANUAL DIFF FLAG NO; Mean Corpuscular HGB Conc 32.7 g/dl (31.0-35.0); Mean Corpuscular Volume 82.4 fL (80.0-98.0); Mean Platelet Volume 9.4 fL (9.4-12.3); Monocytes Absolute Auto 0.3 X10*3/uL (0.1-1.2); Monocytes Percent Auto 5.8 % (2-11); Neutrophils Absolute Auto 2.8 x10*3/uL (2.0-8.3); Neutrophils Percent Auto 51.5 % (45-73); Platelet Count 183 X10*3/uL (160-400); Red Blood Count 4.15 X10*6/uL (4.20-5.50); Red Cell Distribution Width 12.6 % (11.0-16.0); White Blood Count 5.4 X10*3/uL (4.8-10.8)
[2024-03-30 22:54] LABS: Alanine Aminotransferase 28 U/L (0-31); Albumin Level 4.1 g/dL (3.5-5.0); Alkaline Phosphatase 78 U/L (39-117); Anion Gap 11 (12-20); Aspartate Amino Transferase 36 U/L (5-31); Bilirubin Total 0.2 mg/dL (0.0-1.0); Blood Urea Nitrogen 13 mg/dL (9-16); Calcium 9.4 mg/dL (8.4-10.2); Carbon Dioxide 28 mmol/L (22-29); Chloride 108 mmol/L (96-108); Creatinine Clr Calc Pharmacy 43.7; Estimated Glomerular Filt Rate 47; Glucose Random 97 mg/dL (60-115); HCG Quantitative 5 mIU/mL; Potassium 4.5 mmol/L (3.3-5.1); Sodium 142 mmol/L (135-145); Troponin-I High Sensitivity < 2.7 ng/L (<3.5-17.0)
--- NOTE | 2024-03-31 00:34 | ED_ITS ---
HPI - General Adult General Chief complaint: General Medical Stated complaint: arm and neck pain Time Seen by Provider: 03/31/24 00:35 Source: patient Limitations: language barrier History of Present Illness ED Provider: Yvonne Feliciano PA-C HPI narrative: 58-year-old female with a history of anxiety presents with left shoulder pain x1 day. Pain worse with movement of the arm, it radiates to left anterior chest at times. 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 Denies neck pain, radiation of pain down the left upper extremity, no paresthesia. Denies shortness of breath, diaphoresis or nausea. Related Data Home Medications ?Medication ?Instructions ?Recorded ?Confirmed cholecalciferol (vitamin D3) 25 1 tab PO DAILY 04/28/20 10/03/23 mcg (1,000 unit) tablet Previous Rx's ?Medication ?Instructions ?Recorded meloxicam 15 mg tablet 15 mg PO DAILY #7 tabs 03/31/24 Allergies Allergy/AdvReac Type Severity Reaction Status Date / Time No Known Allergies Allergy Verified 03/30/24 22:15 Review of Systems 2 Review of Systems: Yes all other systems are reviewed and are negative Constitutional: Constitutional: Denies fatigue and Denies fever(s) ENT: Denies neck pain Cardiovascular: Cardiovascular: Reports chest pain and Denies dyspnea Respiratory: Respiratory: Denies cough and Denies dyspnea Musculoskeletal: Musculoskeletal: Denies deformity, Reports arthralgias, Denies joint swelling, Denies neck pain, Denies numbness and Denies tingling Neurologic: Denies numbness and Denies tingling Endocrine: Endocrine: Denies fatigue PMF Past Medical History Attestation statement: The following information was validated with the patient. Medical History Atypical squamous cells cannot exclude high grade squamous intraepithelial lesion on cytologic smear of cervix (ASC-H) Family history of colonic polyps Family history of colon cancer Migraines Chest pain Arthritis Back pain Hx of constipation Hx of iron deficiency anemia Low blood pressure Surgical History Hx of tubal ligation Hx of colonoscopy Family History Family History Brother Colon cancer Sister Colon polyps Breast cancer Sister Breast cancer Social History Social History Household Members: None Housing: Apartment Alcohol intake: never Patient Tobacco Use Status: Never used Tobacco Advance Directives: Yes Advance Directives on File: Yes Advance Directives Date on File: 10/05/23 service: No Current occupational status: unemployed Sexual orientation: Straight/Heterosexual Gender identity: Female Physical Exam ED Vital Signs: Vital Signs - 24 hr 03/30/24 22:11 Temperature 98.0 F Pulse Rate 64 Respiratory Rate 18 Blood Pressure 114/68 Pulse Oximetry 98 Oxygen Delivery Method Room Air BMI result Body Mass Index 17.4 Const Other: Alert, well in appearance Orientation/consciousness: patient oriented x3 Chest Other: Pain elicited left anterior chest wall with movement of left upper extremity Resp Other: Nonlabored respiration Cardio Other: Normal peripheral perfusion Skin Other: Warm dry no rash Neuro General: patient oriented x3, no focal motor deficits and CN's II-XI intact bilaterally Extrem Other: Patient able to range the joint, there was no overlying erythema or warmth, pain with range of motion Psych Other: Calm cooperative Medical Decision Making Medical Decision Making MDM Narrative: 58-year-old female with a history of anxiety presents with left shoulder pain x1 day. Pain worse with movement of the arm, it radiates to left anterior chest at times. 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 Denies neck pain, radiation of pain down the left upper extremity, no paresthesia. Denies shortness of breath, diaphoresis or nausea. Problem: Age and anxiety History: Per patient I have considered the following differential diagnoses: ACS, cervical radiculopathy, musculoskeletal strain, septic joint Plan: ACS was considered given the patient's age, however patient has discrete left shoulder pain, and she has a mechanism of injury. Screening labs including troponin, EKG obtained, I am waiting on the x-ray of the shoulder. She has no radicular symptoms had no neck pain. Thought about septic joint, however there was no overlying erythema or warmth, and she can range the joint. I have independently reviewed the following tests: Labs: No leukocytosis, not anemic, no electrolyte abnormality troponin negative EKG: sinus Oz, rate of 57, no ischemic changes no ectopy X-ray left shoulder: No fracture no dislocation, arthritic changes noted Lab Data 03/30/24 22:26 03/30/24 22:26 Labs: Lab Results 03/30/24 Range/Units 22:26 WBC 5.4 (4.8-10.8) X10*3/uL RBC 4.15 L (4.20-5.50) X10*6/uL Hgb 11.2 L (12.0-16.0) g/dl Hct 34.2 L (37.0-47.0) % MCV 82.4 (80.0-98.0) fL MCH 27.0 (27.0-33.0) pg MCHC 32.7 (31.0-35.0) g/dl RDW 12.6 (11.0-16.0) % Plt Count 183 (160-400) X10*3/uL MPV 9.4 (9.4-12.3) fL Immature Gran % (Auto) 0.2 (0.0-0.4) % Neut % (Auto) 51.5 (45-73) % Lymph % (Auto) 33.3 (20-40) % Pacific % (Auto) 5.8 (2-11) % Eos % (Auto) 8.6 H (0-4) % Baso % (Auto) 0.6 (0-2) % Lymph # (Auto) 1.8 (1.2-4.9) X10*3/uL Pacific # (Auto) 0.3 (0.1-1.2) X10*3/uL Eos # (Auto) 0.5 H (0.0-0.4) X10*3/uL Baso # (Auto) 0.0 (0.0-0.2) X10*3/uL Abs Immat Gran (auto) 0.01 (0.00-0.03) X10*3/uL Absolute Neuts (auto) 2.8 (2.0-8.3) x10*3/uL Absolute Nucleated RBC 0.000 (0.0-0.012) X10*3/uL Nucleated RBC % (auto) 0.0 (0.0-0.2) /100WBC Sodium 142 (135-145) mmol/L Potassium 4.5 (3.3-5.1) mmol/L Chloride 108 (96-108) mmol/L Carbon Dioxide 28 (22-29) mmol/L Anion Gap 11 L (12-20) BUN 13 (9-16) mg/dL Creatinine 1.17 (0.5-1.4) mg/dL Estim Creat Clear Calc 43.7 Estimated GFR 47 Random Glucose 97 (60-115) mg/dL Calcium 9.4 (8.4-10.2) mg/dL Total Bilirubin 0.2 (0.0-1.0) mg/dL AST 36 H (5-31) U/L ALT 28 (0-31) U/L Alkaline Phosphatase 78 (39-117) U/L Troponin I High Sens < 2.7 (<3.5-17.0) ng/L Total Protein 7.0 (6.5-8.0) g/dL Albumin 4.1 (3.5-5.0) g/dL Beta HCG, Quant 5 mIU/mL Discharge Plan Discharge Clinical Impression: Arthritis of shoulder Patient Disposition: Home, Self-Care Instructions: Osteoarthritis (ED) Additional Instructions: All of your screening labs including a cardiac enzymes were normal, there were no concerning changes on her EKG, the x-ray of the shoulder reveal that you have arthritis. See home care instructions. Use the meloxicam as directed, this is an anti-inflammatory, take it with food. You can alternate the meloxicam with [id number] Tylenol 1000 mg taken every 8 hours, as needed for your pain. Follow up with your primary care provider as needed. Prescriptions: New meloxicam 15 mg tablet 15 mg PO DAILY Qty: 7 0RF No Action cholecalciferol (vitamin D3) 25 mcg (1,000 unit) tablet 1 tab PO DAILY Print Language: Hebrew
[2024-03-31 02:00] VITALS: BP 119/72; PULSE 66; RESP 16; TEMP 36.8; O2SAT 97
[2024-03-31 02:05] VITALS: BP 119/72; PULSE 66; RESP 16; TEMP 36.8; O2SAT 97
== END 2024-03-31 02:07 | disposition home or self-care (01) ==
PROVIDERS: Emergency Provider Emergency Medicine
DX: M25.512 Pain in left shoulder (principal); M19.012 Primary osteoarthritis, left shoulder
CPT/HCPCS: 36415; 73030; 80053; 84484; 84702; 85025; 93005; 99283; 99284

== ENCOUNTER → 2024-03-30 22:25 | Outpatient (BNV) | payer OTHER, SELFPAY | PROVIDERS: Emergency Provider Emergency Medicine; Visit Provider Internal Medicine Cardiovascular Disease | DX: R00.1 Bradycardia, unspecified (principal) | CPT/HCPCS: 93010 ==

== ENCOUNTER 2024-05-15 13:45 | Outpatient (AMB) | payer OTHER, SELFPAY ==
--- NOTE | 2024-05-15 13:46 | MHC.OFFVIS ---
Intake Visit Reasons: 2m follow up Intake Note: Patient is present for 2m F/U Urology Medication:NONE Antibiotic Allergy:NONE Blood Thinner:NONE Artist Relationship Manager Required: Yes Allergies No Known Allergies Allergy (Verified 05/15/24 13:47) HPI Comments Details: Brenda is a pleasant female. She is a patient of Dr. Zhou. She is seen for the following urologic conditions - current UTI - nocturia with some urge incontinence Telemedicine Evaluation 15 min Consultation DoxLomography Kriss Video Follow-up trial of oxybutynin Luxembourger translation provided by qualified medical sales associate Minimal benefit Prefers to make diet adjustments Bladder instability PVR 0 cc Obstetric history 3 pregnancies, 3 normal vaginal deliveries Progressive urinary urgency and frequency Involved bathroom planning Nocturia x2 PFSH Medical History Atypical squamous cells cannot exclude high grade squamous intraepithelial lesion on cytologic smear of cervix (ASC-H) Family history of colonic polyps Family history of colon cancer Migraines Chest pain Arthritis Back pain Hx of constipation Hx of iron deficiency anemia Low blood pressure Surgical History Hx of tubal ligation Hx of colonoscopy Family History Brother Colon cancer Sister Colon polyps Breast cancer Sister Breast cancer Social History Household Members: None Housing: Apartment Alcohol intake: never Patient Tobacco Use Status: Never used Tobacco Advance Directives Date on File: 10/05/23 service: No Current occupational status: unemployed Sexual orientation: Straight/Heterosexual Gender identity: Female Female Reproductive History Menstrual Age of Menarche: 13 Review of Systems Const All systems reviewed & are unremarkable except as noted in HPI and below Reports no additional complaints Resp Reports no additional complaints GI Reports no additional complaints Reports as per HPI Musc Reports no additional complaints Physical Exam Telemedicine evaluation Appropriate responses Regular breathing rate and rhythm HEENT Head: Yes normal to inspection Ears: hearing grossly normal bilaterally Eyes General: appearance normal, both eyes and all related structures Neck Neck: Yes normal visual inspection Chest Chest palpation & inspection: normal inspection of the chest Resp Effort & Inspection: normal respiratory effort and able to speak in complete sentences Telehealth Telehealth Location of provider rendering services: practice address Location of patient: address on file Patient Identification confirmed using: Name, : Yes Telehealth method: voice only Patient verbally consented to treatment: Yes Patient verbally consented to billing insurance company: Yes Patient informed of any privacy concerns related to visit: Yes Assessment & Plan Assessment & Plan (1) Urge incontinence: Comment: With urinary frequency/nocturia Code(s): N39.41 - Urge incontinence Category: Medical Plan PRN Patient Instructions: Imaging studies, laboratory and physical exam results were discussed and reviewed in detail. No major barriers to patient understanding were identified. An opportunity to ask questions regarding the treatment plan was provided. All questions were answered. The patient expressed understanding and agreement with the above treatment plan. The patient is aware they should contact our office by phone for worsening of their current condition or the appearance of new urologic symptoms. Compliance is encouraged with any medications and followup testing that is ordered. It is a privilege to participate in the urologic care of your patient. If you have any questions or concerns regarding treatment for the above conditions, or other urologic issues, please do not hesitate to contact me. The office telephone contact is [phone]. This note is constructed using voice recognition software. While every effort has been made to ensure accuracy surface to air weapons officer errors may have been included. Yours sincerely, Dr Sandeep Russo MD, [facility] - Urology Providers of Expert, Compassionate Care for the Genitourinary System Coding Level of Care Code Tele Est Pt Level 3 (13224) Diagnoses Urge incontinence N39.41
== END 2024-05-15 16:03 | disposition home or self-care (01) ==
LOC: HO.HUSH 13:45
PROVIDERS: Visit Provider Urology
DX: N39.41 Urge incontinence (principal)
CPT/HCPCS: 99213

== ENCOUNTER → 2024-09-17 13:31 | Outpatient (BNV) | payer OTHER, SELFPAY | PROVIDERS: Visit Provider Radiology Diagnostic Radiology | DX: M25.552 Pain in left hip (principal) | CPT/HCPCS: 73502 ==

== ENCOUNTER 2024-11-16 12:55 | Outpatient (REF) | payer OTHER, SELFPAY ==
--- NOTE | ~2024-11-16 | MM_ITS ---
EXAMINATION: DXA BONE DENSITY AXIAL HISTORY: screening osteoporosis TECHNIQUE: [employer] Dual energy absorptiometry (DEXA) of the lumbar spine, total left hip, and femoral neck was performed. COMPARISON: There are no prior studies for comparison. FINDINGS: The bone mineral density of the lumbar spine is 0.766, corresponding to a T-score of -3.5, and a Z-score of -1.9. This is indicative of osteoporosis. The bone mineral density of the left total hip is 0.635, corresponding to a T-score of -3.0, and a Z-score of -1.8. This is indicative of osteoporosis. The bone mineral density of the left femoral neck is 0.628, corresponding to a T-score of -2.9, and a Z-score of -1.6. This is indicative of osteoporosis. FRACTURE RISK: The FRAX index suggests a risk of major osteoporotic fracture of 6.7%, and of hip fracture 1.9%. MM/XR DEXA axial skeleton IMPRESSION: Based on bone mineral density, and according to World Health Organization (WHO) criteria, the diagnosis is consistent with osteoporosis. All bone density values are in grams per centimeter squared (g/cm2). Statistically, 68% of repeat scans fall within 1 SD (+/- 0.010 g/cm2 for AP spine L1-L4) and 1 SD (+/- 0.012 g/cm2 for femur total) FRAX is a trademark of the [employer]'s [employer] Metabolic Bone Disease, a World Health Organization (WHO) Collaborating Center. Electronically signed by: Wilder Hernández MD 11/16/2024 01:51 PM EDT
--- OUTSIDE RECORDS SUMMARY | 2024-11-16 13:20 | XMS_ITS | Encounter Summary ---
Author Organization [employer] Address [address] [facility] 7t [place] [address] Care Team Providers Care Belt Picker Name Role Phone Carly Vanegas Primary Care Provider [phone] Encounter Details Date Type Department Care Team (Late st Contact Info) Description 10/02/2023 Orders Only [facility] [address] [place], [place] [phone] Provider, MD Cecilia Social History Tobacco Use Types Packs/Day Years Used Date Smoking Tobacco: Never Passive Smoke Exposure: Current Smokeless Tobacco: Never Alcohol Use Standard Drinks/Week Comments Not Currently 0 (1 standard drink = 0.6 oz pur e alcohol) Depression Answer Date Recorded Patient Health Questionnaire-9 Score 0 09/06/2023 Patient Health Questionnaire-9 Score 0 09/06/2023 Last PHQ-9: Questionnaire Data Not on file 0 09/06/2023 Housing Stability Answer Date Recorded What is your housing situation today? I have sarah lyn 08/29/[address] you li ve. Do you have problems with any of the following? None of the above 08/29/2023 Food Insecurity Answer Date Recorded Within the past 12 months, y ou worried that your food would run out before you got money to buy more: Never True 08/29/2023 Within the past 12 months,th e food you bought just didn't last and you didn't have enough money to get more: Never True Transportation Answer Date Recorded In the past 12 months, has l ack of transportation kept you from medical appts, meetings, work or from getting things needed for daily living? No 08/29/2023 Utilities Answer Date Recorded In the past 12 months, has t he electric, gas, oil or water company threatened to shut off services in your home? No 08/29/2023 Depression Answer Date Recorded Patient Health Questionnaire-2 Score 0 09/06/2023 Comments Unknown Sex and Gender Information Value Date Recorded Sex Assigned at Female 04/05/2022 10:14 AM EDT Legal Sex Female 10:14 AM EDT Gender Identity Female 04/05/2022 10:14 AM EDT Sexual Orientation Choose not to disclose 2021 10:14 AM EDT documented as of this encounter Plan of Treatment Upcoming Encounters Date Type Department Care Team (Late st Contact Info) Description 03/11/2025 3:00 PM EDT Office Visit [facility] [address] [place] [address] Elina Chaudhary documented as of this encounter Procedures Procedure Name Priority Date/Time Associated Diagnosis Comments BI MAMMOGRAM SCREENING TOMOSYNTHESIS BILATERAL Routine 11/01/2023 1:38 PM EDT HM COLONOSCOPY Routine 04/28/2020 5:09 PM EST documented in this encounter Results * BI Mammogram Screening Tomosynthesis Bilateral (11/01/2023 1:38 PM EDT) Anatomical Region Laterality Modality Breast Bilateral Mammography 11/01/2023 1:38 PM EDT Narrative 11/28/2023 3:36 AM EDT ? [facility] [place] ? [address] ?[place] [address] ? Mammography Report ? Signed ? Patient: Osorio Ben,Cathryn ?MR#: ?? [id number] ? : 1965 ?Acct:[id number] ? Age/Sex: 58 / F ?ADM Date: 05/28/24 ? Loc: HO.MAMMO ? Attending Dr: Carly Vanegas PULP HOUSE SUPERVISOR ? Ordering Physician: CARLY VANEGAS NP ?Results: 1Negative ? Date of Service: 11/01/23 ?Follow Up: 1 Year From Orig ?? inal Mammogram ? Procedure(s): MM tomosynthesis screening BI ?? Accession Number(s): [id number] ? cc: ROMINA,CARLY YOUNG ? EXAMINATION: ?? MM SCREENING DIGITAL BREAST TOMOSYNTHESIS, BILATERAL ? CLINICAL INFORMATION: ? Screening. Asymptomatic. ? COMPARISON: ?? Mammography: This study is compared with prior exams dating back to ?? 2019. ? TECHNIQUE: ?? Digital breast tomosynthesis is performed in both the craniocaudal and ?? mediolateral oblique views along with computer-aided detection (CAD). ?? Synthesized 2D images are generated from the tomosynthesis. ? FINDINGS: ?? The breasts are heterogeneously dense, which may obscure small masses ?? (ACR BI-RADS breast composition Category c). ? There are no significant masses, abnormal calcifications, or other ?? abnormalities. ? MM/MM tomosynthesis screening BI ?? IMPRESSION: ?? No mammographic evidence of malignancy. ? ASSESSMENT: ? BI-RADS BI-RADS 1 - Negative ? RECOMMENDATION: ?? Routine annual mammography screening. ? 1 year F/U ? This examination should not preclude the clinical evaluation of a ?? suspicious palpable abnormality. ? This patient's information was entered into a reminder system with a ?? target due date for their next mammogram. ? Dictated By: ?Keya Robin MD ? Signed By: ?<Electronically signed by Keya Robin MD in OV> ? 11/28/23331 ? DD/ ? TD/TT: ? Straddle Bug Operator: ? Procedure Note Mau, Carlo - 11/28/2023 [facility] [address] [place], [place] [address] Mammography Report Signed Patient: Cathryn NegroMR#: [id number] : 1965Acct:[id number] Age/Sex: 58 / FADM Date: 11/01/23 Loc: HO.MAMMO Attending Dr: Carly Vanegas PULP HOUSE SUPERVISOR Ordering Physician: CARLY VANEGAS NPResults: 1Negative Date of Service: 11/01/23Follow Up: 1 Year From Orig inal Mammogram Procedure(s): MM tomosynthesis screening BI Accession Number(s): [id number] cc: CARLY VANEGAS NP EXAMINATION: MM SCREENING DIGITAL BREAST TOMOSYNTHESIS, BILATERAL CLINICAL INFORMATION: Screening. Asymptomatic. COMPARISON: Mammography: This study is compared with prior exams dating back to 2019. TECHNIQUE: Digital breast tomosynthesis is performed in both the craniocaudal and mediolateral oblique views along with computer-aided detection (CAD). Synthesized 2D images are generated from the tomosynthesis. FINDINGS: The breasts are heterogeneously dense, which may obscure small masses (ACR BI-RADS breast composition Category c). There are no significant masses, abnormal calcifications, or other abnormalities. MM/MM tomosynthesis screening BI IMPRESSION: No mammographic evidence of malignancy. ASSESSMENT: BI-RADS BI-RADS 1 - Negative RECOMMENDATION: Routine annual mammography screening. 1 year F/U This examination should not preclude the clinical evaluation of a suspicious palpable abnormality. This patient's information was entered into a reminder system with a target due date for their next mammogram. Dictated By: Keya Robin MD Signed By: <Electronically signed by Keya Robin MD in OV> 11/28/23 0332 DD/ 1338 TD/TT: Straddle Bug Operator: us Carly Vanegas ANP IMG BI PROCEDURES Final Result * Hm Colonoscopy (04/28/2020 5:09 PM EST) us Historical Provider HEALTH MAINTENANCE Final Result documented in this encounter Visit Diagnoses Not on filedocumented in this encounter Additional Health Concerns Assessment Noted Time PHQ-9 Depression Total Score: 0 04/02/20 24 1:49 PM EDT documented as of this encounter Care Teams Belt Picker Relationship Specialty Start Date End Date Carly Vanegas ANP [address] [place] [address] PCP - General Family Medicine 05/19/20 documented as of this encounter
== END 2024-11-16 12:56 | disposition home or self-care (01) ==
LOC: HO.MAMMO 12:55
PROVIDERS: PCP Nurse Practitioner Primary Care; Visit Provider Nurse Practitioner Primary Care
DX: Z13.820 Encounter for screening for osteoporosis (principal); Z78.0 Asymptomatic menopausal state
CPT/HCPCS: 77080

== ENCOUNTER → 2024-11-16 13:00 | Outpatient (BNV) | payer OTHER, SELFPAY | PROVIDERS: PCP Nurse Practitioner Primary Care; Visit Provider Radiology Diagnostic Radiology | DX: E28.39 Other primary ovarian failure (principal) | CPT/HCPCS: 77080 ==

== ENCOUNTER 2024-11-23 13:05 | Outpatient (REF) | payer OTHER, SELFPAY ==
--- OUTSIDE RECORDS SUMMARY | 2024-11-23 13:08 | XMS_ITS | Encounter Summary ---
Author Organization [employer] Address [address] [facility] 7t [place] [address] Care Team Providers Care Cooker Syrup Name Role Phone Carly Vanegas Primary Care Provider [phone] Encounter Details Date Type Department Care Team (Late st Contact Info) Description 10/02/2023 Orders Only [facility] [address] [place], [place] [phone] Provider, MD Cecilia Social History Tobacco Use [...] Description 03/11/2025 3:00 PM EDT Office Visit [facility] ADULT DENTAL [address] [facility] [place] [address] Elina Chaudhary documented as of this encounter Procedures Procedure Name Priority Date/Time Associated Diagnosis Comments BI MAMMOGRAM SCREENING TOMOSYNTHESIS BILATERAL Routine 11/01/2023 1:38 PM EDT HM COLONOSCOPY Routine 04/28/2020 5:09 PM EST documented in this encounter Results * BI Mammogram Screening Tomosynthesis Bilateral (11/01/2023 1:38 PM EDT) Anatomical Region Laterality Modality Breast Bilateral Mammography 11/01/2023 1:38 PM EDT Narrative 11/28/2023 3:36 AM EDT [facility] [address] [place] [address] Mammography Report Signed Patient: Cathryn Negro MR#: [id number] : 1965 Acct:[id number] Age/Sex: 58 / F ADM Date: 11/01/23 Loc: HO.MAMMO Attending Dr: Carly Vanegas NP Ordering Physician: CARLY VANEGAS NP Results: 1Negative Date of Service: 11/01/23 Follow Up: 1 Year From Orig inal Mammogram Procedure(s): MM tomosynthesis screening BI Accession Number(s): [id number] cc: CARLY VANEGAS NP EXAMINATION: MM SCREENING [...] in OV> 11/28/23 0332 DD/ 1338 TD/TT: Oral Health Therapist: Procedure Note Donotuseinterpreter, Image - [facility]/28/[facility] [address] [place], [place] [address] Mammography Report Signed Patient: Cathryn NegroMR#: [id number] : 1965Acct:[id number] Age/Sex: 58 / FADM Date: 11/01/23 Loc: BEBE Attending Dr: Carly Vanegas NP Ordering Physician: CARLY VANEGAS NPResults: 1Negative Date of Service: 11/01/23Follow Up: 1 Year From Orig inal Mammogram Procedure(s): MM tomosynthesis screening BI Accession Number(s): [id number] cc: CARLY VANEGAS NP EXAMINATION: MM SCREENING [...] in OV> 11/28/23 0332 DD/ 1338 TD/TT: Oral Health Therapist: us Carly DEVI IMG BI PROCEDURES Final Result * Hm Colonoscopy (04/28/2020 5:09 PM EST) Historical Provider HEALTH MAINTENANCE Final Result documented in this encounter Visit Diagnoses Not on filedocumented in this encounter Additional Health Concerns Assessment Noted Time PHQ-9 Depression Total Score: 0 09/06/19 24 1:49 PM EDT documented as of this encounter Care Teams Cooker Syrup Relationship Specialty Start Date End Date Carly Vanegas ANP [address] [place] [address] PCP - General Family Medicine 05/19/20 documented as of this encounter
[2024-11-23 16:35] LABS: Anion Gap 9 (12-20); Blood Urea Nitrogen 14 mg/dL (9-16); Calcium 9.2 mg/dL (8.4-10.2); Carbon Dioxide 28 mmol/L (22-29); Chloride 107 mmol/L (96-108); Estimated Glomerular Filt Rate > 60; Glucose Random 111 mg/dL (60-115); Potassium 4.1 mmol/L (3.3-5.1); Sodium 140 mmol/L (135-145)
[2024-11-23 16:41] LABS: Vitamin D 25-OH Total 42.1 ng/mL (>30)
[2024-11-23 16:54] LABS: Parathyroid Hormone Intact 67.9 pg/mL (8.7-77.1)
== END 2024-11-23 13:06 | disposition home or self-care (01) ==
LOC: HO.HHCL 13:05
PROVIDERS: PCP Nurse Practitioner Primary Care; Visit Provider Nurse Practitioner Primary Care
DX: M81.0 Age-related osteoporosis without current pathological fracture (principal)
CPT/HCPCS: 36415; 80048; 82306; 83970

== ENCOUNTER 2024-12-11 11:23 | Emergency (ER) | payer OTHER, SELFPAY ==
--- NOTE | 2024-12-11 | ECG_ITS ---
Test Reason : CHEST PAIN Blood Pressure : */* mmHG Vent. Rate : 70 BPM Atrial Rate : 70 BPM P-R Int : 148 ms QRS Dur : 82 ms QT Int : 394 ms P-R-T Axes : 68 84 67 degrees QTcB Int : 425 ms Normal sinus rhythm Normal ECG When compared with ECG of 30-Mar-2024 22:25, No significant change was found Referred By: Generic ED Physician Electronically Signed By: Rolan Dasilva
--- NOTE | ~2024-12-11 | XR_ITS ---
EXAMINATION: XR CHEST CLINICAL INFORMATION: Chest pain COMPARISON: October 03, 2023 TECHNIQUE: 2 views of the chest were obtained. FINDINGS: There is mild apical thickening. There is hyperexpansion of the lungs. Pulmonary vessels are distinct and of normal caliber. Cardiac and hilar structures are within normal limits. There is no sign of pleural effusion. XR/XR chest 2V IMPRESSION: No acute disease Electronically signed by: Oliverio Sheffield MD 12/11/2024 11:55 AM EDT
[2024-12-11 11:39] VITALS: BP 119/70; PULSE 65; RESP 16; TEMP 36.9; O2SAT 99; BMI 17.0
--- NOTE | 2024-12-11 11:42 | ED.GENADULT ---
HPI - General Adult General Chief complaint: Chest Pain Stated complaint: chest pain Time Seen by Provider: 12/11/24 14:25 History of Present Illness ED Provider: Oliver Leon MD HPI narrative: 59-year-old female with no significant cardiac history she reports atraumatic left parasternal chest discomfort fluctuating but worse with deep inspiration palpation and changing her chest position. She denies leg swelling shortness of breath palpitations or history of DVT or PE or any exogenous hormone use. No direct blow to the chest wall. No cough or hemoptysis Related Data Home Medications ?Medication ?Instructions ?Recorded ?Confirmed cholecalciferol (vitamin D3) 25 1 tab PO DAILY 04/28/20 10/03/23 mcg (1,000 unit) tablet Previous Rx's ?Medication ?Instructions ?Recorded meloxicam 15 mg tablet 15 mg PO DAILY #7 tabs 03/31/24 Allergies Allergy/AdvReac Type Severity Reaction Status Date / Time No Known Allergies Allergy Verified 12/11/24 11:42 PMFSH Past Medical History Medical History Atypical squamous cells cannot exclude high grade squamous intraepithelial lesion on cytologic smear of cervix (ASC-H) Family history of colonic polyps Family history of colon cancer Migraines Chest pain Arthritis Back pain Hx of constipation Hx of iron deficiency anemia Low blood pressure Surgical History Hx of tubal ligation Hx of colonoscopy Family History Family History Brother Colon cancer Sister Colon polyps Breast cancer Sister Breast cancer Social History Social History (System 10/03/24 @ 15:51 by Marlin Tinoco) Household Members: None Housing: Apartment Alcohol intake: never Patient Tobacco Use Status: Never used Tobacco Advance Directives: Yes Advance Directives on File: Yes Advance Directives Date on File: 10/05/23 Do you have a plan to hurt others: No Plan service: No Current occupational status: unemployed Sexual orientation: Straight/Heterosexual Gender identity: Female Physical Exam ED Vital Signs: Vital Signs - 24 hr 12/11/24 11:39 Temperature 98.4 F Pulse Rate 65 Respiratory Rate 16 Blood Pressure 119/70 Pulse Oximetry 99 Oxygen Delivery Method Room Air BMI result Body Mass Index 17.0 EXAM: Gen: Alert, awake, well appearing, well hydrated. Head: Atraumatic Eyes: Anicteric, Normal conjunctiva. ENT: Moist mucosa, no pallor. ? Neck: Supple. Skin: ?No observable rash or bruising on exposed or examined skin Respiratory: Breathing comfortably, No distress.Clear to auscultation bilaterally, symmetric chest expansion, No wheeze, rales, ronchi. Cardiovascular: Regular rate and rhythm. No murmurs or rub. Well perfused periphery, warm extremities. No edema. ? Abdominal: No focal tenderness. Soft, no objective distension. No palpable masses or obvious organomegaly. ?No guarding, no rebound tenderness or other peritoneal findings. : No flank tenderness. Neuro: Alert. Gross movement of all extremities intact. ? Psych: Calm. Cooperative. MSK: No grossly visible deformity. Exquisite chest wall tenderness of the left parasternal border no crepitus bruising or other abnormalities to this area. This reproduces her pain that Vital signs: See flowsheet Course Course Course Narrative: RMLetitia; 59-year-old female presents to ED for chest pain that began this morning and at work. Patient also states shortness of breath. Patient is well-appearing. Vital signs stable. Not in distress. EKG labs ordered Medications Administered Discontinued Medications Generic Name Dose Route Start Last Admin Trade Name Shorty PRN Reason Stop Dose Admin Lidocaine 1 patch 12/11/24 15:12/11/24 15:27 Lidocaine 4 % Patch Adh..Patch TRANSDERMA 12/11/24 15:09 1 patch ONCE ONE Administration Protocol Naproxen 500 mg 12/11/24 15:12/11/24 15:26 Naproxen 500 Mg Tablet PO 12/11/24 15:09 500 mg ONCE ONE Administration Omeprazole 20 mg 12/11/24 15:11 12/11/24 15:27 Omeprazole 20 Mg Capsule.Dr PO 12/11/24 15:12 20 mg ONCE ONE Administration Prednisone 40 mg 12/11/24 15:11 12/11/24 15:26 Prednisone 20 Mg Tablet PO 12/11/24 15:12 40 mg ONCE ONE Administration Medical Decision Making Medical Decision Making MDM Narrative: Medical Decision Making: This is a 59-year-old female who presents with multiple vague symptoms and atypical chest discomfort. She does not have classical angina and has no coronary disease. Exquisite chest wall tenderness along the parasternal border on the left side. Suggestive of costochondritis/musculoskeletal. Preliminary Favored Differential Diagnosis: Musculoskeletal pain, atypical pain, pleuritis, pericarditis, less likely ACS or PE among additional considered etiologies Testing Interpreted Independently: ECG sinus rhythm 70, QTC 425. No acute ischemic changes. Radiology or Lab testing Results Reviewed: Not Applicable Consults: Not Applicable Independent Historians/External Chart Reviews: Not Applicable Social Determinants of Health Impacting MDM/Planning: Not Applicable Lab Data 12/11/24 11:56 12/11/24 11:56 Labs: Lab Results 12/11/24 Range/Units 11:56 WBC 5.6 (4.8-10.8) X10*3/uL RBC 4.40 (4.20-5.50) X10*6/uL Hgb 11.9 L (12.0-16.0) g/dl Hct 36.2 L (37.0-47.0) % MCV 82.3 (80.0-98.0) fL MCH 27.0 (27.0-33.0) pg MCHC 32.9 (31.0-35.0) g/dl RDW 12.5 (11.0-16.0) % Plt Count 190 (160-400) X10*3/uL MPV 9.7 (9.4-12.3) fL Immature Gran % (Auto) 0.0 (0.0-0.4) % Neut % (Auto) 65.5 (45-73) % Lymph % (Auto) 21.8 (20-40) % Vilas % (Auto) 5.2 (2-11) % Eos % (Auto) 6.8 H (0-4) % Baso % (Auto) 0.7 (0-2) % Lymph # (Auto) 1.2 (1.2-4.9) X10*3/uL Vilas # (Auto) 0.3 (0.1-1.2) X10*3/uL Eos # (Auto) 0.4 (0.0-0.4) X10*3/uL Baso # (Auto) 0.0 (0.0-0.2) X10*3/uL Abs Immat Gran (auto) 0.00 (0.00-0.03) X10*3/uL Absolute Neuts (auto) 3.7 (2.0-8.3) x10*3/uL Absolute Nucleated RBC 0.000 (0.0-0.012) X10*3/uL Nucleated RBC % (auto) 0.0 (0.0-0.2) /100WBC PT 12.3 (10.9-12.4) SEC INR 1.1 (0.9-1.1) APTT 33.0 (26.0-36.8) SEC Sodium 140 (135-145) mmol/L Potassium 3.8 (3.3-5.1) mmol/L Chloride 106 (96-108) mmol/L Carbon Dioxide 28 (22-29) mmol/L Anion Gap 10 L (12-20) BUN 13 (9-16) mg/dL Creatinine 0.82 (0.5-1.4) mg/dL Estim Creat Clear Calc 60.2 Estimated GFR > 60 Random Glucose 92 (60-115) mg/dL Calcium 9.3 (8.4-10.2) mg/dL Total Bilirubin 0.3 (0.0-1.0) mg/dL AST 24 (5-31) U/L ALT 24 (0-31) U/L Alkaline Phosphatase 69 (39-117) U/L Troponin I High Sens < 2.7 (<3.5-17.0) ng/L Total Protein 7.4 (6.5-8.0) g/dL Albumin 4.7 (3.5-5.0) g/dL Discharge Plan Discharge Clinical Impression: Acute chest wall pain Patient Disposition: Home, Self-Care Instructions: Chest Wall Pain (ED) Additional Instructions: DISCHARGE DIAGNOSES: Chest pain we feel this is due to chest wall pain or inflammation of the chest wall bones or joints HISTORY OF PRESENTATION: ?Chest pain with inspiration and movement and palpation EMERGENCY DEPARTMENT COURSE,TESTS, TREATMENTS: While in the ED today you had blood work with heart attack enzyme tests and other tests such as electrolytes and blood counts these were normal. He had an EKG and a chest x-ray and an echocardiogram this was normal. You were given a lidocaine patch and anti-inflammatory medication DISCHARGE MEDICATIONS: ?[We have made no changes to your regular medication regimen] we recommend adding on ibuprofen 600 mg 3 times a day for the next 3 days. Heating pad or ice pack to the chest wall and gentle stretches of pectoral muscles FOLLOW-UP: ?Call your primary or general physician soon as possible to discuss your symptoms, your ED visit and to discuss follow up plans Call your primary doctor tomorrow to discuss follow up INSTRUCTIONS ?& RETURN PRECAUTIONS: If any symptoms change first call your primary physician, if it is after-hours your primary doctors office should have a provider station baggage agent you can speak with. If the symptoms are severe or very concerning to you then call 911 or return to the ED. Return for severe worsening shortness of breath coughing up blood difficulty breathing. Oliver Leon MD Emergency Physician [facility] Prescriptions: No Action cholecalciferol (vitamin D3) 25 mcg (1,000 unit) tablet 1 tab PO DAILY meloxicam 15 mg tablet 15 mg PO DAILY Qty: 7 0RF Interventions: ED Discharge Assessment Last Done: 12/11/24 15:47 Discharge Date/Time: 12/11/24 15:52 Print Language: Persian
[2024-12-11 12:01] LABS: Hematocrit 36.2 % (37.0-47.0); Hemoglobin 11.9 g/dl (12.0-16.0); Imm Gran Abs Auto 0.00 X10*3/uL (0.00-0.03); Imm Gran Pct Auto 0.0 % (0.0-0.4); Lymphocytes Absolute Auto 1.2 X10*3/uL (1.2-4.9); MANUAL DIFF FLAG NO; Mean Corpuscular HGB Conc 32.9 g/dl (31.0-35.0); Mean Corpuscular Hemoglobin 27.0 pg (27.0-33.0); Mean Corpuscular Volume 82.3 fL (80.0-98.0); NRBC Abs Auto 0.000 X10*3/uL (0.0-0.012); NRBC Pct Auto 0.0 /100WBC (0.0-0.2); Platelet Count 190 X10*3/uL (160-400); Red Blood Count 4.40 X10*6/uL (4.20-5.50); White Blood Count 5.6 X10*3/uL (4.8-10.8)
[2024-12-11 12:07] LABS: INTERNATIONAL NORM RATIO 1.1 (0.9-1.1); Prothrombin Time 12.3 SEC (10.9-12.4)
[2024-12-11 12:10] LABS: Partial Thromboplastin Time 33.0 SEC (26.0-36.8)
[2024-12-11 12:14] LABS: Alanine Aminotransferase 24 U/L (0-31); Albumin Level 4.7 g/dL (3.5-5.0); Alkaline Phosphatase 69 U/L (39-117); Anion Gap 10 (12-20); Aspartate Amino Transferase 24 U/L (5-31); Blood Urea Nitrogen 13 mg/dL (9-16); Calcium 9.3 mg/dL (8.4-10.2); Carbon Dioxide 28 mmol/L (22-29); Chloride 106 mmol/L (96-108); Creatinine Clr Calc Pharmacy 60.2; Estimated Glomerular Filt Rate > 60; Potassium 3.8 mmol/L (3.3-5.1); Sodium 140 mmol/L (135-145); Total Protein 7.4 g/dL (6.5-8.0)
[2024-12-11 12:24] LABS: Troponin-I High Sensitivity < 2.7 ng/L (<3.5-17.0)
[2024-12-11] MEDS: Lidocaine 4 % Patch ADH..PATCH 1 PATCH TRANSDERMA (15:27)
--- OUTSIDE RECORDS SUMMARY | 2024-12-11 15:37 | XMS_ITS | Encounter Summary ---
Author Organization [employer] Address [address] [facility] 7t [place] [address] Care Team Providers Care Production Control Coordinator Name Role Phone Carly Vanegas Primary Care Provider [phone] Encounter Details Date Type Department Care Team (Late st Contact Info) Description 10/02/2023 Orders Only [facility] MEDICINE [address] [place], [place] [phone] Provider, MD Cecilia Social History Tobacco Use [...] Description 03/11/2025 3:00 PM EDT Office Visit [facility] ADULT DENTAL [address] [facility] [place] [address] Elina Chaudhary documented as of this encounter Procedures Procedure Name Priority Date/Time Associated Diagnosis Comments BI MAMMOGRAM SCREENING TOMOSYNTHESIS BILATERAL Routine 11/01/2023 1:38 PM EDT HM COLONOSCOPY Routine 04/28/2020 5:09 PM EST documented in this encounter Results * BI Mammogram Screening Tomosynthesis Bilateral (11/01/2023 1:38 PM EDT) Anatomical Region Laterality Modality Breast Bilateral Mammography 11/01/2023 1:38 PM EDT Narrative 11/28/2023 3:36 AM EDT [facility] [address] [place] [address] Mammography Report Signed Patient: Cathryn Negro MR#: [id number] : 1965 Acct:[id number] Age/Sex: 58 / F ADM Date: 11/01/23 Loc: HO.MAMMO Attending Dr: Carly Vanegas NP Ordering Physician: CARLY VANEGAS NP Results: 1Negative Date of Service: 11/01/23 Follow Up: 1 Year From Orig inal Mammogram Procedure(s): MM tomosynthesis screening BI Accession Number(s): [id number] cc: CARLY VANEGAS NP EXAMINATION: MM SCREENING [...] in OV> 11/28/23 0332 DD/ 1338 TD/TT: Anode Builder: Procedure Note Donotuseinterpreter, Image - 11/28/20[facility] [address] [place] [address] Mammography Report Signed Patient: Cathryn NegroMR#: [id number] : 1965Acct:[id number] Age/Sex: 58 / FADM Date: 11/01/23 Loc: BEBE Attending Dr: Carly Vanegas NP Ordering Physician: CARLY VANEGAS NPResults: 1Negative Date of Service: 11/01/23Follow Up: 1 Year From Orig inal Mammogram Procedure(s): MM tomosynthesis screening BI Accession Number(s): [id number] cc: CARLY VANEGAS NP EXAMINATION: MM SCREENING [...] in OV> 11/28/23 0332 DD/ 1338 TD/TT: Anode Builder: us Carly DEVI IMG BI PROCEDURES Final Result * Hm Colonoscopy (04/28/2020 5:09 PM EST) Historical Provider HEALTH MAINTENANCE Final Result documented in this encounter Visit Diagnoses Not on filedocumented in this encounter Additional Health Concerns Assessment Noted Time PHQ-9 Depression Total Score: 0 09/06/19 24 1:49 PM EDT documented as of this encounter Care Teams Production Control Coordinator Relationship Specialty Start Date End Date Carly Vanegas ANP [address] [place] [address] PCP - General Family Medicine 05/19/20 documented as of this encounter
[2024-12-11 15:47] VITALS: BP 119/70; PULSE 65; RESP 16; TEMP 36.9; O2SAT 99
== END 2024-12-11 15:52 | disposition home or self-care (01) ==
PROVIDERS: Physician Assistant; Emergency Provider Emergency Medicine; PCP Nurse Practitioner Primary Care
DX: R07.89 Other chest pain (principal)
CPT/HCPCS: 36415; 71046; 80053; 84484; 85025; 85610; 85730; 93005; 99283; 99284

== ENCOUNTER → 2024-12-11 11:26 | Outpatient (BNV) | payer OTHER, SELFPAY | PROVIDERS: Emergency Provider Emergency Medicine; PCP Nurse Practitioner Primary Care; Visit Provider Internal Medicine Cardiovascular Disease | DX: R07.89 Other chest pain (principal) | CPT/HCPCS: 93010 ==

== ENCOUNTER → 2024-12-11 11:42 | Outpatient (BNV) | payer OTHER, SELFPAY | PROVIDERS: PCP Nurse Practitioner Primary Care; Visit Provider Radiology Diagnostic Radiology | DX: R07.9 Chest pain, unspecified (principal) | CPT/HCPCS: 71046 ==

== ENCOUNTER 2025-01-16 15:18 | Outpatient (AMB) | payer OTHER, SELFPAY ==
--- OUTSIDE RECORDS SUMMARY | 2025-01-16 15:21 | XMS_ITS | Encounter Summary ---
Author Organization [employer] Address [address] [facility] [address] [place] [address] Care Team Providers Care Electrical Journeyman Name Role Phone Carly Vanegas Primary Care Provider Encounter Details Date Type Department Care Team (Late st Contact Info) Description 10/02/2023 Orders Only [facility] MEDICINE [address] [place], [place] [phone] Provider, MD Cecilia Social History Tobacco Use [...] Description 03/11/2025 3:00 PM EDT Office Visit [facility] ADULT DENTAL [address] [place] [address] Eilna Chaudhary 03/26/2025 9:30 AM EDT Office Visit [facility] MEDICINE [address] [place], [place] [phone] Carly Vanegas ANP [address] [place], [place] [phone] documented as of this encounter Procedures Procedure Name Priority Date/Time Associated Diagnosis Comments BI MAMMOGRAM SCREENING TOMOSYNTHESIS BILATERAL Routine 11/01/2023 1:38 PM EDT HM COLONOSCOPY Routine 04/28/2020 5:09 PM EST documented in this encounter Results * BI Mammogram Screening Tomosynthesis Bilateral (11/01/2023 1:38 PM EDT) Anatomical Region Laterality Modality Breast Bilateral Mammography 11/01/2023 1:38 PM EDT Narrative 11/28/2023 3:36 AM EDT [facility] [address] [place] [address] Mammography Report Signed Patient: Cathryn Negro MR#: [id number] : 1965 Acct:[id number] Age/Sex: 58 / F ADM Date: 11/01/23 Loc: [facility] Attending Dr: Carly Vanegas NP Ordering Physician: CARLY VANEGAS NP Results: 1Negative Date of Service: 11/01/23 Follow Up: 1 Year From Orig inal Mammogram Procedure(s): MM tomosynthesis screening BI Accession Number(s): [id number] cc: CARLY VANEGAS NP EXAMINATION: MM SCREENING [...] in OV> 11/28/23 0332 DD/ 1338 TD/TT: Stitcher Utility: Procedure Note Donotuseinterpreter, Image - 11/28/2023 [facility] [address] [place] [address] Mammography Report Signed Patient: Cathryn Negro#: [id number] : 1965Acct:[id number] Age/Sex: 58 / FADM Date: 11/01/23 Loc: [facility] Attending Dr: Carly Vanegas NP Ordering Physician: CARLY VANEGAS NPResults: 1Negative Date of Service: 11/01/23Follow Up: 1 Year From Orig inal Mammogram Procedure(s): MM tomosynthesis screening BI Accession Number(s): [id number] cc: CARLY VANEGAS NP EXAMINATION: MM SCREENING [...] in OV> 11/28/23 0332 DD/ 1338 TD/TT: Stitcher Utility: us Carly DEVI IMG BI PROCEDURES Final Result * Hm Colonoscopy (04/28/2020 5:09 PM EST) Historical Provider HEALTH MAINTENANCE Final Result documented in this encounter Visit Diagnoses Not on filedocumented in this encounter Additional Health Concerns Assessment Noted Time PHQ-9 Depression Total Score: 0 09/06/19 24 1:49 PM EDT documented as of this encounter Care Teams Electrical Journeyman Relationship Specialty Start Date End Date Carly Vanegas ANP [address] [place] [phone] PCP - General Family Medicine 05/19/20 documented as of this encounter
--- NOTE | 2025-01-16 15:22 | A.OFFVIS_ITS ---
Vital Signs 01/16/25 15:23 Height 5 ft 9 in Weight 117 lb 15.157 oz BMI 17.4 BP 102/64 Blood Pressure Location Rt brachial Position Sitting Pulse 72 Pulse Source Pulse Oximeter Pulse Oximetry (%) 99 Oxygen Delivery Method Room Air Intake Visit Reasons: Osteoporosis Intake Note: NEW Patient presents today to established treatment for Osteoporosis: Speech Therapist Technician Required: Yes Speech Therapist Technician Language: Dumper Mold Cleaner Services: Speech Therapist Technician Present Speech Therapist Technician Name: AUBREE Green Accompanied by: Self / Same As Patient Allergies No Known Allergies Allergy (Verified 01/16/25 15:25) Medication List - Last Reconciled 01/16/25 by Wilder Cantu MD calcium carbonate-vitamin D3 600 mg-20 mcg (800 unit) 1 tab PO BID meloxicam 15 mg PO DAILY multivitamin (One-A-Day Essential tablet) 1 tab PO DAILY HPI Comments Details: 59 YO Female is seen in consultation at the request of PCP for Osteoporosis. First diagnosed in just recently . Not Received treatment in the past No history of pathologic fracture or ONJ. Has several servings of dietary calcium per day in the form of milk , OJ . Not Takes Calcium supplement mg daily in divided doses. not Takes of Vitamin D daily. Denies ever using PPI, anticoagulant, antiepileptic or glucocorticoid medication. not Does weight bearing exercise . The patient engages in regular walking but does not participate in weightbearing exercises. Fracture history: No Height loss: N CARPET JACK history: Menarche at age 13- menopause at age 48 - nl menses Denies history of Kidney stones: Has family history of Osteoporosis in sisters with hip fracture. UTD on dental cleanings and sees dentist every 6 months. No planned upcoming dental work or extractions. No tabacco us or ETOH abuse DXA dated 11/16/24 : The bone mineral density of the lumbar spine is 0.766, corresponding to a T-score of -3.5, and a Z-score of -1.9. This is indicative of osteoporosis. The bone mineral density of the left total hip is 0.635, corresponding to a T-score of -3.0, and a Z-score of -1.8. This is indicative of osteoporosis. The bone mineral density of the left femoral neck is 0.628, corresponding to a T-score of -2.9, and a Z-score of -1.6. This is indicative of osteoporosis. FRACTURE RISK: The FRAX index suggests a risk of major osteoporotic fracture of 6.7%, and of hip fracture 1.9%. MM/XR DEXA axial skeleton IMPRESSION: Based on bone mineral density, and according to World Health Organization (WHO) criteria, the diagnosis is consistent with osteoporosis. Labs: The patient is a 59-year-old female presenting with osteoporosis. The osteoporosis diagnosis was made recently, and the patient has not experienced any fractures of the hip, spine, or forearm. She has been taking o [id number] multivitamins but stopped a calcium supplement due to gastrointestinal issues. The patient has a family history of osteoporosis, with her sister and mother having experienced hip fractures. She denies any personal history of fractures, kidney stones, or significant height loss. Her dietary intake includes 1% milk and orange juice, but she does not consume much fruit or juice otherwise. She has been advised to achieve a total calcium intake of 1200 mg per day, primarily through diet, supplemented as needed. The patient does not engage in weightbearing exercises but does walk regularly. She has no history of tobacco or heavy alcohol use. [facility] Medical History (Updated 01/16/25 @ 15:29 by Wilder Cantu MD) Osteoporosis Atypical squamous cells cannot exclude high grade squamous intraepithelial lesion on cytologic smear of cervix (ASC-H) Family history of colonic polyps Family history of colon cancer Migraines Chest pain Arthritis Back pain Hx of constipation Hx of iron deficiency anemia Low blood pressure Surgical History Hx of tubal ligation Hx of colonoscopy Family History Brother Colon cancer Sister Colon polyps Breast cancer Sister Breast cancer Social History Household Members: None Housing: Apartment Alcohol intake: never Patient Tobacco Use Status: Never used Tobacco Advance Directives Date on File: 10/05/23 service: No Current occupational status: unemployed Sexual orientation: Straight/Heterosexual Gender identity: Female Female Reproductive History Menstrual Age of Menarche: 13 Physical Exam Vital Signs: Last Vital Signs Pulse 72 01/16/25 15:23 BP 102/64 01/16/25 15:23 Pulse Ox 99 01/16/25 15:23 Oxygen Delivery Method Room Air 01/16/25 15:23 BMI result Body Mass Index 17.4 There are no Cushingoid features. Absence of blue sclera. Absence of kyphosis. Thyroid gland is of nl size and weighs 15 gms. There are no thyroid nodules palp ated. Lungs CTA. Heart S1 S2 Reg R/R Abdominal exam benign. Muscle strength 5/5 . Examination of spine reveals absence of tenderness on palpation Assessment & Plan Assessment & Plan (1) Osteoporosis: Code(s): M81.0 - Age-related osteoporosis without current pathological fracture Category: Medical Plan: This is a 59-year-old female with a history of osteoporosis with partial secondary workup . Plan is to complete the secondary workup 24 hour urine for calcium and creatinine, urine immunofixation. Will continue calcium and vitamin-D supplementation for total of 1200 mg of calcium and 2000 IU of vitamin D3. Assuming secondary workup is negative considering patient's age and low bone density putting her at high risk for fracture, would strongly consider use of anabolic agent initially such as Forteo, Tymlos or Evenity to be proceeded by an anti resorptive agent 1. Osteoporosis The patient has severe osteoporosis with a high risk of fractures. A workup including blood and urine tests is planned to exclude secondary causes. She is advised to increase calcium and vitamin D intake and engage in weightbearing exercises. Follow-up in four months will assess the need for anabolic therapy. I discussed with the patient the diagnosis of severe osteoporosis and the associated high risk of fractures. We reviewed the importance of calcium and vitamin D supplementation, as well as the role of weightbearing exercises in managing osteoporosis. I explained the need for a comprehensive workup to rule out secondary causes and the potential for anabolic therapy to increase bone density, followed by antiresorptive therapy to maintain it. We also discussed the importance of fall prevention and the plan for follow-up in four months to evaluate test results and treatment options. - Increase calcium intake to 1200 mg daily, primarily through diet. - Take vitamin D3 supplements as discussed. - Engage in weightbearing exercises to strengthen bones. - Ensure home environment is safe to prevent falls. - Complete blood and 24-hour urine tests as ordered. - Return for follow-up in four months. The patient had an opportunity to ask questions regarding treatment plan. The patient expressed understanding and agreement with the above treatment plan. Patient was informed and verbally consented to the use of an ambient scribe for clinic note documentation during this visit. Orders: Orders Phosphorus Today M81.0 - Age-related osteoporosis without current pathological fracture Calcium, 24 Hr Ur Today M81.0 - Age-related osteoporosis without current pathological fracture Immunofixation, Random Urine Today M81.0 - Age-related osteoporosis without current pathological fracture Creatinine, 24 Hr Group Today M81.0 - Age-related osteoporosis without current pathological fracture Coding Level of Care Code New Pt Level 4 (41042) Diagnoses Osteoporosis M81.0
[2025-01-16 15:23] VITALS: BP 102/64; PULSE 72; O2SAT 99; BMI 17.4
== END 2025-01-16 16:09 | disposition home or self-care (01) ==
LOC: HO.ENCR 15:19
PROVIDERS: PCP Nurse Practitioner Primary Care; Visit Provider Internal Medicine Endocrinology, Diabetes & Metabolism
DX: M81.0 Age-related osteoporosis without current pathological fracture (principal)
CPT/HCPCS: 99204

== ENCOUNTER → 2025-01-16 15:18 | Outpatient (BNVA) | payer OTHER, SELFPAY | PROVIDERS: PCP Nurse Practitioner Primary Care; Visit Provider Internal Medicine Endocrinology, Diabetes & Metabolism | DX: M81.0 Age-related osteoporosis without current pathological fracture (principal) | CPT/HCPCS: 99202 ==

== ENCOUNTER 2025-03-01 10:19 | Outpatient (REF) | payer OTHER, SELFPAY ==
--- NOTE | ~2025-03-01 | XR_ITS ---
EXAMINATION: XR RIBS, LEFT CLINICAL INFORMATION: neck, upper back and L rib pain x 2 weeks COMPARISON: Chest x-ray December 2024 TECHNIQUE: PA chest x-ray and 3 views of the left ribs were obtained. FINDINGS: Lungs are mildly hyperexpanded and clear. Heart size is within normal limits. No pleural line to suggest pneumothorax is identified. No rib fracture line, cortical step off, or deformity is identified. XR/XR ribs LT min 3V w CXR1V IMPRESSION: Unremarkable examination. Electronically signed by: Oliverio Sheffield MD 03/01/2025 11:00 AM EDT
--- NOTE | ~2025-03-01 | XR_ITS ---
EXAMINATION: XR THORACIC SPINE CLINICAL INFORMATION: PAIN COMPARISON: None available. TECHNIQUE: 3 views of the thoracic spine were obtained. FINDINGS: There is subtle convex right curvature of the thoracic spine. There is subtle wedging of a midthoracic vertebral body, probably T7. There is no listhesis. There is minimal degenerative change. XR/XR thoracic spine 2V IMPRESSION: Subtle wedging of T7 vertebral body consistent with age-indeterminate mild compression fracture, acute versus chronic. Electronically signed by: Oliverio Sheffield MD 03/01/2025 10:57 AM EDT
--- NOTE | ~2025-03-01 | XR_ITS ---
EXAMINATION: XR CERVICAL SPINE CLINICAL INFORMATION: neck, upper back and L rib pain x 2 weeks COMPARISON: None available. TECHNIQUE: 3 views of the cervical spine were obtained. FINDINGS: There are no prevertebral soft tissue or bony abnormalities demonstrated. No compression fractures or subluxations are identified. Alignment is maintained at the atlanto-axial articulation. There is subtle disc space narrowing at C3-4, C4-5, C5-6, and C6-7. XR/XR cervical spine 3V IMPRESSION: Minimal degenerative disc disease. Electronically signed by: Oliverio Sheffield MD 03/01/2025 10:56 AM EDT
--- OUTSIDE RECORDS SUMMARY | 2025-03-01 09:40 | XMS_ITS | Encounter Summary ---
Author Organization [employer] Address [address] [facility] [address] [place] [address] Care Team Providers Care Water Resource Agent Name Role Phone Liliana Wise Primary Care Provider [phone] Reason for Visit * Reason Comments Back Pain Arm Pain Encounter Details Date Type Department Care Team ([facility] st Contact Info) Description 03/01/2025 9:40 AM EDT Office Visit [facility] [place] [address] [place], [place] [phone] Neck pain (Primary Dx); Upper back pain; Rib pain on left side Social History Tobacco Use Types Packs/Day Years Used Date Smoking Tobacco: Never Passive Smoke Exposure: Current Smokeless Tobacco: Never Alcohol Use Standard Drinks/Week Comments Not Currently 0 (1 standard drink = 0.6 oz pur e alcohol) Depression Answer Date Recorded Patient Health Questionnaire-9 Score 2 09/05/2024 Patient Health Questionnaire-9 Score 2 09/05/2024 Last PHQ-9: Questionnaire Data Not on file 0 09/05/2024 Housing Stability Answer Date Recorded What is your housing situation today? I am not s ure 09/05/[address] you li ve. Do you have problems with any of the following? None of the above 09/05/2024 Food Insecurity Answer Date Recorded Within the past 12 months, y ou worried that your food would run out before you got money to buy more: Never True 09/05/2024 Within the past 12 months,th e food you bought just didn't last and you didn't have enough money to get more: Never True 07/2024 Transportation Answer Date Recorded In the past 12 months, has l ack of transportation kept you from medical appts, meetings, work or from getting things needed for daily living? No 09/05/2024 Utilities Answer Date Recorded In the past 12 months, has t he electric, gas, oil or water company threatened to shut off services in your home? No 09/05/2024 Depression Answer Date Recorded Patient Health Questionnaire-2 Score 2 09/05/2024 Internet Access Answer Date Recorded Internet Access Q1 No 09/05/2024 Internet Access Q2 I do not want or need it 07/2024 Comments Unknown Sex and Gender Information Value Date Recorded Sex Assigned at Female 04/05/2022 10:14 AM EDT Legal Sex Female 10:14 AM EDT Gender Identity Female 04/05/2022 10:14 AM EDT Sexual Orientation Choose not to disclose 2021 10:14 AM EDT documented as of this encounter Last Filed Vital Signs Vital Sign Reading Time Taken Comments Blood Pressure 111/61 03/01/2025 9:35 AM EDT Pulse 66 03/01/2025 9:35 AM EDT Temperature 36.2 C (97.2 F) 03/01/2025 9:35 AM EDT Respiratory Rate 17 03/01/2025 9:35 AM EDT Oxygen Saturation 97% 03/01/2025 9:35 AM EDT Inhaled Oxygen Concentration - - Weight 54.2 kg (119 lb 6.4 oz) 03/01/2025 9:35 A M EDT Height - - Body Mass Index 17.63 10/19/2024 11:02 AM EDT documented in this encounter Plan of Treatment Upcoming Encounters Date Type Department Care Team (Late st Contact Info) Description 03/11/2025 3:00 PM EDT Office Visit [facility] ADULT DENTAL [address] [place] [address] Elina Chaudhary 03/26/2025 9:30 AM EDT Office Visit [facility] MEDICINE [address] [place] [address] Liliana Wise ANP [address] [place] [address] documented as of this encounter Procedures Procedure Name Priority Date/Time Associated Diagnosis Comments XR CERVICAL SPINE 3V Routine 03/01/2025 10:49 AM EDT Neck pain Upper back pain Rib pain on left side XR RIBS 3 VIEWS LEFT W CHEST Routine 03/01/2025 10:49 AM EDT Neck pain Upper back pain Rib pain on left side XR THORACIC SPINE 2 VIEWS Routine 03/01/2025 10:49 AM EDT Neck pain Upper back pain Rib pain on left side documented in this encounter Results * XR CERVICAL SPINE 3V (03/01/2025 10:49 AM EDT) Anatomical Region Laterality Modality Abdomen Radiographic Laura ging 03/01/2025 10:4 9 AM EDT Narrative 03/01/2025 10:59 AM EDT [address] [address] XRay Report Signed Patient: Cathryn Negro MR#: [id number] : 1965 Acct:[id number] Age/Sex: 59 / F ADM Date: 03/01/25 [facility]: Trang Conn DO Ordering Physician: Trang Conn DO Date of Service: 03/01/25 Procedure(s): XR cervical spine 3V Accession Number(s): [id number] cc: Trang Conn DO Reason for Exam: neck, upper back and L rib pain x 2 weeks EXAMINATION: XR CERVICAL SPINE CLINICAL INFORMATION: neck, upper back and L rib pain x 2 weeks COMPARISON: None available. TECHNIQUE: 3 views of the cervical spine were obtained. FINDINGS: There are no prevertebral soft tissue or bony abnormalities demonstrated. No compression fractures or subluxations are identified. Alignment is maintained at the atlanto-axial articulation. There is subtle disc space narrowing at C3-4, C4-5, C5-6, and C6-7. XR/XR cervical spine 3V IMPRESSION: Minimal degenerative disc disease. Electronically signed by: Oliverio Sheffield MD 03/01/2025 10:56 AM EDT Dictated By: Oliverio Sheffield MD Signed By: <Electronically signed by Oliverio Sheffield MD in OV> 03/01/25 1056 DD/ 1049 TD/TT: 03/01/25 1050 Quantitative Analyst Marketing: Procedure Note Donotuseinterpreter, Image - 03/01/2025 [facility] [address] [place] [address] XRay Report Signed Patient: Cathryn NegroMR#: [id number] : 1965Acct:[id number] Age/Sex: 59 / FADM Date: 03/01/25 Loc: HO.[facility] Attending Dr: Trang Conn DO Ordering Physician: Trang Conn DO Date of Service: 03/01/25 Procedure(s): XR cervical spine 3V Accession Number(s): [id number] cc: Trang Conn DO Reason for Exam: neck, upper back and L rib pain x 2 weeks EXAMINATION: XR CERVICAL SPINE CLINICAL INFORMATION: neck, upper back and L rib pain x 2 weeks COMPARISON: None available. TECHNIQUE: 3 views of the cervical spine were obtained. FINDINGS: There are no prevertebral soft tissue or bony abnormalities demonstrated. No compression fractures or subluxations are identified. Alignment is maintained at the atlanto-axial articulation. There is subtle disc space narrowing at C3-4, C4-5, C5-6, and C6-7. XR/XR cervical spine 3V IMPRESSION: Minimal degenerative disc disease. Electronically signed by: Oliverio Sheffield MD 03/01/2025 10:56 AM EDT Dictated By: Oliverio Sheffield MD Signed By: <Electronically signed by Oliverio Sheffield MD in OV> 03/01/25 1056 DD/ 1049 TD/TT: 03/01/25 1050 Quantitative Analyst Marketing: Trang Conn DO IMG XR PROCEDURES Final Resu lt * XR Thoracic Spine 2 Views (03/01/2025 10:49 AM EDT) Anatomical Region Laterality Modality Spine, T-spine Radiographic Laura ging 03/01/2025 10:4 9 AM EDT Narrative 03/01/2025 11:01 AM EDT [facility] [address] [place] [address] XRay Report Signed Patient: Cathryn Negro MR#: [id number] : 1965 Acct:[id number] Age/Sex: 59 / F ADM Date: 03/01/25 Loc: [facility] Attending Dr: Trang Conn DO Ordering Physician: Trang Conn DO Date of Service: 03/01/25 Procedure(s): XR thoracic spine 2V Accession Number(s): [id number] cc: Trang Conn DO Reason for Exam: PAIN EXAMINATION: XR THORACIC SPINE CLINICAL INFORMATION: PAIN COMPARISON: None available. TECHNIQUE: 3 views of the thoracic spine were obtained. FINDINGS: There is subtle convex right curvature of the thoracic spine. There is subtle wedging of a midthoracic vertebral body, probably T7. There is no listhesis. There is minimal degenerative change. XR/XR thoracic spine 2V IMPRESSION: Subtle wedging of T7 vertebral body consistent with age-indeterminate mild compression fracture, acute versus chronic. Electronically signed by: Oliverio Sheffield MD 03/01/2025 10:57 AM EDT Dictated By: Oliverio Sheffield MD Signed By: <Electronically signed by Oliverio Sheffield MD in OV> 03/01/25 1057 DD/ 1049 TD/TT: 03/01/25 1050 Quantitative Analyst Marketing: Procedure Note Donotuseinterpreter, Image - 03/01/2025 [facility] [address] [place] [address] XRay Report Signed Patient: Cathryn NegroMR#: [id number] : 1965Acct:[id number] Age/Sex: 59 / FADM Date: 03/01/25 Loc: [facility] Attending Dr: Trang Conn DO Ordering Physician: Trang Conn DO Date of Service: 03/01/25 Procedure(s): XR thoracic spine 2V Accession Number(s): [id number] cc: Trang Conn DO Reason for Exam: PAIN EXAMINATION: XR THORACIC SPINE CLINICAL INFORMATION: PAIN COMPARISON: None available. TECHNIQUE: 3 views of the thoracic spine were obtained. FINDINGS: There is subtle convex right curvature of the thoracic spine. There is subtle wedging of a midthoracic vertebral body, probably T7. There is no listhesis. There is minimal degenerative change. XR/XR thoracic spine 2V IMPRESSION: Subtle wedging of T7 vertebral body consistent with age-indeterminate mild compression fracture, acute versus chronic. Electronically signed by: Oliverio Sheffield MD 03/01/2025 10:57 AM EDT Dictated By: Oliverio Sheffield MD Signed By: <Electronically signed by Oliverio Sheffiedl MD in OV> 03/01/25 1057 DD/ 1049 TD/TT: 03/01/25 1050 Quantitative Analyst Marketing: Trang Conn DO IMG XR PROCEDURES Final Resu lt * XR Ribs 3 Views Left w/ Chest (03/01/2025 10:49 AM EDT) Anatomical Region Laterality Modality Radiographic Laura ging 03/01/2025 10:4 9 AM EDT Narrative 03/01/2025 11:03 [place] [address] XRay Report Signed Patient: Cathryn Negro MR#: [id number] : 1965 Acct:[id number] Age/Sex: 59 / F ADM Date: 03/01/25 Loc: .[facility]X Attending Dr: Trang Conn DO Ordering Physician: Trang Conn DO Date of Service: 03/01/25 Procedure(s): XR ribs LT min 3V w CXR1V Accession Number(s): [id number] cc: Trang Conn DO Reason for Exam: neck, upper back and L rib pain x 2 weeks EXAMINATION: XR RIBS, LEFT CLINICAL INFORMATION: neck, upper back and L rib pain x 2 weeks COMPARISON: Chest x-ray December 2024 TECHNIQUE: PA chest x-ray and 3 views of the left ribs were obtained. FINDINGS: Lungs are mildly hyperexpanded and clear. Heart size is within normal limits. No pleural line to suggest pneumothorax is identified. No rib fracture line, cortical step off, or deformity is identified. XR/XR ribs LT min 3V w CXR1V IMPRESSION: Unremarkable examination. Electronically signed by: Oliverio Sheffield MD 03/01/2025 11:00 AM EDT RP Dictated By: Oliverio Sheffield MD Signed By: <Electronically signed by Oliverio Sheffield MD in OV> 03/01/25 1100 DD/ 1049 TD/TT: 03/01/25 1050 Quantitative Analyst Marketing: Procedure Note Donotuseinterpreter, Image - 03/01/[address] [address] XRay Report Signed Patient: Cathryn NegroMR#: [id number] : 1965Acct:[id number] Age/Sex: 59 / FADM Date: 03/01/25 Loc: HO.HHCX Attending Dr: Trang Conn DO Ordering Physician: Trang Conn DO Date of Service: 03/01/25 Procedure(s): XR ribs LT min 3V w CXR1V Accession Number(s): [id number] cc: Trang Conn DO Reason for Exam: neck, upper back and L rib pain x 2 weeks EXAMINATION: XR RIBS, LEFT CLINICAL INFORMATION: neck, upper back and L rib pain x 2 weeks COMPARISON: Chest x-ray December 2024 TECHNIQUE: PA chest x-ray and 3 views of the left ribs were obtained. FINDINGS: Lungs are mildly hyperexpanded and clear. Heart size is within normal limits. No pleural line to suggest pneumothorax is identified. No rib fracture line, cortical step off, or deformity is identified. XR/XR ribs LT min 3V w CXR1V IMPRESSION: Unremarkable examination. Electronically signed by: Oliverio Sheffield MD 03/01/2025 11:00 AM EDT RP Dictated By: Oliverio Sheffield MD Signed By: <Electronically signed by Oliverio Sheffield MD in OV> 03/01/25 1100 DD/ 1049 TD/TT: 03/01/25 1050 Quantitative Analyst Marketing: Trang Conn DO IMG XR PROCEDURES Final Resu lt documented in this encounter Visit Diagnoses Diagnosis Neck pain- Primary Cervicalgia Upper back pain Unspecified backache Rib pain on left side documented in this encounter Additional Health Concerns Assessment Noted Time PHQ-9 Depression Total Score: 2 09/06/19 25 4:08 PM EDT documented as of this encounter Care Teams Water Resource Agent Relationship Specialty Start Date End Date Liliana Wise ANP [address] [place] [phone] PCP - General Family Medicine 05/19/20 documented as of this encounter
--- OUTSIDE RECORDS SUMMARY | 2025-03-01 11:40 | XMS_ITS | Encounter Summary ---
Author Organization [employer] Address [address] [facility] 7t [place] [address] Care Team Providers Care Executive Housekeeper Name Role Phone Liliana Wise Primary Care Provider [phone] Encounter Details Date Type Department Care Team ([facility] Contact Info) Description 11/25/[address] [facility] MEDICINE [address] [place] [phone] Liliana Wise ANP [address] [place] [phone] Social History Tobacco Use Types Packs/Day Years Used Date Smoking Tobacco: Never Passive Smoke Exposure: Current Smokeless Tobacco: Never Alcohol Use Standard Drinks/Week Comments Not Currently 0 (1 standard drink = 0.6 oz pur e alcohol) Depression Answer Date Recorded Patient Health Questionnaire-2 Score 0 07/13/2022 Comments Unknown Sex and Gender Information Value Date Recorded Sex Assigned at Female 04/05/2022 10:14 AM EDT Legal Sex Female 10:14 AM EDT Gender Identity Female 04/05/2022 10:14 AM EDT Sexual Orientation Choose not to disclose 2021 10:14 AM EDT documented as of this encounter Plan of Treatment Upcoming Encounters Date Type Department Care Team (Late Contact Info) Description 03/11/2025 3:00 PM EDT Office Visit [facility] ADULT DENTAL [address] [place] [address] [phone] Elina Chaudhary 03/26/2025 9:30 AM EDT Office Visit [facility] MEDICINE [address] [place] [phone] Liliana Wise ANP [address] [place] [address] documented as of this encounter Procedures Procedure Name Priority Date/Time Associated Diagnosis Comments MAMMOGRAPHY Routine 10/28/2022 1:46 PM EDT documented in this encounter Results * Mammography (10/28/2022 1:46 PM EDT) Mammogram Birads 2 Anatomical Region Laterality Modality Other Historical Provider HEALTH MAINTENANCE Final Result documented in this encounter Visit Diagnoses Not on filedocumented in this encounter Care Teams Executive Housekeeper Relationship Specialty Start Date End Date Liliana Wise ANP [address] [place] [phone] PCP - General Family Medicine 05/19/20 documented as of this encounter
--- OUTSIDE RECORDS SUMMARY | 2025-03-01 11:40 | XMS_ITS | Encounter Summary ---
Author Organization [employer] Address [address] [facility] 7t [place] [address] Care Team Providers Care Wood [employer] Products Labourer Name Role Phone Carly Vanegas Primary Care Provider [phone] Encounter Details Date Type Department Care Team (Late st Contact Info) Description 10/02/2023 Orders Only [facility] MEDICINE [address] [place], [place] [phone] Provider, MD Cecilia Social History Tobacco Use [...] Description 03/11/2025 3:00 PM EDT Office Visit [facility] ADULT DENTAL [address] [place] [address] Elina Chaudhary 03/26/2025 9:30 AM EDT Office Visit [facility] MEDICINE [address] [place], [place] [phone] Carly Vanegas ANP [address] [place], [place] [phone] documented as of this encounter Procedures Procedure Name Priority Date/Time Associated Diagnosis Comments BI MAMMOGRAM SCREENING TOMOSYNTHESIS BILATERAL Routine 11/01/2023 1:38 PM EDT HM COLONOSCOPY Routine 04/28/2020 5:09 PM EST documented in this encounter Results * BI Mammogram Screening Tomosynthesis Bilateral (11/01/2023 1:38 PM EDT) Anatomical Region Laterality Modality Breast Bilateral Mammography 11/01/2023 1:38 PM EDT Narrative 11/28/2023 3:36 AM EDT [facility] [address] [place] [address] Mammography Report Signed Patient: Cathryn Negro MR#: [id number] : 1965 Acct:[id number] Age/Sex: 58 / F ADM Date: 11/01/23 Loc: [facility] Attending Dr: Carly Vanegas NP Ordering Physician: CARLY VANEGAS NP Results: 1Negative Date of Service: 11/01/23 Follow Up: 1 Year From Orig inal Mammogram Procedure(s): MM tomosynthesis screening BI Accession Number(s): [id number] cc: CARLY VANEGAS NP EXAMINATION: MM SCREENING [...] in OV> 11/28/23 0332 DD/ 1338 TD/TT: Magazine Writer: Procedure Note Donotuseinterpreter, Image - 11/28/2023 [facility] [address] [place] [address] Mammography Report Signed Patient: Cathryn Negro#: [id number] : 1965Acct:[id number] Age/Sex: 58 / FADM Date: 11/01/23 Loc: [facility] Attending Dr: Carly Vanegas NP Ordering Physician: CARLY VANEGAS NPResults: 1Negative Date of Service: 11/01/23Follow Up: 1 Year From Orig inal Mammogram Procedure(s): MM tomosynthesis screening BI Accession Number(s): [id number] cc: CARLY VANEGAS NP EXAMINATION: MM SCREENING [...] in OV> 11/28/23 0332 DD/ 1338 TD/TT: Magazine Writer: us Carly DEVI IMG BI PROCEDURES Final Result * Hm Colonoscopy (04/28/2020 5:09 PM EST) Historical Provider HEALTH MAINTENANCE Final Result documented in this encounter Visit Diagnoses Not on filedocumented in this encounter Additional Health Concerns Assessment Noted Time PHQ-9 Depression Total Score: 0 09/06/19 24 1:49 PM EDT documented as of this encounter Care Teams [employer] Labourer Relationship Specialty Start Date End Date Carly Vanegas ANP [address] [place] [phone] PCP - General Family Medicine 05/19/20 documented as of this encounter
--- OUTSIDE RECORDS SUMMARY | 2025-03-01 11:40 | XMS_ITS | Encounter Summary ---
Author Organization [employer] Address 75 [facility] 7t [place] [address] Care Team Providers Care Head Wrestling Coach Name Role Phone Liliana Wise Primary Care Provider [phone] Reason for Visit * Reason Onset Date Comments Hospital Follow-up 10/05/2023 Encounter Details Date Type Department Care Team ([facility] st Contact Info) Description 10/05/2023 Telephone [facility] MEDICINE [address] [place], [place] [phone] Liliana Wise ANP [address] [place] [address] Hospital Follow-up Social History Tobacco Use Types Packs/Day Years [...] AM EDT documented as of this encounter Miscellaneous Notes * Telephone Encounter - Maia He - 10/05/2023 10:37 AM EDT Tc from pt requesting a HDF appt. [facility] Date of admission: 10/01 Discharge date: 10/03 Diagnosed: Weakness documented in this encounter Plan of Treatment Upcoming Encounters Date Type Department Care Team (Late st Contact Info) Description 03/11/2025 3:00 PM EDT Office Visit [facility] ADULT DENTAL [address] [place] [address] Elina Chaudhary 03/26/2025 9:30 AM EDT Office Visit [facility] MEDICINE [address] [place] [address] Liliana Wise ANP [address] [place] [address] documented as of this encounter Visit Diagnoses Not on filedocumented in this encounter Additional Health Concerns Assessment Noted Time PHQ-9 Depression Total Score: 0 09/06/19 24 1:49 PM EDT documented as of this encounter Care Teams Head Wrestling Coach Relationship Specialty Start Date End Date Liliana Wise ANP [address] [place] [phone] PCP - General Family Medicine 05/19/20 documented as of this encounter
--- OUTSIDE RECORDS SUMMARY | 2025-03-01 11:40 | XMS_ITS | Encounter Summary ---
Author Organization [employer] [facility] Address [address] [place] [address] 7t [place] [address] Care Team Providers Care Fruit Harvester Machine Operator Name Role Phone Liliana Wise Primary Care Provider [phone] Encounter Details Date Type Department Care Team (Latest Contact Info) Description 01/29/2021 Abstract [facility] Dental, Provider, DDS Social History Tobacco Use Types Packs/Day Years Used Date Smoking Tobacco: Never Assessed Comments Unknown Sex and Gender Information Value [...] Description 03/11/2025 3:00 PM EDT Office Visit [facility] ADULT DENTAL [address] [place] [address] Elina Chaudhary 03/26/2025 9:30 AM EDT Office Visit [facility] MEDICINE [address] [place] [address] Liliana Wise ANP [address] [place] [address] documented as of this encounter Visit Diagnoses Not on filedocumented in this encounter Care Teams Fruit Harvester Machine Operator Relationship Specialty Start Date End Date Liliana Wise ANP [address] [place] [address] PCP - General Family Medicine 05/19/20 documented as of this encounter
--- OUTSIDE RECORDS SUMMARY | 2025-03-01 11:40 | XMS_ITS | Encounter Summary ---
Author Organization [employer] Address [address] [facility] 7t [place] [address] Care Team Providers Care Asbestos Pipe Supervisor Name Role Phone Liliana Wise Primary Care Provider [phone] Reason for Visit * Reason Onset Date Comments Medication Question 02/26/2025 Encounter Details Date Type Department Care Team ([facility] st Contact Info) Description 02/26/2025 Telephone [facility] MEDICINE [address] [place], [place] [phone] Liliana Wise ANP [address] [place] [address] Medication Question Social History Tobacco Use Types Packs/Day Years [...] encounter Miscellaneous Notes * Telephone Encounter - Lisandro Gao - 02/26/2025 2:00 PM EDT TC from pt reports getting prescribed Calcium Carb-Cholecalciferol (Calcium 600+D3) 600-20 MG-MCG tablet but reports gets a upset stomach. Pt wants to get prescribed just Vitamin D3 documented in this encounter Plan of Treatment Upcoming Encounters Date Type Department Care Team (Late st Contact Info) Description 03/11/2025 3:00 PM EDT Office Visit [facility] ADULT DENTAL [address] [place] [address] Elina Chaudhary 03/26/2025 9:30 AM EDT Office Visit [facility] MEDICINE [address] [place] [address] Liliana Wise ANP [address] [place] [address] documented as of this encounter Visit Diagnoses Not on filedocumented in this encounter Additional Health Concerns Assessment Noted Time PHQ-9 Depression Total Score: 2 09/06/19 25 4:08 PM EDT documented as of this encounter Care Teams Asbestos Pipe Supervisor Relationship Specialty Start Date End Date Liliana Wise ANP [address] [place] [phone] PCP - General Family Medicine 05/19/20 documented as of this encounter
--- OUTSIDE RECORDS SUMMARY | 2025-03-01 11:40 | XMS_ITS | Encounter Summary ---
Author Organization [employer] Address [address] [facility] 7t [place] [address] Care Team Providers Care Lieutenant Firefighter Name Role Phone Liliana Wise Primary Care Provider [phone] Encounter Details Date Type Department Care Team (Latest Contact Info) Description 03/01/2025 Travel Social History Tobacco Use Types Packs/Day Years [...] Description 03/11/2025 3:00 PM EDT Office Visit [facility] ADULT DENTAL [address] [place] [address] Elina Chaudhary 03/26/2025 9:30 AM EDT Office Visit [facility] MEDICINE [address] [place] [address] Liliana Wise ANP [address] [place] [address] documented as of this encounter Visit Diagnoses Not on filedocumented in this encounter Additional Health Concerns Assessment Noted Time PHQ-9 Depression Total Score: 2 09/06/19 25 4:08 PM EDT documented as of this encounter Care Teams Lieutenant Firefighter Relationship Specialty Start Date End Date Liliana Wise ANP [address] [place] [phone] PCP - General Family Medicine 05/19/20 documented as of this encounter
--- OUTSIDE RECORDS SUMMARY | 2025-03-01 11:40 | XMS_ITS | Clinical Summary ---
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 1 Active omeprazole (PriLOSEC) [address] capsule TIGRE PARHAM TODOS LOS D BEFORE A MEAL 2 Active Multiple Vitamin (multivitamin) capsule Take 1 capsule by mouth Once per day. Active cyclobenzaprine (Flexeril) 10 MG tabletIndications :Left hip pain One tab po at bedtime prn pain of muscles, do not drive with medicaion 5 tablet 5 Active Calcium Carb-Cholecalcife rol (Calcium 600+D3) 600-20 MG-MCG tabletIndications :Age-related osteoporosis without current pathological fracture Take 1 tablet by mouth 2 times daily. 180 tablet 1 5 Active Active Problems Problem Noted Date Diagnosed Date Otitis of right ear 10/27/2024 Assessment & Plan (10/27/2024 10:52 AM EDT): I prescribed Augmentin for 7 days She may take acetaminophen as needed for pain Report back if symptoms are persistent or worse Left hip pain 09/12/2024 Assessment & Plan (09/12/2024 2:25 PM EDT): Upon pt description denied any numbness and reported more of a heaviness/pain at the left hip, exacerbated with walking. Likely musculoskeletal, less likely inflammatory, versus bursitis of the hip. -ordered XR of left hip 09/12/24 -prescribed cyclobenzaprine (Flexeril) 10 MG 09/12/24 Cardiovascular event risk 08/30/2022 Overview (08/30/2022): ASCVD risk Low 1.5% 08/2022 Healthcare maintenance 07/13/2022 Overview (07/13/2022): Eye exam: refer 07/13/22 Colon ca screening (45+): 05/2020, repeat in 2024 d/t fam hx colon ca in brother at 52 Mammo (40-74, or ongoing in >10yr life expectancy): BIRADS 3 04/2022, repeat Jan 2023 DEXA (F 65+, M 70+; with risk factors, earlier): NA Pap (21-65 & ongoing in >10yr life expectancy): follows w/ [facility] [employer] and is UTD IZs including COVID-19 vaccines: declines flu, due for shingrix 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 Migraine 07/17/2018 Overview (07/13/2022): Tylenol prn, declined Fioricet refill 07/2022 Vitamin D deficiency 05/31/2017 Insomnia 05/31/2017 Ankle pain 05/31/2017 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 Hemorrhoids 05/31/2017 Non-cardiac chest pain 02/11/2017 Overview (07/13/2022): Normal echo 05/2021 No ischemia on stress test 2016 Better w/ PPI, now resolved Encounters Date Type Department Care Team Description 03/01/2025 9:40 AM EDT Office Visit [facility] [address], [place] [phone] Neck pain (Primary Dx); Upper back pain; Rib pain on left side 03/01/2025 Travel 02/26/2025 Telephone [facility] MEDICINE [address] [place] [address] Carly Vanegas ANP Medication Question 01/08/2025 Telephone [facility] MED[facility] [address], [place] [phone] Carly Vanegas ANP March recall 12/26/2024 Telephone [facility] MED[facility] [address] [place] [address] Carly Vanegas ANP Call Back Request 12/11/2024 Results Follow-Up [facility] [address] [place] [address] Kyung Morgan MD XR Chest 2 Views 12/11/2024 Orders Only [facility] External Provider, [facility] 12/03/2024 Telephone [facility] [address] [place] [address] Carly Vanegas ANP Nurse Triage from Last 3 Months Immunizations Immunization Administration Dates Next Due Hep B, adult 11/10/2010,05/20/2010,12/29/2001 Influenza injectable quadriv alent preservative free 04/04/2020 Influenza, IIV3, injectable 06/10/2014, 9 Moderna Covid-19 Vaccine 12+ 09/11/2020,08/15/19 21 TD (adult), 2 Lf tetanus tox oid, preservative free, adsorbed 06/30/2020,05/02/1995 Tdap 05/20/2010 Family History Medical History Relation Name Comments Coronary artery disease Brother Coronary artery disease Father Brain cancer Mother Coronary artery disease Mother Breast cancer Sister Relation Name Status Comments Brother Father Mother Sister Social History Tobacco Use Types Packs/Day Years Used Date Smoking Tobacco: Never Passive Smoke Exposure: Current Smokeless Tobacco: Never Tobacco Cessation:Counseling Given: Not Answered Alcohol Use Standard Drinks/Week Comments Not Currently [...] not to disclose 2021 10:14 AM EDT Last Filed Vital Signs Vital Sign Reading [...] oz) 03/01/2025 9:35 A M EDT Height 175.3 cm (5' 9 ) 10/19/2024 11:02 AM EDT Body Mass Index 17.63 10/19/2024 11:02 AM EDT Plan of Treatment Upcoming Encounters Date Type Department Care Team (Late st Contact Info) Description 03/11/2025 3:00 PM EDT Office Visit [facility] ADULT DENTAL [address] [place] [address] Elina Chaudhary 03/26/2025 9:30 AM EDT Office Visit [facility] MEDICINE [address] [place] [address] Carly Vanegas ANP [address] [place] [address] Health Maintenance Due Date Last Done Comments CT Colonography 1965 FIT DNA/Cologuard 1965 FIT 1965 FOBT 1965 Sigmoidoscopy 1965 Disability Screening 1965 Pneumococcal Vaccine: 50+ Years (1 of 1 - PCV) 2014 Zoster Vaccines (1 of 2) 2014 RSV Patients and Patients Aged 60 years or older (1 - Risk 60-74 years 1-dose series) 2024 Mammogram 10/31/2024 11/01/2023, 10/05, 10/28/2022, Additional history exists COVID-19 Vaccine ( - 2024- season) 2025 09/11/2020, 08/14/2020 Influenza Vaccine (#1) 2025 , 06/10/2014, 05/21/2009 Dental Oral Exam 02/28/2025 08/27/2024, , 01/26/2021, Additional history exists Dental Prophylaxis 02/28/2025 08/27/2024, 0 02/29/2024, 01/29/2021, Additional history exists Colonoscopy 04/28/2025 04/28/2020 Colorectal Cancer Screening 04/28/2025 Dental X-Ray: Bitewings 08/28/2025 08/28/19 25, 01/26/2021, 01/31/2015, Additional history exists Alcohol/Substance Use Screening 09/05/2025 09/05/2024 Depression Screening 09/05/2025 09/05/2024, 09/06/19 SDOH Screening 09/05/2025 09/05/2024 Pap Smear 09/27/2025 09/27/2022, 08/11/2022 Tobacco Screening 11/16/2025 11/16/2024 Cervical Cancer Screening 08/12/2027 HPV/Cotest 08/12/2027 08/11/2022 Dental X-Ray: Full Mouth 08/29/2027 025, 01/26/2021, 03/01/2013 DTaP/Tdap/Td Vaccines (3 - Td or Tdap) 06/30/2030 06/30/2020, 05/20/2010, 05/02/1995 Hepatitis B Vaccines Completed 11/10/2010, 05/20/2010, 12/29/2001 HIV Screening Completed 08/16/2022 Hepatitis C Screening Completed 08/16/2022 HIB Vaccines Aged Out No longer eligi ble based on patient's age to complete this topic HPV Vaccines Aged Out No longer eligi ble based on patient's age to complete this topic Hepatitis A Vaccines Aged Out No long er eligible based on patient's age to complete this topic IPV Vaccines Aged Out No longer eligi ble based on patient's age to complete this topic Meningococcal B Vaccine Aged Out No l onger eligible based on patient's age to complete this topic Meningococcal Vaccine Aged Out No torsten amor eligible based on patient's age to complete this topic RSV under 20 months Aged Out No longe r eligible based on patient's age to complete this topic Rotavirus Vaccines Aged Out No longer eligible based on patient's age to complete this topic Procedures Procedure Name Priority Date/Time Associated Diagnosis [...] back pain Rib pain on left side HIGH SENSITIVITY TROPONIN I Routine 12/11/2024 11:56 AM EDT COMPREHENSIVE METABOLIC PANEL Routine 12/11/2024 11:56 AM EDT APTT Routine 12/11/2024 11:56 AM EDT PROTHROMBIN TIME-INR Routine 12/11/2024 11:56 AM EDT CBC WITH AUTO DIFFERENTIAL Routine 12/11/2024 11:56 AM EDT XR CHEST 2 VIEWS Routine 12/11/2024 10:5 2 AM EDT PROPHYLAXIS - ADULT Routine 08/27/2024 3 :00 PM EDT Dental calculus INTRAORAL - COMPLETE SERIES OF RADIOGRAPHIC IMAGES Routine 08/27/2024 3:00 PM EDT PERIODIC ORAL EVALUATION - ESTABLISHED PATIENT Routine 08/27/2024 3:00 PM EDT BI MAMMOGRAM SCREENING TOMOSYNTHESIS BILATERAL Routine 11/01/2023 1:38 PM EDT PAP SMEAR Routine 09/27/2022 1:15 PM EDT HEPATITIS C AB W/REFL TO HCV RNA, QN, PCR Routine 08/16/2022 10:51 AM EDT Routine screening for STI (sexually transmitted infection) HIV 1/2 ANTIGEN/ANTIBODY, FOURTH GENERATION W/RFL Routine 08/16/2022 10:51 AM EDT Routine screening for STI (sexually transmitted infection) HPV MRNA E6/E7 REFLEX TO HPV 16, 18/45 Routine 08/11/2022 9:53 AM EST HM COLONOSCOPY Routine 04/28/2020 5:09 PM EST from Last 3 Months or Most Recently Relevant to Health Maintenance Results * XR CERVICAL SPINE 3V (03/01/2025 10:49 AM EDT) Anatomical Region Laterality Modality Abdomen Radiographic Laura ging 03/01/2025 10:4 9 AM EDT Narrative 03/01/2025 10:59 AM EDT [address] [address] XRay Report Signed Patient: Cathryn Negro MR#: [id number] : 1965 Acct:[id number] Age/Sex: 59 / F ADM Date: 03/01/25 Loc: HO.HHCX Attending Dr: Trang Conn DO Ordering Physician: Trang Conn DO Date of Service: 03/01/25 Procedure(s): XR cervical spine 3V Accession Number(s): [id number] cc: Trang Conn DO Reason for Exam: [...] Oliverio Sheffield MD 03/01/2025 10:56 AM EDT RP Dictated By: Oliverio Sheffield MD Signed By: <Electronically signed by Oliverio Sheffield MD in OV> 03/01/25 1056 DD/ 1049 TD/TT: 03/01/25 1050 Ware Tester: Procedure Note Donotuseinterpreter, Image - 03/01/[address] [address] XRay Report Signed Patient: Cathryn NegroMR#: [id number] : 1965Acct:[id number] Age/Sex: 59 / FADM Date: 03/01/25 Loc: HO.HHCX Attending Dr: Trang Conn DO Ordering Physician: Trang Conn DO Date of Service: 03/01/25 Procedure(s): XR cervical spine 3V Accession Number(s): [id number] cc: Trang Conn DO Reason for Exam: [...] Oliverio Sheffield MD 03/01/2025 10:56 AM EDT RP Dictated By: Oliverio Sheffield MD Signed By: <Electronically signed by Oliverio Sheffield MD in OV> 03/01/25 1056 DD/ 1049 TD/TT: 03/01/25 1050 Ware Tester: us Trang Conn DO IMG XR PROCEDURES Final Resu lt * XR Ribs 3 Views Left w/ Chest (03/01/2025 10:49 AM EDT) Anatomical Region Laterality Modality Radiographic Laura ging 03/01/2025 10:4 9 AM EDT Narrative 03/01/2025 11:03 [place] [address] XRay Report Signed Patient: Cathryn Negro MR#: [id number] : 1965 Acct:[id number] Age/Sex: 59 / F ADM Date: 03/01/25 Loc: HO.HHCX Attending Dr: Trang Conn DO Ordering Physician: Trang Conn DO Date of Service: 03/01/25 Procedure(s): XR ribs LT min 3V w CXR1V Accession Number(s): [id number] cc: rTang Conn DO Reason for Exam: neck, upper [...] 03/01/25 1100 DD/ 1049 TD/TT: 03/01/25 1050 Ware Tester: Procedure Note Donotuseinterpreter, Image - 03/01/[address] [address] XRay Report Signed Patient: Cathryn NegroMR#: [id number] : 1965Acct:[id number] Age/Sex: 59 / FADM Date: 03/01/25 Loc: .HHCX Attending Dr: Trang Conn DO Ordering Physician: Trang Conn DO Date of Service: 03/01/25 Procedure(s): XR ribs LT min 3V w CXR1V Accession Number(s): [id number] cc: Trang Conn DO Reason for Exam: [...] 03/01/25 1100 DD/ 1049 TD/TT: 03/01/25 1050 Ware Tester: Trang Conn DO IMG XR PROCEDURES Final Resu lt * XR Thoracic Spine 2 Views (03/01/2025 10:49 AM EDT) Anatomical Region Laterality Modality Spine, T-spine Radiographic Laura ging 03/01/2025 10:4 9 AM EDT Narrative 03/01/2025 11:01 AM EDT [facility] [address] [place] [address] XRay Report Signed Patient: Cathryn Negro MR#: [id number] : 1965 Acct:[id number] Age/Sex: 59 / F ADM Date: 03/01/25 [facility]: Trang Conn DO Ordering Physician: Trang Conn DO Date of Service: 03/01/25 Procedure(s): XR thoracic spine 2V Accession Number(s): [id number] cc: Trang Conn DO Reason for Exam: [...] Oliverio Sheffield MD 03/01/2025 10:57 AM EDT RP Dictated By: Oliverio Sheffield MD Signed By: <Electronically signed by Oliverio Sheffield MD in OV> 03/01/25 1057 DD/ 1049 TD/TT: 03/01/25 1050 Ware Tester: Procedure Note Donotuseinterpreter, Image - 03/01/2025 [facility] [address] [place] [address] XRay Report Signed Patient: Cathryn NegroMR#: [id number] : 1965Acct:[id number] Age/Sex: 59 / FADM Date: 03/01/25 Loc: HO.HHCX Attending Dr: Trang Conn DO Ordering Physician: Trang Conn DO Date of Service: 03/01/25 Procedure(s): XR thoracic spine 2V Accession Number(s): [id number] cc: Trang Conn DO Reason for Exam: [...] 03/01/25 1057 DD/ 1049 TD/TT: 03/01/25 1050 Ware Tester: us Trang Conn DO IMG XR PROCEDURES Final Resu lt * High Sensitivity Troponin I (12/11/2024 11:56 AM EDT) TROPONIN I HIGH SENSITIVITY <2.7 <3.5 - 17.0 ng/L [facility] Comment:The Duran high sens itivity Troponin-I results should beused in conjunction with other diagnostic information suchas ECG, clinical observations and information, and patientsymptoms to aid in the diagnosis of [place]. 12/11/2024 11:5 6 AM EDT 12/11/2024 11:59 AM EDT us Generic External Data Provider LAB BLOOD ORDERAB LES Final Result [facility] [address] [place] [address] [phone] * (ABNORMAL) CBC auto differential (12/11/2024 11:56 AM EDT) White Blood Count 5.6 4.8 - 10.8 X10*3/uL [facility] Red Blood Count 4.40 4.20 - 5.50 X10*6/uL [facility] Hemoglobin 11.9(L) 12.0 - 16.0 g/dl [facility] Hematocrit 36.2(L) 37.0 - 47.0 % [facility] Mean Corpuscular Volume 82.3 80.0 - 98.0 fL [facility] Mean Corpuscular Hemoglobin 27.0 27.0 - 33.0 pg [facility] Mean Corpuscular HGB Conc 32.9 31.0 - 35.0 g/dl [facility] Red Cell Distribution Width 12.5 11.0 - 16.0 % [facility] Platelet Count 190 160 - 400 X10*3/uL [facility] Mean Platelet Volume 9.7 9.4 - 12.3 fL [facility] Neutrophils Percent Auto 65.5 45 - 73 % [facility] Imm Gran Pct Auto 0.0 0.0 - 0.4 % [facility] Lymphocytes Percent Auto 21.8 20 - 40 % [facility] Monocytes Percent Auto 5.2 2 - 11 % [facility] Eosinophils Percent Auto 6.8(H) 0 - 4 % [facility] Basophils Percent Auto 0.7 0 - 2 % [facility] NRBC Pct Auto 0.0 0.0 - 0.2 /100WBC [facility] Neutrophils Absolute Auto 3.7 2.0 - 8.3 x10*3/uL [facility] Imm Gran Abs Auto 0.00 0.00 - 0.03 X10*3/uL [facility] Lymphocytes Absolute Auto 1.2 1.2 - 4.9 X10*3/uL [facility] Monocytes Absolute Auto 0.3 0.1 - 1.2 X10*3/uL [facility] Eosinophils Absolute Auto 0.4 0.0 - 0.4 X10*3/uL [facility] Basophils Absolute Auto 0.0 0.0 - 0.2 X10*3/uL [facility] NRBC Abs Auto 0.000 0.0 - 0.012 X10*3/uL [facility] 12/11/2024 11:5 6 AM EDT 12/11/2024 11:59 AM EDT Generic External Data Provider LAB BLOOD ORDERAB LES Edited Result - Final Performing Organization Address [facility]/ZIP Co de Phone Number [facility] [address] [place] [phone] * Partial Thromboplastin Time, Activated (APTT) (12/11/2024 11:56 AM EDT) Partial Thromboplastin Time 33.0 26.0 - 36.8 SEC [facility] Comment:For information rega rding the monitoring of direct thrombininhibitors, please refer to Pharmacy. 12/11/2024 11:5 6 AM EDT 12/11/2024 11:59 AM EDT us Generic External Data Provider LAB BLOOD ORDERAB LES Final Result Performing Organization Address [facility] Co de Phone Number [facility] [address] [place] [phone] * Prothrombin Time-INR (12/11/2024 11:56 AM EDT) Prothrombin Time 12.3 10.9 - 12.4 SEC [facility] INTERNATIONAL NORM RATIO 1.1 0.9 - 1.1 [facility] Comment:INTERNATIONAL NORMAL IZED RATIO (INR) REFERENCE RANGES Reference RangeFor patients not on anticoagulant therapy: 0.9 - 1.1INR ranges for oral anticoagulanttherapy:For prevention and treatment of venous thrombosis and pulmonary embolism: 2.0 - 3.0For acute myocardial infarction with aspirin therapy: 2.0 - 3.0For acute myocardial infarction without aspirin therapy: 3.0 - 4.0For patients with mechanical prosthetic heart valves: 2.5 - 3.5 12/11/2024 11:5 6 AM EDT 12/11/2024 11:59 AM EDT us Generic External Data Provider LAB BLOOD ORDERAB LES Final Result [facility] [address] [place] [phone] * (ABNORMAL) Comprehensive Metabolic Panel (12/11/2024 11:56 AM EDT) Sodium 140 135 - 145 mmol/L [facility] Potassium 3.8 3.3 - 5.1 mmol/L [facility] Chloride 106 96 - 108 mmol/L [facility] Carbon Dioxide 28 22 - 29 mmol/L [facility] Anion Gap 10(L) 12 - 20 [facility] Urea Nitrogen (BUN) 13 9 - 16 mg/dL [facility] Creatinine, Serum 0.82 0.5 - 1.4 mg/dL [facility] Creatinine Clr Calc Pharmacy 60.2 [facility] Comment:Provided height and weight: 175.26 cm,52.3 kg.eGFR (calculated from the MDRD study equation) and eCrCl(calculated from the Cockcroft-Gault equation) are based ondifferent parameters and may not yield comparable results.If eCrCl result is absurd, please check patient'sheight/weight. Estimated Glomerular Filt Rate >60 [facility] Comment:Chronic Kidney Disea se: Estimated GFR < 60 mL/min/1.39p4Vdvycm Kidney Disease: Estimated GFR < 15 mL/min/1.73m2 Glucose 92 60 - 115 mg/dL [facility] Calcium 9.3 8.4 - 10.2 mg/dL [facility] Bilirubin, Total 0.3 0.0 - 1.0 mg/dL [facility] Aspartate Amino Transferase 24 5 - 31 U/L [facility] Alanine Aminotransferase 24 0 - 31 U/L [facility] Total Protein 7.4 6.5 - 8.0 g/dL [facility] Albumin Level 4.7 3.5 - 5.0 g/dL [facility] Alkaline Phosphatase 69 39 - 117 U/L [facility] 12/11/2024 11:5 6 AM EDT 12/11/2024 11:59 AM EDT us Generic External Data Provider LAB BLOOD ORDERAB LES Final Result Performing Organization Address City/State/[facility] Co de Phone Number [facility] [address] [place] [phone] * XR Chest 2 Views (12/11/2024 10:52 AM EDT) Anatomical Region Laterality Modality Chest Radiographic Laura ging 12/11/2024 10:5 2 AM EDT Narrative 12/11/2024 11:58 AM EDT [address] [address] XRay Report Signed Patient: Cathryn Negro MR#: [id number] : 1965 Acct:[id number] Age/Sex: 59 / F ADM Date: 12/11/24 Loc: HO.ED Attending Dr: Ordering Physician: Roland Torrez Date of Service: 12/11/24 Procedure(s): XR chest 2V Accession Number(s): [id number] cc: Roland Torrez; CARLY VANEGAS NP EXAMINATION: XR CHEST CLINICAL INFORMATION: Chest pain COMPARISON: October 03, 2023 TECHNIQUE: 2 views of the chest were obtained. FINDINGS: There is mild apical thickening. There is hyperexpansion of the lungs. Pulmonary vessels are distinct and of normal caliber. Cardiac and hilar structures are within normal limits. There is no sign of pleural effusion. XR/XR chest 2V IMPRESSION: No acute disease Electronically signed by: Oliverio Sheffield MD 12/11/2024 11:55 AM EDT RP Dictated By: Oliverio Sheffield MD Signed By: <Electronically signed by Oliverio Sheffield MD in OV> 12/11/24 1155 DD/ 1052 TD/TT: 12/11/24 1151 Ware Tester: Procedure Note Donotuseinterpreter, Image - 12/11/2024 [place] [address] XRay Report Signed Patient: Libby Negro#: [id number] : 1965Acct:[id number] Age/Sex: 59 / FADM Date: 12/11/24 Loc: .ED Attending Dr: Ordering Physician: Roland Torrez Date of Service: 12/11/24 Procedure(s): XR chest 2V Accession Number(s): [id number] cc: Roland Torrez; CARLY VANEGAS NP EXAMINATION: XR CHEST CLINICAL INFORMATION: Chest pain COMPARISON: October 03, 2023 TECHNIQUE: 2 views of the chest were obtained. FINDINGS: There is mild apical thickening. There is hyperexpansion of the lungs. Pulmonary vessels are distinct and of normal caliber. Cardiac and hilar structures are within normal limits. There is no sign of pleural effusion. XR/XR chest 2V IMPRESSION: No acute disease Electronically signed by: Oliverio Sheffield MD 12/11/2024 11:55 AM EDT RP Dictated By: Oliverio Sheffield MD Signed By: <Electronically signed by Oliverio Sheffield MD in OV> 12/11/24 1155 DD/ 1052 TD/TT: 12/11/24 1151 Ware Tester: [facility] External Provider IMG XR PROCEDURES Edited Result - Final * BI Mammogram Screening Tomosynthesis Bilateral (11/01/2023 1:38 PM EDT) Anatomical Region Laterality Modality Breast Bilateral Mammography 11/01/2023 1:38 PM EDT Narrative 11/28/2023 3:36 AM EDT [address] [place] [address] Mammography Report Signed Patient: Cathryn Negro MR#: [id number] : 1965 Acct:[id number] Age/Sex: 58 / F ADM Date: 11/01/23 Loc: HO.MAMMO Attending Dr: Carly Vanegas NP Ordering Physician: CARLY VANEGAS NP Results: 1Negative Date of Service: 11/01/23 Follow Up: 1 Year From Orig inal Mammogram Procedure(s): MM tomosynthesis screening BI Accession Number(s): [id number] cc: CARLY VANEGAS NP EXAMINATION: MM SCREENING [...] in OV> 11/28/23 0332 DD/ 1338 TD/TT: Ware Tester: Procedure Note Donotuseinterpreter, Image - 11/28/2023 [facility] [address] [place] [address] Mammography Report Signed Patient: Cathryn NegroMR#: [id number] : 1965Acct:[id number] Age/Sex: 58 / FADM Date: 11/01/23 Loc: HO.MAMMO Attending Dr: Carly Vanegas NP Ordering Physician: CARLY VANEGAS NPResults: 1Negative Date of Service: 11/01/23Follow Up: 1 Year From Orig inal Mammogram Procedure(s): MM tomosynthesis screening BI Accession Number(s): [id number] cc: CARLY VANEGAS NP EXAMINATION: MM SCREENING [...] in OV> 11/28/23 0332 DD/ 1338 TD/TT: Ware Tester: Carly Vanegas ANP IMG BI PROCEDURES Final Result * Pap Smear (09/27/2022 1:15 PM EDT) 09/27/2022 1:15 PM EDT 09/28/2022 8:45 AM EDT [facility] - 10/04/2022 2:11 PM EDT ----- ------- Name: Cathryn Osorio Age/Sex: 57/F : 1965 Unit#: [id number] Attend Dr: Daniel Jerome MD Re09/27/22 Status: DEP REF Location: [facility] Disch: ----- ------- SPEC : [id number] RECD: 09/28/22 STATUS: MIKAYLA DAILY NUM: [id number] YAZAN: 09/27/[address] [facility] [address]: Daniel Jerome MD ENTERED: 09/28/2240 SP TYPE: Pap Smr OTHR DR: CARLY VANEGAS NP ORDERED: Pap Smear Interpretation Satisfactory for evaluation. Negative for intraepithelial lesion or malignancy. Atrophic. Clinical Information LMP: Post menopause Previous PAP test: 08/2022, Unknown Material Received ThinPrep-Cervical Copies To: CARLY VANEGAS NP [address] [place] [address] Daniel Jerome MD [address] [place], [place] [address] [address] ----- ------- Signed (signature on file) Evette Montesinos 10/04/22 1411 ----- ------- END OF REPORT [facility] External Provider LAB [facility] JHONY ORDERABLES Final Result Performing Organization Address City/[facility] Co de Phone Number [facility] [address] [place] [phone] * Hepatitis C Antibody with Reflex to HCV, RNA, Quantitative, Real-Time PCR (08/16/2022 10:51 AM EDT) Pathologist [facility] Hepatitis C Antibody NON-REACT CALVIN NON-REACT CALVIN [facility] Index 0.06 <1.00 [facility] Comment: HCV antibody was non-reactive. There is no laboratory evidence of HCV infection. In most cases, no further action is required. However, if recent HCV exposure is suspected, a test for HCV RNA (test code 04229) is suggested. For additional information please refer to http://education.aiHit/faq/QWD97m7 (This link is being provided for informational/ educational purposes only.) Blood Venous blood specimen / Unknown 08/16/2022 10:51 AM EDT 08/16/2022 10:52 AM EDT Narrative [facility] - 08/16/2022 10:01 PM EDT FASTING:YES FASTING: YES [facility] LAB BLOOD ORDERABLES Final Resul t Performing Organization Address City/[facility]/ZIP Co de Phone Number [facility] [address] [place] [address], [place] [phone] [email or web address] [address] [facility], ([address]) [place] [phone] * HIV-1/2 Antigen and Antibodies, Fourth Generation, with Reflexes (08/16/2022 10:51 AM EDT) HIV Antigen/Antibody, 4th Generation NON-REAC TIVE NON-REAC TIVE [employer] [facility] Comment: HIV-1 antigen and HIV-1/HIV-2 antibodies were not detected. There is no laboratory evidence of HIV infection. PLEASE NOTE: This information has been disclosed to you from records whose confidentiality may be protected by state law. If your state requires such protection, then the state law prohibits you from making any further disclosure of the information without the specific written consent of the person to whom it pertains, or as otherwise permitted by law. A general authorization for the release of medical or other information is NOT sufficient for this purpose. For additional information please refer to http://education.aiHit/faq/QHF832 (This link is being provided for informational/ educational purposes only.) The performance of this assay has not been clinically validated in patients less than 2 years old. Blood Venous blood specimen / Unknown 08/16/2022 10:51 AM EDT 08/16/2022 10:52 AM EDT Narrative [facility] - 08/16/2022 10:01 PM EDT FASTING:YES FASTING: YES [facility] LAB BLOOD ORDERABLES Final Resul t [facility] [address] [place] [address] [employer] [facility] [address], ([address]) [place] [address] * HPV mRNA E6/E7 w/Reflex to HPV Genotypes 16, 18/45 (08/11/2022 9:53 AM EST) HPV nRNA E6/E7 Not Detected Not Detected [facility] Comment:Methodology: Transcr iption-Mediated AmplificationThis assay detects E6/E7 viral messenger RNA (mRNA) from 14high-risk HPV types (16,18,31,33,35,39,45,51,52,56,58,59,66,68).Cervical sources are required for HPV testing.If a vaginal source from a patient who has had atotal hysterectomy with removal of cervix wassubmitted, please contact the testing laboratoryfor alternative testing options.For additional information, please refer tohttp://education.aiHit/faq/QWH757f7(This link if provided for information/educational purposes only.)THIS TEST WAS PERFORMED AT:[facility] [place] [id number] WALTON MD HPV mRNA E6/E7 [facility] HPV 16 RNA [facility] HPV 18/45 RNA [facility] 08/11/2022 9:53 AM EST 08/11/2022 4:45 PM EST [facility] External Provider LAB CYT OLOGY ORDERABLES Final Result [facility] [address] [place] [phone] * Hm Colonoscopy (04/28/2020 5:09 PM EST) Historical Provider HEALTH MAINTENANCE Final Result from Last 3 Months or Most Recently Relevant to Health Maintenance Insurance [facility] HSN PARTIAL DENTAL - HSN PARTIAL (MEDICAID) Care Teams Temperature Logging Operator Relationship Specialty Start Date End Date Carly Vanegas ANP [address] [place] [id number] PCP - General Family Medicine 05/19/20
== END 2025-03-01 10:20 | disposition home or self-care (01) ==
LOC: HO.HHCX 10:19
PROVIDERS: Visit Provider Family Medicine
DX: M54.2 Cervicalgia (principal); M54.9 Dorsalgia, unspecified; R07.81 Pleurodynia
CPT/HCPCS: 71101; 72040; 72070

== ENCOUNTER → 2025-03-01 10:19 | Outpatient (BNV) | payer OTHER, SELFPAY | PROVIDERS: Visit Provider Radiology Diagnostic Radiology | DX: R07.89 Other chest pain (principal); M54.2 Cervicalgia; M54.6 Pain in thoracic spine | CPT/HCPCS: 71101; 72040; 72070 ==

== ENCOUNTER 2025-03-25 13:53 | Outpatient (REF) | payer OTHER, SELFPAY ==
--- NOTE | ~2025-03-25 | MM_ITS ---
EXAMINATION(S): 1. MM DIAGNOSTIC DIGITAL BREAST TOMOSYNTHESIS, BILATERAL 2. Targeted ultrasound of the right breast 3. Targeted ultrasound of the left breast CLINICAL INFORMATION: Subareolar pain bilaterally COMPARISON: Comparison made to multiple prior, most recent November 01, 2023, and most remote June 08, 2019. TECHNIQUE: Digital breast tomosynthesis is performed in both the mediolateral oblique and craniocaudal views along with computer-aided detection (CAD). Synthesized 2D images are generated from the tomosynthesis. Spot compression tomosynthesis of the left breast were obtained. FINDINGS: BREAST COMPOSITION: The breasts are heterogeneously dense, which may obscure small masses. RIGHT BREAST: No significant masses, suspicious calcifications or other abnormalities are seen. Targeted ultrasound of the right breast was performed at the location of the pain as indicated by the patient. The survey throughout the retroareolar region did not reveal suspicious sonographic findings. LEFT BREAST: No significant masses, suspicious calcifications or other abnormalities are seen. Asymmetries seen in the lower breast posterior depth on the MLO view, lateral breast posterior/middle depth on the CC view and medial breast posterior depth on the CC view all presses out with spot compression; local parenchyma is similar to multiple prior studies, and therefore, represented overlapping fibroglandular breast tissue. Targeted ultrasound of the left breast was performed at the location of the pain as indicated by the patient. The survey throughout the retroareolar region did not reveal suspicious sonographic findings. MM/MM tomosynthesis diagnostic BI IMPRESSION: BILATERAL BREASTS: Negative, no evidence of malignancy. In particular, no suspicious mammographic or sonographic findings to accounts for patient's bilateral focal pain. Clinical follow-up is recommended. Otherwise, normal interval follow-up mammogram is recommended in 12 months. ASSESSMENT: BI-RADS: Category 1: Negative RECOMMENDATION: 1. Patient should be managed based on the clinical impression. 2. Otherwise, routine annual screening mammography. Results were provided to the patient at time of visit by the technologist. This patient's information was entered into a reminder system with a target due date for their next mammogram. Electronically signed by: Jose Francisco Guardado MD 03/25/2025 03:43 PM EDT
--- OUTSIDE RECORDS SUMMARY | 2025-03-25 17:12 | XMS_ITS | Encounter Summary ---
Author Organization [employer] Address [address] [facility] [address] [place] [address] Care Team Providers Care Horizontal Boring Mill Operator Name Role Phone Liliana Wise Primary Care Provider [phone] Reason for Visit * Reason Onset Date Comments Medication Question 02/26/2025 Encounter Details Date Type Department Care Team ([facility] st Contact Info) Description 02/26/2025 Telephone [facility] [address] [place], [place] [phone] Liliana Wise ANP [address] [place] [address] Medication Question Social History Tobacco Use Types [...] Care Team (Late st Contact Info) Description 03/26/2025 9:30 AM EDT Office Visit [facility] [address] [place] [address] Liliana Wise ANP [address] [place] [address] documented as of this encounter Visit Diagnoses Not on filedocumented in this encounter Additional Health Concerns Assessment Noted Time PHQ-9 Depression Total Score: 2 09/06/19 25 4:08 PM EDT documented as of this encounter Care Teams Horizontal Boring Mill Operator Relationship Specialty Start Date End Date Liliana Wise ANP [address] [place] [phone] PCP - General Family Medicine 05/19/20 documented as of this encounter
--- OUTSIDE RECORDS SUMMARY | 2025-03-25 17:12 | XMS_ITS | Encounter Summary ---
Author Organization [facility] [employer] Address [address] [facility] [address] [place] [address] Care Team Providers Care Wheel Borer Name Role Phone Carly Vanegas Primary Care Provider [phone] Encounter Details Date Type Department Care Team (Late st Contact Info) Description 10/02/2023 Orders Only [facility] [address] [place], [place] [phone] Provider, MD Cecilia Social History Tobacco Use [...] Description 03/26/2025 9:30 AM EDT Office Visit [facility] [address] [place], [place] [phone] Carly Vanegas ANP [address] [place], [place] [phone] documented as of this encounter Procedures Procedure Name Priority Date/Time Associated Diagnosis Comments BI MAMMOGRAM SCREENING TOMOSYNTHESIS BILATERAL Routine 11/01/2023 1:38 PM EDT HM COLONOSCOPY Routine 04/28/2020 5:09 PM EST documented in this encounter Results * BI Mammogram Screening Tomosynthesis Bilateral (11/01/2023 1:38 PM EDT) Anatomical Region Laterality Modality Breast Bilateral Mammography 11/01/2023 1:38 PM EDT Narrative 11/28/2023 3:36 AM EDT [facility] [address] [place] [address] Mammography Report Signed Patient: Cathryn Negro MR#: [id number] : 1965 Acct:[id number] Age/Sex: 58 / F ADM Date: 11/01/23 Loc: [facility] Attending Dr: Carly Vanegas NP Ordering Physician: CARLY VANEGAS NP Results: 1Negative Date of Service: 11/01/23 Follow Up: 1 Year From Orig inal Mammogram Procedure(s): MM tomosynthesis screening BI Accession Number(s): [id number] cc: CARLY VANEGAS NP EXAMINATION: MM SCREENING [...] in OV> 11/28/23 0332 DD/ 1338 TD/TT: Television Antenna Installer: Procedure Note Donotuseinterpreter, Image - 11/28/2023 [facility] [address] [place] [address] Mammography Report Signed Patient: Cathryn NegroMR#: [id number] : 1965Acct:[id number] Age/Sex: 58 / FADM Date: 11/01/23 Loc: [facility] Attending Dr: Carly Vanegas NP Ordering Physician: CARLY VANEGAS NPResults: 1Negative Date of Service: 11/01/23Follow Up: 1 Year From Orig ina Mammogram Procedure(s): MM tomosynthesis screening BI Accession Number(s): [id number] cc: CARLY VANEGAS NP EXAMINATION: MM SCREENING [...] in OV> 11/28/23 0332 DD/ 1338 TD/TT: Television Antenna Installer: us Carly DEVI IMFranco BI PROCEDURES Final Result * Hm Colonoscopy (04/28/2020 5:09 PM EST) Historical Provider HEALTH MAINTENANCE Final Result documented in this encounter Visit Diagnoses Not on filedocumented in this encounter Additional Health Concerns Assessment Noted Time PHQ-9 Depression Total Score: 0 09/06/19 24 1:49 PM EDT documented as of this encounter Care Teams Wheel Borer Relationship Specialty Start Date End Date Carly Vanegas ANP [address] [place] [phone] PCP - General Family Medicine 05/19/20 documented as of this encounter
--- OUTSIDE RECORDS SUMMARY | 2025-03-25 17:12 | XMS_ITS | Encounter Summary ---
Author Organization [employer] Address [address] [facility] 7t [place] [address] Care Team Providers Care Application Development Intern Name Role Phone Liliana Wise Primary Care Provider [phone] Reason for Visit * Reason Onset Date Comments Hospital Follow-up 10/05/2023 Encounter Details Date Type Department Care Team ([facility] st Contact Info) Description 10/05/2023 Telephone [facility] MEDICINE [address] [place], [place] [phone] Liliana Wise ANP [address] [place] [phone] Hospital Follow-up Social History Tobacco Use Types [...] from pt requesting a HDF appt. Hospital: [facility] Date of admission: 10/01 Discharge date: 10/03 Diagnosed: Weakness documented in this encounter Plan of Treatment Upcoming Encounters Date Type Department Care Team (Late st Contact Info) Description 03/26/2025 9:30 AM EDT Office Visit [facility] MED[facility]INE [address] [place] [address] Liliana Wise ANP [address] [place] [address] documented as of this encounter Visit Diagnoses Not on filedocumented in this encounter Additional Health Concerns Assessment Noted Time PHQ-9 Depression Total Score: 0 09/06/19 24 1:49 PM EDT documented as of this encounter Care Teams Application Development Intern Relationship Specialty Start Date End Date Liliana Wise ANP [address] [place] [address] PCP - General Family Medicine 05/19/20 documented as of this encounter
--- OUTSIDE RECORDS SUMMARY | 2025-03-25 17:13 | XMS_ITS | Encounter Summary ---
Author Organization [employer] Address [address] [facility] [address] [place] [address] Care Team Providers Care Catering Coordinator Name Role Phone Liliana Wise Primary Care Provider [phone] Encounter Details Date Type Department Care Team ([facility] Contact Info) Description 11/25/2022 Abstract [facility] MEDICINE [address] [place] [phone] Liliana Wise ANP [address] [place], [place] [phone] Social History Tobacco Use Types Packs/Day Years [...] Description 03/26/2025 9:30 AM EDT Office Visit [facility] MEDICINE [address] [place] [address] [phone] Liliana Wise ANP [address] [place], [place] [phone] documented as of this encounter Procedures Procedure Name Priority Date/Time Associated Diagnosis Comments HM MAMMOGRAPHY Routine 10/28/2022 1:46 PM EDT documented in this encounter Results * Mammography (10/28/2022 1:46 PM EDT) Mammogram Birads 2 Anatomical Region Laterality Modality Other us Historical Provider MD HEALTH MAINTENANCE Final Result documented in this encounter Visit Diagnoses Not on filedocumented in this encounter Care Teams Catering Coordinator Relationship Specialty Start Date End Date Liliana Wise ANP [address] [place] [phone] PCP - General Family Medicine 05/19/20 documented as of this encounter
--- OUTSIDE RECORDS SUMMARY | 2025-03-25 17:13 | XMS_ITS | Clinical Summary ---
Author Organization [employer] Address [address] [facility] [address] [place] [address] Care Team Providers [employer] Sales Consultant Name Role Phone Carly Vanegas Primary Care Provider [phone] Allergies No known active allergies Medications Sodium Fluoride (PreviDent) 1.1 % gel Use at bed time every night spit do not rinse for 30 min. 1 Active omeprazole (PriLOSEC) [address] capsule TIGRE PARHAM TODOS LOS D BEFORE A MEAL 2 Active Multiple Vitamin (multivitamin) capsule Take 1 capsule by mouth Once per day. Active Calcium Carb-Cholecalcif ananya (Calcium 600+D3) 600-20 MG-MCG tabletIndication s:Age-related osteoporosis without current pathological fracture Take 1 tablet by mouth 2 times daily. 180 tablet 1 5 Active naproxen (Naprosyn) 500 MG tablet Take 1 tablet (500 mg) by mouth if needed in the morning and at bedtime for mild pain. 20 tablet 1 5 03/01/20 26 Active acetaminophen (Tylenol 8 Hour) 650 MG ER tablet Take 1 tablet (650 mg) by mouth every 8 (eight) hours if needed for mild pain. Do not crush, chew, or split. 40 tablet 1 5 03/31/20 25 Active baclofen (Lioresal) 10 MG tablet Take 1 tablet (10 mg) by mouth if needed in the morning and at bedtime for muscle spasms. 30 tablet 1 5 04/30/20 25 Active Diclofenac Sodium 1 % gel Apply 2 g topically if needed in the morning, at noon, in the evening, and at bedtime (pain). 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 Migraine 07/17/2018 Overview (07/13/2022): Tylenol prn, declined Fioricet refill 07/2022 Vitamin D deficiency 05/31/2017 Insomnia 05/31/2017 Ankle pain 05/31/2017 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 Hemorrhoids 05/31/2017 Non-cardiac chest pain 02/11/2017 Overview (07/13/2022): Normal echo 05/2021 No ischemia on stress test 2017 Better w/ PPI, now resolved Resolved Problems Problem Noted Date Diagnosed Date Resolved Date Otitis of right ear 10/27/2024 03/01/20 Assessment & Plan (10/27/2024 10:52 AM EDT): I prescribed Augmentin for 7 days She may take acetaminophen as needed for pain Report back if symptoms are persistent or worse Encounters Date Type Department Care Team Description 03/25/[address] [address] Carly Vanegas ANP chart prep 03/19/2025 Patient Outreach [address] [address] Carly Vanegas ANP Pre-visit Planning (SDOH screening was completed on 09/05/2024) 03/10/2025 Refill [facility] [address] [place] [phone] Trang Conn DO 03/01/2025 9:40 AM EDT Office Visit [facility] [address] [place] [phone] Trang Conn DO Neck pain (Primary Dx); Upper back pain; Rib pain on left side 03/01/2025 Telephone [facility] [address] [place] [phone] Trang Conn DO Results 03/01/2025 Travel 02/26/[address] [address] Carly Vanegas ANP Medication Question 01/08/[address] [address] Carly Vanegas ANP October recall 12/26/[address] [address] Carly Vanegas ANP Call Back Request from Last 3 Months Immunizations Immunization Administration [...] Description 03/26/2025 9:30 AM EDT Office Visit [facility] [address] [place], [place] [phone] Carly Vanegas, ANP [address] [place], [place] [phone] Health Maintenance Due Date Last Done Comments CT Colonography 1965 FIT DNA/Cologuard 1965 FIT 1965 FOBT 1965 Sigmoidoscopy 1965 Disability Screening 1965 Pneumococcal Vaccine: 50+ Years (1 of 1 - PCV) 2014 Zoster Vaccines (1 of 2) 2014 RSV Patients and Patients Aged 60 years or older (1 - Risk 60-74 years 1-dose series) 2024 COVID-19 Vaccine (3 - season) 2025 09/11/2020, 08/14/2020 Influenza Vaccine (#1) [...] Pap Smear 09/27/2025 09/27/2022, 08/11/2022 Tobacco Screening 03/01/2026 03/01/2025 Mammogram 03/25/2026 03/25/2025, 03/07, 11/01/2023, Additional history exists Cervical Cancer Screening 08/12/2027 HPV/Cotest 08/12/2027 08/11/2022 [...] Name Priority Date/Time Associated Diagnosis Comments BI US BREAST LIMITED BILATERAL Routine 03/25/2025 2:45 PM EDT BI MAMMOGRAM DIAGNOSTIC TOMOSYNTHESIS BILATERAL Routine 03/25/2025 2:11 PM EDT Breast pain XR CERVICAL SPINE 3V Routine 03/01/2025 10:49 AM EDT Neck pain Upper back pain Rib pain on left side XR THORACIC SPINE 2 VIEWS Routine 03/01/2025 10:49 AM EDT Neck pain Upper back pain Rib pain on left side XR RIBS 3 VIEWS LEFT W CHEST Routine 03/01/2025 10:49 AM EDT Neck pain Upper back pain Rib pain on left side PROPHYLAXIS - ADULT Routine 08/27/2024 3 :00 PM EDT Dental calculus INTRAORAL - COMPLETE SERIES OF RADIOGRAPHIC IMAGES Routine 08/27/2024 3:00 PM EDT PERIODIC ORAL EVALUATION - ESTABLISHED PATIENT Routine 08/27/2024 3:00 PM EDT PAP SMEAR Routine 09/27/2022 1:15 [...] Recently Relevant to Health Maintenance Results * BI US Breast Limited Bilateral (03/25/2025 2:45 PM EDT) Anatomical Region Laterality Modality Breast Bilateral Ultrasound 03/25/2025 2:45 PM EDT Narrative 03/25/2025 3:46 PM EDT [facility] [address] [place] [address] Ultrasound Report Signed Patient: Cathryn Negro MR#: [id number] : 1965 Acct:[id number] Age/Sex: 59 / F ADM Date: 03/25/25 Loc: HO.MAMMO Attending Dr: Carly Vanegas NP Ordering Physician: CARLY VANEGAS NP Date of Service: 03/25/25 Procedure(s): US Breast BI Limited Mamm Only Accession Number(s): [id number] cc: CARLY VANEGAS NP Reason for Exam: subareolar pain bilaterally EXAMINATION(S): 1. MM DIAGNOSTIC DIGITAL BREAST TOMOSYNTHESIS, BILATERAL 2. Targeted ultrasound of the right breast 3. Targeted ultrasound of the left breast CLINICAL INFORMATION: Subareolar pain bilaterally COMPARISON: Comparison made to multiple prior, most recent November 01, 2023, and most remote June 08, 2019. TECHNIQUE: Digital breast tomosynthesis is performed in both the mediolateral oblique and craniocaudal views along with computer-aided detection (CAD). Synthesized 2D images are generated from the tomosynthesis. Spot compression tomosynthesis of the left breast were obtained. FINDINGS: BREAST COMPOSITION: The breasts are heterogeneously dense, which may obscure small masses. RIGHT BREAST: No significant masses, suspicious calcifications or other abnormalities are seen. Targeted ultrasound of the right breast was performed at the location of the pain as indicated by the patient. The survey throughout the retroareolar region did not reveal suspicious sonographic findings. LEFT BREAST: No significant masses, suspicious calcifications or other abnormalities are seen. Asymmetries seen in the lower breast posterior depth on the MLO view, lateral breast posterior/middle depth on the CC view and medial breast posterior depth on the CC view all presses out with spot compression; local parenchyma is similar to multiple prior studies, and therefore, represented overlapping fibroglandular breast tissue. Targeted ultrasound of the left breast was performed at the location of the pain as indicated by the patient. The survey throughout the retroareolar region did not reveal suspicious sonographic findings. US/US Breast BI Limited Mamm Only IMPRESSION: BILATERAL BREASTS: Negative, no evidence of malignancy. In particular, no suspicious mammographic or sonographic findings to accounts for patient's bilateral focal pain. Clinical follow-up is recommended. Otherwise, normal interval follow-up mammogram is recommended in 12 months. ASSESSMENT: BI-RADS: Category 1: Negative RECOMMENDATION: 1. Patient should be managed based on the clinical impression. 2. Otherwise, routine annual screening mammography. Results were provided to the patient at time of visit by the technologist. This patient's information was entered into a reminder system with a target due date for their next mammogram. Electronically signed by: Jose Francisco Guardado MD 03/25/2025 03:43 PM EDT Dictated By: Jose Francisco Guardado MD Signed By: <Electronically signed by Jose Francisco Gaurdado MD in OV> 03/25/25 1543 DD/ 1445 TD/TT: 03/25/25 1512 Reo Asset Manager: Procedure Note Donotuseinterpreter, Image - 03/25/20[facility] [address] [place] [address] Ultrasound Report Signed Patient: Cathryn Negro#: [id number] : 1965Acct:[id number] Age/Sex: 59 / FADM Date: 03/25/25 Loc: HO.MAMMO Attending Dr: Carly Vanegas NP Ordering Physician: CARLY VANEGAS NP Date of Service: 03/25/25 Procedure(s): US Breast BI Limited Mamm Only Accession Number(s): [id number] cc: CARLY VANEGAS NP Reason for Exam: subareolar pain bilaterally EXAMINATION(S): 1. MM DIAGNOSTIC DIGITAL BREAST TOMOSYNTHESIS, BILATERAL 2. Targeted ultrasound of the right breast 3. Targeted ultrasound of the left breast CLINICAL INFORMATION: Subareolar pain bilaterally COMPARISON: Comparison made to multiple prior, most recent November 01, 2023, and most remote June 08, 2019. TECHNIQUE: Digital breast tomosynthesis is performed in both the mediolateral oblique and craniocaudal views along with computer-aided detection (CAD). Synthesized 2D images are generated from the tomosynthesis. Spot compression tomosynthesis of the left breast were obtained. FINDINGS: BREAST COMPOSITION: The breasts are heterogeneously dense, which may obscure small masses. RIGHT BREAST: No significant masses, suspicious calcifications or other abnormalities are seen. Targeted ultrasound of the right breast was performed at the location of the pain as indicated by the patient. The survey throughout the retroareolar region did not reveal suspicious sonographic findings. LEFT BREAST: No significant masses, suspicious calcifications or other abnormalities are seen. Asymmetries seen in the lower breast posterior depth on the MLO view, lateral breast posterior/middle depth on the CC view and medial breast posterior depth on the CC view all presses out with spot compression; local parenchyma is similar to multiple prior studies, and therefore, represented overlapping fibroglandular breast tissue. Targeted ultrasound of the left breast was performed at the location of the pain as indicated by the patient. The survey throughout the retroareolar region did not reveal suspicious sonographic findings. US/US Breast BI Limited Mamm Only IMPRESSION: BILATERAL BREASTS: Negative, no evidence of malignancy. In particular, no suspicious mammographic or sonographic findings to accounts for patient's bilateral focal pain. Clinical follow-up is recommended. Otherwise, normal interval follow-up mammogram is recommended in 12 months. ASSESSMENT: BI-RADS: Category 1: Negative RECOMMENDATION: 1. Patient should be managed based on the clinical impression. 2. Otherwise, routine annual screening mammography. Results were provided to the patient at time of visit by the technologist. This patient's information was entered into a reminder system with a target due date for their next mammogram. Electronically signed by: Jose Francisco Guardado MD 03/25/2025 03:43 PM EDT Dictated By: Jose Francisco Guardado MD Signed By: <Electronically signed by Jose Francisco Guardado MD in OV> 03/25/25 1543 DD/ 1445 TD/TT: 03/25/25 1512 Reo Asset Manager: us Carly Vanegas SHANDRA IMG US PROCEDURES Edited Result - Final * BI Mammogram Diagnostic Tomosynthesis Bilateral (03/25/2025 2:11 PM EDT) Anatomical Region Laterality Modality Breast Bilateral Mammography 03/25/2025 2:11 PM EDT Narrative 03/25/2025 3:46 PM EDT [facility] [address] [place], [place] [address] Mammography Report Signed Patient: Cathryn Negro MR#: [id number] : 1965 Acct:[id number] Age/Sex: 59 / F ADM Date: 03/25/25 Loc: HO.MAMMO Attending Dr: Carly Vanegas NP Ordering Physician: CARLY VANEGAS NP Results: 1Negative Date of Service: 03/25/25 Follow Up: 1 Year From Orig inal Mammogram Procedure(s): MM tomosynthesis diagnostic BI Accession Number(s): [id number] cc: CARLY VANEGAS NP Reason For Exam: subareolar pain bilaterally EXAMINATION(S): 1. MM DIAGNOSTIC DIGITAL BREAST TOMOSYNTHESIS, BILATERAL 2. Targeted ultrasound of the right breast 3. Targeted ultrasound of the left breast CLINICAL INFORMATION: Subareolar pain bilaterally COMPARISON: Comparison made to multiple prior, most recent November 01, 2023, and most remote June 08, 2019. TECHNIQUE: Digital breast tomosynthesis is performed in both the mediolateral oblique and craniocaudal views along with computer-aided detection (CAD). Synthesized 2D images are generated from the tomosynthesis. Spot compression tomosynthesis of the left breast were obtained. FINDINGS: BREAST COMPOSITION: The breasts are heterogeneously dense, which may obscure small masses. RIGHT BREAST: No significant masses, suspicious calcifications or other abnormalities are seen. Targeted ultrasound of the right breast was performed at the location of the pain as indicated by the patient. The survey throughout the retroareolar region did not reveal suspicious sonographic findings. LEFT BREAST: No significant masses, suspicious calcifications or other abnormalities are seen. Asymmetries seen in the lower breast posterior depth on the MLO view, lateral breast posterior/middle depth on the CC view and medial breast posterior depth on the CC view all presses out with spot compression; local parenchyma is similar to multiple prior studies, and therefore, represented overlapping fibroglandular breast tissue. Targeted ultrasound of the left breast was performed at the location of the pain as indicated by the patient. The survey throughout the retroareolar region did not reveal suspicious sonographic findings. MM/MM tomosynthesis diagnostic BI IMPRESSION: BILATERAL BREASTS: Negative, no evidence of malignancy. In particular, no suspicious mammographic or sonographic findings to accounts for patient's bilateral focal pain. Clinical follow-up is recommended. Otherwise, normal interval follow-up mammogram is recommended in 12 months. ASSESSMENT: BI-RADS: Category 1: Negative RECOMMENDATION: 1. Patient should be managed based on the clinical impression. 2. Otherwise, routine annual screening mammography. Results were provided to the patient at time of visit by the technologist. This patient's information was entered into a reminder system with a target due date for their next mammogram. Electronically signed by: Jose Francisco Guardado MD 03/25/2025 03:43 PM EDT RP Dictated By: Jose Francisco Guardado MD Signed By: <Electronically signed by Jose Francisco Guardado MD in OV> 03/25/25 1543 DD/ 1411 TD/TT: 03/25/25 141 Reo Asset Manager: Procedure Note Donotuseinterpreter, Image - 03/25/2025 [facility] [address] [place] [address] Mammography Report Signed Patient: Cathryn Negro#: [id number] : 1965Acct:[id number] Age/Sex: 59 / FADM Date: 03/25/25 Loc: HO.MAMMO Attending Dr: Carly Vanegas NP Ordering Physician: CARLY VANEGAS NPResults: 1Negative Date of Service: 03/25/25Follow Up: 1 Year From [facility] Mammogram Procedure(s): MM tomosynthesis diagnostic BI Accession Number(s): [id number] cc: CARLY VANEGAS NP Reason For Exam: subareolar pain bilaterally EXAMINATION(S): 1. MM DIAGNOSTIC DIGITAL BREAST TOMOSYNTHESIS, BILATERAL 2. Targeted ultrasound of the right breast 3. Targeted ultrasound of the left breast CLINICAL INFORMATION: Subareolar pain bilaterally COMPARISON: Comparison made to multiple prior, most recent November 01, 2023, and most remote June 08, 2019. TECHNIQUE: Digital breast tomosynthesis is performed in both the mediolateral oblique and craniocaudal views along with computer-aided detection (CAD). Synthesized 2D images are generated from the tomosynthesis. Spot compression tomosynthesis of the left breast were obtained. FINDINGS: BREAST COMPOSITION: The breasts are heterogeneously dense, which may obscure small masses. RIGHT BREAST: No significant masses, suspicious calcifications or other abnormalities are seen. Targeted ultrasound of the right breast was performed at the location of the pain as indicated by the patient. The survey throughout the retroareolar region did not reveal suspicious sonographic findings. LEFT BREAST: No significant masses, suspicious calcifications or other abnormalities are seen. Asymmetries seen in the lower breast posterior depth on the MLO view, lateral breast posterior/middle depth on the CC view and medial breast posterior depth on the CC view all presses out with spot compression; local parenchyma is similar to multiple prior studies, and therefore, represented overlapping fibroglandular breast tissue. Targeted ultrasound of the left breast was performed at the location of the pain as indicated by the patient. The survey throughout the retroareolar region did not reveal suspicious sonographic findings. MM/MM tomosynthesis diagnostic BI IMPRESSION: BILATERAL BREASTS: Negative, no evidence of malignancy. In particular, no suspicious mammographic or sonographic findings to accounts for patient's bilateral focal pain. Clinical follow-up is recommended. Otherwise, normal interval follow-up mammogram is recommended in 12 months. ASSESSMENT: BI-RADS: Category 1: Negative RECOMMENDATION: 1. Patient should be managed based on the clinical impression. 2. Otherwise, routine annual screening mammography. Results were provided to the patient at time of visit by the technologist. This patient's information was entered into a reminder system with a target due date for their next mammogram. Electronically signed by: Jose Francisco Guardado MD 03/25/2025 03:43 PM EDT Dictated By: Jose Francisco Guardado MD Signed By: <Electronically signed by Jose Francisco Guardado MD in OV> 03/25/25 1543 DD/ 1411 TD/TT: 03/25/25 1415 Reo Asset Manager: Carly PAEZ BI PROCEDURES Edited Result - Final * XR CERVICAL SPINE 3V (03/01/2025 10:49 AM EDT) Anatomical Region Laterality Modality Abdomen Radiographic Laura ging 03/01/2025 10:4 9 AM EDT Narrative 03/01/2025 10:59 AM EDT [address] [address] XRay Report Signed Patient: Cathryn Negro MR#: [id number] : 1965 Acct:[id number] Age/Sex: 59 / F ADM Date: 03/01/25 Loc: HO.CX Attending Dr: Trang Conn DO Ordering Physician: Trang Conn DO Date of Service: 03/01/25 Procedure(s): XR cervical spine 3V Accession Number(s): [id number] cc: Trang Conn DO Reason for Exam: [...] 03/01/25 1056 DD/ 1049 TD/TT: 03/01/25 1050 Reo Asset Manager: Procedure Note Donotuseinterpreter, Image - 03/01/[address] [address] XRay Report Signed Patient: Cathryn NegroMR#: [id number] : 1965Acct:[id number] Age/Sex: 59 / FADM Date: 03/01/25 [facility]: Trang Conn DO Ordering Physician: Trang Conn DO Date of Service: 03/01/25 Procedure(s): XR cervical spine 3V Accession Number(s): [id number] cc: Trang Conn DO Reason for Exam: [...] 03/01/25 1056 DD/ 1049 TD/TT: 03/01/25 1050 Reo Asset Manager: Trang Conn DO IMG XR PROCEDURES Final Resu lt * XR Ribs 3 Views Left w/ Chest (03/01/2025 10:49 AM EDT) Anatomical Region Laterality Modality Radiographic Laura ging 03/01/2025 10:4 9 AM EDT Narrative 03/01/2025 11:03 AM EDT [address] [address] XRay Report Signed Patient: Cathryn Negro MR#: [id number] : 1965 Acct:[id number] Age/Sex: 59 / F ADM Date: 03/01/25 Loc: [facility] Attending Dr: Trang Conn DO Ordering Physician: Trang Conn DO Date of Service: 03/01/25 Procedure(s): XR ribs LT min 3V w CXR1V Accession Number(s): [id number] cc: Trang Conn DO Reason for Exam: [...] 03/01/25 1100 DD/ 1049 TD/TT: 03/01/25 1050 Reo Asset Manager: Procedure Note Donotuseinterpreter, Image - 03/01/[address] [address] XRay Report Signed Patient: Cathryn NegroMR#: [id number] : 1965Acct:[id number] Age/Sex: 59 / FADM Date: 03/01/25 Loc: HO.HHCX Attending Dr: Trang Conn DO Ordering Physician: Trang Conn DO Date of Service: 03/01/25 Procedure(s): XR ribs LT min 3V w CXR1V Accession Number(s): [id number] cc: Trang Conn DO Reason for Exam: [...] 03/01/25 1100 DD/ 1049 TD/TT: 03/01/25 1050 Reo Asset Manager: Trang Conn DO IMG XR PROCEDURES Final Resu lt * XR Thoracic Spine 2 Views (03/01/2025 10:49 AM EDT) Anatomical Region Laterality Modality Spine, T-spine Radiographic Laura ging 03/01/2025 10:4 9 AM EDT Narrative 03/01/2025 11:01 AM EDT [address] [address] XRay Report Signed Patient: Cathryn Negro MR#: [id number] : 1965 Acct:[id number] Age/Sex: 59 / F ADM Date: 03/01/25 [facility]: Trang Conn DO Ordering Physician: Trang Conn DO Date of Service: 03/01/25 Procedure(s): XR thoracic spine 2V Accession Number(s): [id number] cc: Trang Conn DO Reason for Exam: [...] 03/01/25 1057 DD/ 1049 TD/TT: 03/01/25 1050 Reo Asset Manager: Procedure Note Donotuseinterpreter, Image - 03/01/[address] [address] XRay Report Signed Patient: Cathryn NegroMR#: [id number] : 1965Acct:[id number] Age/Sex: 59 / FADM Date: 03/01/25 Loc: [facility] Attending Dr: Trang Conn DO Ordering Physician: Trang Conn DO Date of Service: 03/01/25 Procedure(s): XR thoracic spine 2V Accession Number(s): [id number] cc: Trang Conn DO Reason for Exam: [...] 03/01/25 1057 DD/ 1049 TD/TT: 03/01/25 1050 Reo Asset Manager: Trang Conn DO IMG XR PROCEDURES Final Resu lt * Pap Smear (09/27/2022 1:15 PM EDT) 09/27/2022 1:15 PM EDT 09/28/2022 8:45 AM EDT [place] [facility] - 10/04/2022 2:11 PM EDT ----- ------- Name: Cathryn Osorio Age/Sex: 57/F : 1965 Unit#: [id number] Attend Dr: Daniel Jerome MD Re09/27/22 Status: DEP REF Location: HO.LNP Disch: ----- ------- SPEC : [id number] RECD: 09/28/22 STATUS: MIKAYLA ABIMBOLA NUM: [id number] YAZAN: 09/27/22-1315 [facility] DR: Daniel Jerome MD ENTERED: 09/28/22-52 SP TYPE: Pap Smr OTHR DR: CARLY VANEGAS NP ORDERED: Pap Smear Interpretation Satisfactory for evaluation. Negative for intraepithelial lesion or malignancy. Atrophic. Clinical Information LMP: Post menopause Previous PAP test: 08/2022, Unknown Material Received ThinPrep-Cervical Copies To: CARLY VANEGAS NP [address] [address] Daniel Jerome MD [address] [place], [place] [address]L[place]rie [address] [address] ----- ------- Signed (signature on file) Evette Montesinos 10/04/22 1411 ----- ------- END OF REPORT [facility] External Provider LAB [facility] ORDER[facility] Final Result [facility] [address] [place] [address] [phone] * Hepatitis C Antibody with Reflex to HCV, RNA, Quantitative, Real-Time PCR (08/16/2022 10:51 AM EDT) Hepatitis C Antibody NON-REACT CALVIN NON-REACT CALVIN [facility] Index 0.06 <1.00 [facility] Comment: HCV antibody was non-reactive. There is no laboratory evidence of HCV infection. In most cases, no further action is required. However, if recent HCV exposure is suspected, a test for HCV RNA (test code 12799) is suggested. For additional information please refer to http://education.[employer]/faq/RNI37h3 (This link is being provided for informational/ educational purposes only.) Blood Venous blood specimen / Unknown 08/16/2022 10:51 AM EDT 08/16/2022 10:52 AM EDT Narrative [facility] - 08/16/2022 10:01 PM EDT FASTING:YES FASTING: YES us Carly Vanegas ANP LAB BLOOD ORDERABLES Final Resul t [facility] [address] [facility], [place] [address] [facility] [address] [facility], ([address]) [place] [address] * HIV-1/2 Antigen and Antibodies, Fourth Generation, with Reflexes (08/16/2022 10:51 AM EDT) [facility] HIV Antigen/Antibody, 4th Generation NON-REAC TIVE NON-REAC TIVE [facility] [place] [facility] Comment: HIV-1 antigen and HIV-1/HIV-2 antibodies were [...] purpose. For additional information please refer to http://education.Altavian.Squidbid/faq/DTQ741 (This link is being provided for informational/ educational purposes only.) The performance of this assay has not been clinically validated in patients less than 2 years old. Blood Venous blood specimen / Unknown 08/16/2022 10:51 AM EDT 08/16/2022 10:52 AM EDT Narrative [facility] - 08/16/2022 10:01 PM EDT FASTING:YES FASTING: YES us Carly Vanegas ANP LAB BLOOD ORDERABLES Final Resul t [facility] [address], [place] [address] [facility] [place] [facility] [address], ([address]) [place] [address] * HPV mRNA E6/E7 w/Reflex to HPV Genotypes 16, 18/45 (08/11/2022 9:53 AM EST) HPV nRNA E6/E7 Not Detected Not Detected [facility] Comment:Methodology: Transcr iption-Mediated AmplificationThis assay detects E6/E7 viral messenger RNA (mRNA) from 14high-risk HPV types (16,18,31,33,35,39,45,51,52,56,58,59,66,68).Cervical sources are required for HPV testing.If a vaginal source from a patient who has had atotal hysterectomy with removal of cervix wassubmitted, please contact the testing laboratoryfor alternative testing options.For additional information, please refer tohttp://education.Tni BioTech/faq/IZM541e5(This link if provided for information/educational purposes only.)THIS TEST WAS PERFORMED AT:[employer] [place] [phone] WALTON MD HPV mRNA E6/E7 [facility] HPV 16 RNA [facility] HPV 18/45 RNA [facility] 08/11/2022 9:53 AM EST 08/11/2022 4:45 PM EST [facility] External Provider LAB CYT OLOGY ORDERABLES Final Result [facility] [address] [place] [address] [phone] * Hm Colonoscopy (04/28/2020 5:09 PM EST) Historical Provider HEALTH MAINTENANCE Final Result from Last 3 Months or Most Recently Relevant to Health Maintenance Insurance [facility] - HSN PARTIAL (MEDICAID) Care Teams [employer] Sales Consultant Relationship Specialty Start Date End Date Carly Vanegas ANP [address] [place] [address] PCP - General Family Medicine 05/19/20
--- OUTSIDE RECORDS SUMMARY | 2025-03-25 17:13 | XMS_ITS | Encounter Summary ---
Author Organization [employer] Address [address] [facility] 7t [place] [address] Care Team Providers Care Electrolytic Etcher Name Role Phone Liliana Wise Primary Care Provider [phone] Reason for Visit * Reason Onset Date Comments chart prep 03/25/2025 Encounter Details Date Type Department Care Team ([facility] st Contact Info) Description 03/25/2025 Telephone [facility] MEDIC[facility] [address] [place], [place] [phone] Liliana Wise ANP [address] [place] [address] chart prep Social History Tobacco Use Types Packs/Day Years [...] encounter Miscellaneous Notes * Telephone Encounter - Chantel Jason [place] - 03/25/2025 8:41 AM EDT Chart Prep Labs: done Images: done Referrals: appointment pending Vaccines due: Covid, Flu, PCV20, RSV, and Zoster Screenings: colonoscopy and mammogram Overdue care gaps: Disability screen documented in this encounter Plan of Treatment Upcoming Encounters Date Type Department Care Team (Late st Contact Info) Description 03/26/2025 9:30 AM EDT Office Visit [facility] MED[facility] [address] [place] [address] Liliana Wise ANP [address] [place] [address] documented as of this encounter Visit Diagnoses Not on filedocumented in this encounter Additional Health Concerns Assessment Noted Time PHQ-9 Depression Total Score: 2 09/06/19 25 4:08 PM EDT documented as of this encounter Care Teams Electrolytic Etcher Relationship Specialty Start Date End Date Liliana Wise ANP [address] [place] [phone] PCP - General Family Medicine 05/19/20 documented as of this encounter
--- OUTSIDE RECORDS SUMMARY | 2025-03-25 17:13 | XMS_ITS | Encounter Summary ---
Author Organization [employer] Address [address] [facility] 7t [place] [address] Care Team Providers Care Mathematical Scientist Name Role Phone Liliana Wise Primary Care Provider [phone] Reason for Visit * Reason Comments Med Change Request Encounter Details Date Type Department Care Team ([facility] st Contact Info) Description 03/10/2025 Refill [facility] [address] [place], [place] [phone] Trang Conn DO [address] [place], [place] [phone] Social History Tobacco Use Types Packs/Day Years [...] Description 03/26/2025 9:30 AM EDT Office Visit [facility] [address] [place] [address] Liliana Wise ANP [address] [place] [address] documented as of this encounter Visit Diagnoses Not on filedocumented in this encounter Additional Health Concerns Assessment Noted Time PHQ-9 Depression Total Score: 2 09/06/19 25 4:08 PM EDT documented as of this encounter Care Teams Mathematical Scientist Relationship Specialty Start Date End Date Liliana Wise ANP [address] [place] [address] PCP - General Family Medicine 05/19/20 documented as of this encounter
--- OUTSIDE RECORDS SUMMARY | 2025-03-25 17:13 | XMS_ITS | Encounter Summary ---
Author Organization [employer] [facility] Address [address] [facility] 7t [place] [address] Care Team Providers Care Hydraulic Pile Hammer Operator Name Role Phone Liliana Wise Primary Care Provider [phone] Encounter Details Date Type Department Care Team (Latest Contact Info) Description 01/29/2021 Abstract [facility] CONVERSIONS Dental, Provider, DDS Social History Tobacco [...] Description 03/26/2025 9:30 AM EDT Office Visit [facility] MEDICINE [address] [place] [address] Lilinaa Wise ANP [address] [place] [address] documented as of this encounter Visit Diagnoses Not on filedocumented in this encounter Care Teams Hydraulic Pile Hammer Operator Relationship Specialty Start Date End Date Liliana Wise ANP [address] [place] [address] PCP - General Family Medicine 05/19/20 documented as of this encounter
== END 2025-03-25 13:54 | disposition home or self-care (01) ==
LOC: HO.MAMMO 13:53
PROVIDERS: PCP Nurse Practitioner Primary Care; Visit Provider Nurse Practitioner Primary Care
DX: N64.4 Mastodynia (principal)
CPT/HCPCS: 76642; 77062; 77066

== ENCOUNTER → 2025-03-25 14:30 | Outpatient (BNV) | payer OTHER, SELFPAY | PROVIDERS: PCP Nurse Practitioner Primary Care; Visit Provider Radiology Body Imaging | DX: N64.4 Mastodynia (principal) | CPT/HCPCS: 76642; 77062; 77066 ==

== ENCOUNTER 2025-03-26 10:22 | Outpatient (REF) | payer OTHER, SELFPAY ==
[2025-03-26 11:41] LABS: MANUAL DIFF FLAG NO
[2025-03-26 11:53] LABS: Hematocrit 38.7 % (37.0-47.0); Hemoglobin 12.4 g/dl (12.0-16.0); Imm Gran Abs Auto 0.02 X10*3/uL (0.00-0.03); Imm Gran Pct Auto 0.3 % (0.0-0.4); Lymphocytes Absolute Auto 1.4 X10*3/uL (1.2-4.9); Mean Corpuscular HGB Conc 32.0 g/dl (31.0-35.0); Mean Corpuscular Hemoglobin 26.2 pg (27.0-33.0); Mean Corpuscular Volume 81.6 fL (80.0-98.0); NRBC Abs Auto 0.000 X10*3/uL (0.0-0.012); NRBC Pct Auto 0.0 /100WBC (0.0-0.2); Platelet Count 229 X10*3/uL (160-400); Red Blood Count 4.74 X10*6/uL (4.20-5.50); White Blood Count 5.8 X10*3/uL (4.8-10.8)
[2025-03-26 12:08] LABS: Anion Gap 12 (12-20); Blood Urea Nitrogen 20 mg/dL (9-16); Calcium 9.5 mg/dL (8.4-10.2); Carbon Dioxide 28 mmol/L (22-29); Chloride 105 mmol/L (96-108); Estimated Glomerular Filt Rate > 60; Magnesium 2.0 mg/dL (1.6-2.6); Potassium 4.4 mmol/L (3.3-5.1); Sodium 141 mmol/L (135-145)
== END 2025-03-26 10:23 | disposition home or self-care (01) ==
LOC: HO.HHCL 10:22
PROVIDERS: Internal Medicine Endocrinology, Diabetes & Metabolism; PCP Nurse Practitioner Primary Care; Visit Provider Nurse Practitioner Primary Care
DX: M81.0 Age-related osteoporosis without current pathological fracture (principal); R53.83 Other fatigue
CPT/HCPCS: 36415; 80048; 83735; 84100; 85025; 86335

== ENCOUNTER 2025-03-28 14:24 | Outpatient (REF) | payer OTHER, SELFPAY ==
[2025-03-28 17:00] LABS: Creatinine, mg/dL 75.61
--- OUTSIDE RECORDS SUMMARY | 2025-03-28 18:15 | XMS_ITS | Encounter Summary ---
Author Organization [employer] Address [address] [facility] 7t [place] [address] Care Team Providers Care Sheet Manager Name Role Phone Liliana Wise Primary Care Provider [phone] Encounter Details Date Type Department Care Team (Latest Contact Info) Description 03/26/2025 Travel Social History Tobacco Use Types Packs/Day [...] as of this encounter Plan of Treatment Not on file documented as of this encounter Visit Diagnoses Not on filedocumented in this encounter Additional Health Concerns Assessment Noted Time PHQ-9 Depression Total Score: 2 09/06/19 25 4:08 PM EDT documented as of this encounter Care Teams Sheet Manager Relationship Specialty Start Date End Date Liliana Wise ANP [address] [place] [address] PCP - General Family Medicine 05/19/20 documented as of this encounter
--- OUTSIDE RECORDS SUMMARY | 2025-03-28 18:15 | XMS_ITS | Encounter Summary ---
Author Organization [employer] Address [address] 7[address] [place] [address] Care Team Providers Care Gluing Machine Operator Electronic Name Role Phone Carly Vanegas SHANDRA Primary Care Provider [phone] Encounter Details Date Type Department Care Team (Late st Contact Info) Description 10/02/2023 Orders Only [facility] MEDICINE [address] [place], [place] [phone] Provider, MD Cecilia Social History Tobacco Use [...] on file documented as of this encounter Procedures Procedure Name Priority Date/Time Associated Diagnosis Comments BI MAMMOGRAM SCREENING TOMOSYNTHESIS BILATERAL Routine 11/01/2023 1:38 PM EDT HM COLONOSCOPY Routine 04/28/2020 5:09 PM EST documented in this encounter Results * BI Mammogram Screening Tomosynthesis Bilateral (11/01/2023 1:38 PM EDT) Anatomical Region Laterality Modality Breast Bilateral Mammography 11/01/2023 1:38 PM EDT Narrative 11/28/2023 3:36 AM EDT [facility] [address] [place] [address] Mammography Report Signed Patient: Cathryn Negro MR#: [id number] : 1965 Acct:[id number] Age/Sex: 58 / F ADM Date: 11/01/23 Loc: HO.MAMMO Attending Dr: Carly Vanegas NP Ordering Physician: CARLY VANEGAS NP Results: 1Negative Date of Service: 11/01/23 Follow Up: 1 Year From Orig inal Mammogram Procedure(s): MM tomosynthesis screening BI Accession Number(s): [id number] cc: CARLY VANEGAS NP EXAMINATION: MM SCREENING [...] in OV> 11/28/23 0332 DD/ 1338 TD/TT: Art History Instructor: Procedure Note Donotuseinterpreter, Image - 11/28/2023 [facility] [address] [place] [address] Mammography Report Signed Patient: Cathryn NegroMR#: [id number] : 1965Acct:[id number] Age/Sex: 58 / FADM Date: 11/01/23 Loc: BEBE Attending Dr: Carly Vanegas NP Ordering Physician: CARLY VANEGAS NPResults: 1Negative Date of Service: 11/01/23Follow Up: 1 Year From Orig inal Mammogram Procedure(s): MM tomosynthesis screening BI Accession Number(s): [id number] cc: CARLY VANEGAS NP EXAMINATION: MM SCREENING [...] in OV> 11/28/23 0332 DD/ 1338 TD/TT: Art History Instructor: us Carly DEVI IMG BI PROCEDURES Final Result * Hm Colonoscopy (04/28/2020 5:09 PM EST) us Historical Provider HEALTH MAINTENANCE Final Result documented in this encounter Visit Diagnoses Not on filedocumented in this encounter Additional Health Concerns Assessment Noted Time PHQ-9 Depression Total Score: 0 09/06/19 24 1:49 PM EDT documented as of this encounter Care Teams Gluing Machine Operator Electronic Relationship Specialty Start Date End Date Carly Vanegas ANP [address] [place] [address] PCP - General Family Medicine 05/19/20 documented as of this encounter
--- OUTSIDE RECORDS SUMMARY | 2025-03-28 18:15 | XMS_ITS | Encounter Summary ---
Author Organization [employer] Address [address] [facility] 7t [place] [address] Care Team Providers Care Contracts Representative Name Role Phone Liliana Wise Primary Care Provider [phone] Encounter Details Date Type Department Care Team (Late st Contact Info) Description 11/25/2022 Abstract [facility] MEDICINE [address] [place], [place] [phone] Liliana Wise ANP [address] [place], [place] [phone] Social History Tobacco Use Types Packs/Day Years [...] Results * Mammography (10/28/2022 1:46 PM EDT) HM Mammogram Birads 2 Anatomical Region Laterality Modality Other Historical Provider HEALTH MAINTENANCE Final Result documented in this encounter Visit Diagnoses Not on filedocumented in this encounter Care Teams Contracts Representative Relationship Specialty Start Date End Date Liliana Wise ANP [address] [place] [address] PCP - General Family Medicine 05/19/20 documented as of this encounter
--- OUTSIDE RECORDS SUMMARY | 2025-03-28 18:15 | XMS_ITS | Encounter Summary ---
Author Organization [employer] Address [address] [facility] 7t [place] [address] Care Team Providers Care Sharepoint Specialist Name Role Phone Liliana Wise Primary Care Provider [phone] Reason for Visit * Reason Onset Date Comments Medication Question 02/26/2025 Encounter Details Date Type Department Care Team ([facility] st Contact Info) Description 02/26/[address] [facility] MEDICINE [address] [place], [place] [phone] Liliana Wise ANP [address] [place] [address] Medication Question Social History Tobacco Use Types [...] documented in this encounter Plan of Treatment Not on file documented as of this encounter Visit Diagnoses Not on filedocumented in this encounter Additional Health Concerns Assessment Noted Time PHQ-9 Depression Total Score: 2 09/06/19 25 4:08 PM EDT documented as of this encounter Care Teams Sharepoint Specialist Relationship Specialty Start Date End Date Liliana Wise ANP [address] [place] [phone] PCP - General Family Medicine 05/19/20 documented as of this encounter
--- OUTSIDE RECORDS SUMMARY | 2025-03-28 18:15 | XMS_ITS | Encounter Summary ---
Author Organization [employer] Address [address] [facility] 7t [place] [address] Care Team Providers Care Bottom Steep Tender Name Role Phone Liliana Wise Primary Care Provider [phone] Encounter Details Date Type Department Care Team (Latest Contact Info) Description 01/29/2021 Abstract [facility] CONVERSIONS Dental, Provider, DDS Social History Tobacco [...] on filedocumented in this encounter Care Teams Bottom Steep Tender Relationship Specialty Start Date End Date Liliana Wise ANP [address] [place] [address] PCP - General Family Medicine 05/19/20 documented as of this encounter
--- OUTSIDE RECORDS SUMMARY | 2025-03-28 18:15 | XMS_ITS | Encounter Summary ---
Author Organization [employer] Address [address] [facility] 7t [place] [address] Care Team Providers Care Cancer Center Director Name Role Phone Liliana Wise Primary Care Provider [phone] Reason for Visit * Reason Onset Date Comments Hospital Follow-up 10/05/2023 Encounter Details Date Type Department Care Team (Late st Contact Info) Description 10/05/2023 Telephone [facility] [address] [place], [place] [phone] Liliana Wise ANP [address] [place] [address] Hospital Follow-up Social History Tobacco Use Types [...] from pt requesting a HDF appt. [place] [facility] Date of admission: 10/01 Discharge date: 10/03 Diagnosed: Weakness documented in this encounter Plan of Treatment Not on file documented as of this encounter Visit Diagnoses Not on filedocumented in this encounter Additional Health Concerns Assessment Noted Time PHQ-9 Depression Total Score: 0 09/06/19 24 1:49 PM EDT documented as of this encounter Care Teams Cancer Center Director Relationship Specialty Start Date End Date Liliana Wise ANP [address] [place] [address] PCP - General Family Medicine 05/19/20 documented as of this encounter
--- OUTSIDE RECORDS SUMMARY | 2025-03-28 18:18 | XMS_ITS | Encounter Summary ---
Author Organization [employer] Address [address] [facility] [address] 7[address] [place] [address] Care Team Providers Care Optical Glass Inspector Name Role Phone Liliana Wise SHANDRA Primary Care Provider [phone] Reason for Visit * Reason Comments Med Change Request Encounter Details Date Type Department Care Team ([facility] st Contact Info) Description 03/10/2025 Refill [facility] [address] [place], [place] [phone] Trang Conn DO [address] [place], [place] [phone] Social History Tobacco Use Types Packs/Day Years [...] documented as of this encounter Care Teams Optical Glass Inspector Relationship Specialty Start Date End Date Liliana Wise ANP [address] [place] [address] PCP - General Family Medicine 05/19/20 documented as of this encounter
--- OUTSIDE RECORDS SUMMARY | 2025-03-28 18:18 | XMS_ITS | Clinical Summary ---
Author Organization [employer] Address [address] [facility] [address] [place] [address] Care Team Providers Care Clay Plant Treater Name Role Phone Carly Vanegas Primary Care Provider [phone] Allergies No known active allergies Medications Sodium Fluoride (PreviDent) 1.1 % gel Use at bed time every night spit do not rinse for 30 min. 1 Active Multiple Vitamin (multivitamin) capsule Take 1 [...] bedtime (pain). 150 g 3 5 Active famotidine (Pepcid) 20 MG tabletIndication s:Epigastric pain Take 1 tablet twice daily as needed for acid reflux 60 tablet 1 5 Active omeprazole (PriLOSEC) [address] paloma Hernandez PSULA TODOS LOS D BEFORE A MEAL 2 03/26/20 25 Discontin ued(Thera py completed ) cyclobenzaprine (Flexeril) 10 MG tabletIndication s:Left hip pain One tab po at bedtime prn pain of muscles, do not drive with medicaion 5 tablet 5 03/01/20 25 Discontin ued(Thera py completed ) Active Problems Problem Noted Date Diagnosed Date Age-related osteoporosis wit hout current pathological fracture 03/26/2025 Moderate protein-calorie malnutrition 03/26/2025 Anxiety 03/26/2025 Left hip pain 09/12/2024 Assessment & Plan [...] in >10yr life expectancy): follows w/ [facility] [employer] and is UTD IZs including COVID-19 vaccines: declines flu, due for shingrix 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 Migraine 07/17/2018 Overview (07/13/2022): Tylenol prn, declined Fioricet refill 07/2022 Vitamin D deficiency 05/31/2017 Insomnia 05/31/2017 Ankle pain 05/31/2017 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 Hemorrhoids 05/31/2017 Non-cardiac chest pain 02/11/2017 Overview (07/13/2022): Normal echo 05/2021 No ischemia on stress test 2016 Better w/ PPI, now resolved Resolved Problems Problem Noted Date Diagnosed Date Resolved Date Otitis of right ear 10/27/2024 03/01/20 25 Assessment & Plan (10/27/2024 10:52 AM EDT): I prescribed Augmentin for 7 days She may take acetaminophen as needed for pain Report back if symptoms are persistent or worse Encounters Date Type Department Care Team Description 03/26/2025 9:30 AM EDT Office Visit [address] [address] Carly Vanegas ANP Age-related osteoporosis without current pathological fracture (Primary Dx); Moderate protein-calorie malnutrition (CMS/HCC); Underweight; Anxiety; Epigastric pain; Fatigue, unspecified type; Atypical chest pain 03/26/2025 Travel 03/25/[address] [address] Carly Vanegas ANP 03/25/[address] [address] Carly Vanegas ANP chart prep 03/19/2025 Patient Outreach [address] [address] Carly Vanegas ANP Pre-visit Planning (SDOH screening was completed on 09/05/2024) 03/10/2025 Refill [facility] [address] [place] [address] Trnag Conn DO 03/01/2025 9:40 AM EDT Office Visit [facility] [address] [place] [phone] Trang Conn DO Neck pain (Primary Dx); Upper back pain; Rib pain on left side 03/01/2025 Telephone [facility] [address] [place] [address] Trang Conn, DO Results 03/01/2025 Travel 02/26/[address] [address] Carly Vanegas ANP Medication Question 01/08/[address] [phone] Carly Vanegas ANP October recall 12/26/[address] [address] Carly Vanegas ANP Call Back Request from [...] Sign Reading Time Taken Comments Blood Pressure 90/72 03/26/2025 9:23 AM EDT Pulse 62 03/26/2025 9:23 AM EDT Temperature 36.4 C (97.6 F) 03/26/2025 9:23 AM EDT Respiratory Rate 10 03/26/2025 9:23 AM EDT Oxygen Saturation 99% 03/26/2025 9:23 AM EDT Inhaled Oxygen Concentration - - Weight 54 kg (119 lb) 03/26/2025 9:23 AM EDT Height 175.3 cm (5' 9 ) 03/26/2025 9:23 AM EDT Body Mass Index 17.57 03/26/2025 9:23 AM EDT Plan of Treatment Health Maintenance Due Date Last Done Comments CT Colonography 1965 FIT DNA/Cologuard 1965 FIT 1965 FOBT 1965 Sigmoidoscopy 1965 Disability Screening 1965 Pneumococcal Vaccine: 50+ Years (1 of 1 - PCV) 2014 Zoster Vaccines (1 of 2) 2014 RSV Patients and Patients Aged 60 years or older (1 - Risk 60-74 years 1-dose series) 2024 Dental Oral Exam 02/28/2025 08/27/2024, , 01/26/2021, Additional history exists Dental Prophylaxis 02/28/2025 08/27/2024, 0 02/29/2024, 01/29/2021, Additional history exists Colonoscopy 04/28/2025 04/28/2020 Colorectal Cancer Screening 04/28/2025 Dental X-Ray: Bitewings 08/28/2025 08/28/19, 01/26/2021, 01/31/2015, Additional history exists Alcohol/Substance Use Screening 09/05/2025 09/05/2024 Depression Screening 09/05/2025 09/05/2024, 09/06/19 SDOH Screening 09/05/2025 09/05/2024 Pap Smear 09/27/2025 09/27/2022, 08/11/2022 Influenza Vaccine (#1) 2025 , 06/10/2014, 05/21/2009 Postponed from 02/04/2025 (Patient Refused) Mammogram 03/25/2026 03/25/2025, 03/07, 03/25/2025, Additional history exists COVID-19 Vaccine ( - season) 2026 09/11/2020, 08/14/2020 Postponed from 02/04/2025 (Patient Refused) Tobacco Screening 03/26/2026 03/26/2025 Cervical Cancer Screening 08/12/2027 HPV/Cotest 08/12/2027 08/11/2022 [...] Procedure Name Priority Date/Time Associated Diagnosis Comments CREATININE, 24 HR GROUP Routine 03/28/2025 12:00 PM EDT IMMUNOFIXATION, URINE Routine 03/26/2025 10:31 AM EDT PHOSPHATE ( PHOSPHORUS) Routine 03/26/2025 10:31 AM EDT BASIC METABOLIC PANEL Routine 03/26/2025 10:31 AM EDT Fatigue, unspecified type CBC WITH AUTO DIFFERENTIAL Routine 03/26/2025 10:31 AM EDT Fatigue, unspecified type MAGNESIUM Routine 03/26/2025 10:31 AM EDT Fatigue, unspecified type HM MAMMOGRAPHY Routine 03/25/2025 6:04 PM EDT BI US BREAST LIMITED BILATERAL Routine 03/25/2025 [...] Recently Relevant to Health Maintenance Results * Immunofixation (MARTHA), Urine (03/26/2025 10:31 AM EDT) MARTHA Interpretation SEE NOTE [facility] Comment:Normal pattern. No m onoclonal proteins detected.THIS TEST WAS PERFORMED AT:[facility] [place] [phone] WALTON MD 03/26/2025 10:3 1 AM EDT 03/26/2025 11:48 AM EDT us Generic External Data Provider LAB URINE ORDERAB LES Final Result [facility] [address] [place] [phone] * (ABNORMAL) CBC auto differential (03/26/2025 10:31 AM EDT) White Blood Count 5.8 4.8 - 10.8 X10*3/uL [facility] Red Blood Count 4.74 4.20 - 5.50 X10*6/uL [facility] Hemoglobin 12.4 12.0 - 16.0 g/dl [facility] Hematocrit 38.7 37.0 - 47.0 % [facility] Mean Corpuscular Volume 81.6 80.0 - 98.0 fL [facility] Mean Corpuscular Hemoglobin 26.2(L) 27.0 - 33.0 pg [facility] Mean Corpuscular HGB Conc 32.0 31.0 - 35.0 g/dl [facility] Red Cell Distribution Width 12.6 11.0 - 16.0 % [facility] Platelet Count 229 160 - 400 X10*3/uL [facility] Mean Platelet Volume 10.1 9.4 - 12.3 fL [facility] Neutrophils Percent Auto 62.7 45 - 73 % [facility] Imm Gran Pct Auto 0.3 0.0 - 0.4 % [facility] Lymphocytes Percent Auto 23.8 20 - 40 % [facility] Monocytes Percent Auto 5.5 2 - 11 % [facility] Eosinophils Percent Auto 7.0(H) 0 - 4 % [facility] Basophils Percent Auto 0.7 0 - 2 % [facility] NRBC Pct Auto 0.0 0.0 - 0.2 /100WBC [facility] Neutrophils Absolute Auto 3.7 2.0 - 8.3 x10*3/uL [facility] Imm Gran Abs Auto 0.02 0.00 - 0.03 X10*3/uL [facility] Lymphocytes Absolute Auto 1.4 1.2 - 4.9 X10*3/uL [facility] Monocytes Absolute Auto 0.3 0.1 - 1.2 X10*3/uL [facility] Eosinophils Absolute Auto 0.4 0.0 - 0.4 X10*3/uL [facility] Basophils Absolute Auto 0.0 0.0 - 0.2 X10*3/uL [facility] NRBC Abs Auto 0.000 0.0 - 0.012 X10*3/uL [facility] Blood Venous blood specimen / Unknown 03/26/2025 10:31 AM EDT 03/26/2025 11:36 AM EDT Carly Vanegas ANP LAB BLOOD ORDERABLES Final Resul t Performing Organization Address [facility] Co de Phone Number [facility] [address] [place] [phone] * Phosphate (As Phosphorus) (03/26/2025 10:31 AM EDT) Phosphorus 3.3 2.7 - 4.5 mg/dL [facility] 03/26/2025 10:3 1 AM EDT 03/26/2025 11:36 AM EDT Do It Original External Data Provider LAB BLOOD ORDERAB LES Final Result Performing Organization Address [facility] de Phone Number [facility] [address] [place] [phone] * Magnesium (03/26/2025 10:31 AM EDT) Magnesium 2.0 1.6 - 2.6 mg/dL [facility] Blood Venous blood specimen / Unknown 03/26/2025 10:31 AM EDT 03/26/2025 11:36 AM EDT Carly Vanegas ANP LAB BLOOD ORDERABLES Final Resul t Performing Organization Address [facility] de Phone Number [facility] [address] [place] [phone] * (ABNORMAL) Basic Metabolic Panel (03/26/2025 10:31 AM EDT) Sodium 141 135 - 145 mmol/L [facility] Potassium 4.4 3.3 - 5.1 mmol/L [facility] Chloride 105 96 - 108 mmol/L [facility] Carbon Dioxide 28 22 - 29 mmol/L [facility] Anion Gap 12 12 - 20 [facility] Urea Nitrogen (BUN) 20(H) 9 - 16 mg/dL [facility] Creatinine, Serum 0.87 0.5 - 1.4 mg/dL [facility] Estimated Glomerular Filt Rate >60 [facility] Comment:Chronic Kidney Disea se: Estimated GFR < 60 mL/min/1.54s1Lcyqvn Kidney Disease: Estimated GFR < 15 mL/min/1.73m2 Glucose 94 60 - 115 mg/dL [facility] Calcium 9.5 8.4 - 10.2 mg/dL [facility] Blood Venous blood specimen / Unknown 03/26/2025 10:31 AM EDT 03/26/2025 11:36 AM EDT [facility] LAB BLOOD ORDERABLES Final Resul t [facility] [address] [place] [phone] * Mammography (03/25/2025 6:04 PM EDT) Mammogram BIRADS 1 Normal, Abnormal, BIRADS 1 , BIRADS 2 Anatomical Region Laterality Modality Other Historical Provider HEALTH MAINTENANCE Final Result * BI US Breast Limited Bilateral (03/25/2025 2:45 PM EDT) Anatomical Region Laterality Modality Breast Bilateral Ultrasound 03/25/2025 2:45 PM EDT Narrative 03/25/2025 3:46 PM EDT [facility] [address] [place] [address] Ultrasound Report Signed Patient: Cathryn Negro MR#: [id number] : 1965 Acct:[id number] Age/Sex: 59 / F ADM Date: 03/25/25 Loc: HO.MAMMO Attending Dr: Carly Vanegas NP Ordering Physician: CARLY VANEGAS NP Date of Service: 03/25/25 Procedure(s): US Breast BI Limited Mamm Only Accession Number(s): [id number] cc: CARLY VANEGAS NP Reason for Exam: [...] 03/25/25 1543 DD/ 1445 TD/TT: 03/25/25 1512 Key Worker: Procedure Note Donotuseinterpreter, Image - 03/25/2025 [facility] [address] [place] [address] Ultrasound Report Signed Patient: Cathryn Negro#: [id number] : 1965Acct:[id number] Age/Sex: 59 / FADM Date: 03/25/25 Loc: HO.MAMMO Attending Dr: Carly Vanegas NP Ordering Physician: CARLY VANEGAS NP Date of Service: 03/25/25 Procedure(s): US Breast BI Limited Mamm Only Accession Number(s): [id number] cc: CARLY VANEGAS NP Reason for Exam: [...] 03/25/25 1543 DD/ 1445 TD/TT: 03/25/25 1512 Key Worker: us Carly Vanegas ANP IMG US PROCEDURES Edited Result - Final * BI Mammogram Diagnostic Tomosynthesis Bilateral (03/25/2025 2:11 PM EDT) Anatomical Region Laterality Modality Breast Bilateral Mammography 03/25/2025 2:11 PM EDT Narrative 03/25/2025 3:46 PM EDT [facility] [address] [place] [address] Mammography Report Signed Patient: Cathryn Negro MR#: [id number] : 1965 Acct:[id number] Age/Sex: 59 / F ADM Date: 03/25/25 Loc: HO.MAMMO Attending Dr: Carly Vanegas [employer] Ordering Physician: CARLY VANEGAS NP Results: 1Negative Date of Service: 03/25/25 Follow Up: 1 Year From Orig ina Mammogram Procedure(s): MM tomosynthesis diagnostic BI Accession Number(s): [id number] cc: CARLY VANEGAS NP Reason For Exam: [...] 03/25/25 1543 DD/ 1411 TD/TT: 03/25/25 1415 Key Worker: Procedure Note Donotuseinterpreter, Image - 03/25/2025 [facility] [address] [place] [address] Mammography Report Signed Patient: Libby Negro#: [id number] : 1965Acct:[id number] Age/Sex: 59 / FADM Date: 03/25/25 Loc: HO.MAMMO Attending Dr: Carly Vanegas NP Ordering Physician: CARLY VANEGAS NPResults: 1Negative Date of Service: 03/25/25Follow Up: 1 Year From Orig inal Mammogram Procedure(s): MM tomosynthesis diagnostic BI Accession Number(s): [id number] cc: CARLY VANEGAS NP Reason For Exam: [...] Francisco Guardado MD 03/25/2025 03:43 PM EDT Workstation: [employer] Dictated By: Jose Francisco Guardado MD Signed By: <Electronically signed by Jose Francisco Guardado MD in OV> 03/25/25 1543 DD/ 1411 TD/TT: 03/25/25 1415 Key Worker: [facility] IM BI PROCEDURES Edited Result - Final * XR CERVICAL SPINE 3V (03/01/2025 10:49 AM EDT) Anatomical Region Laterality Modality Abdomen Radiographic Laura ging 03/01/2025 10:4 9 AM EDT Narrative 03/01/2025 10:59 AM EDT [address] [address] XRay Report Signed Patient: Cathryn Negro MR#: [id number] : 1965 Acct:[id number] Age/Sex: 59 / F ADM Date: 03/01/25 Loc: ARIELLAX Attending Dr: Trang Conn DO Ordering Physician: Trang Conn DO Date of Service: 03/01/25 Procedure(s): XR cervical spine 3V Accession Number(s): [id number] cc: Trang Conn DO Reason for Exam: [...] 03/01/25 1056 DD/ 1049 TD/TT: 03/01/25 1050 Key Worker: Procedure Note Donotuseinterpreter, Image - 03/01/2025 [place] [address] XRay Report Signed Patient: Cathryn Negro#: [id number] : 1965Acct:[id number] Age/Sex: 59 / FADM Date: 03/01/25 Loc: CEC[place] Attending Dr: Trang Conn DO Ordering Physician: Trang Conn DO Date of Service: 03/01/25 Procedure(s): XR cervical spine 3V Accession Number(s): [id number] cc: Trang Conn DO Reason for Exam: [...] 03/01/25 1056 DD/ 1049 TD/TT: 03/01/25 1050 Key Worker: Trang Conn DO IMG XR PROCEDURES Final Resu lt * XR Ribs 3 Views Left w/ Chest (03/01/2025 10:49 AM EDT) Anatomical Region Laterality Modality Radiographic Laura ging 03/01/2025 10:4 9 AM EDT Narrative 03/01/2025 11:03 AM EDT [address] [address] XRay Report Signed Patient: Cathryn Negro MR#: [id number] : 1965 Acct:[id number] Age/Sex: 59 / F ADM Date: 03/01/25 Loc: HO.HHCX Attending Dr: Trang Conn DO Ordering Physician: Trang Conn DO Date of Service: 03/01/25 Procedure(s): XR ribs LT min 3V w CXR1V Accession Number(s): [id number] cc: Trang Conn DO Reason for Exam: [...] 03/01/25 1100 DD/ 1049 TD/TT: 03/01/25 1050 Key Worker: Procedure Note Donotuseinterpreter, Image - 03/01/2025 [place] [address] XRay Report Signed Patient: Cathryn NegroMR#: [id number] : 1965Acct:[id number] Age/Sex: 59 / FADM Date: 03/01/25 Loc: HO.HHCX Attending Dr: Trang Conn DO Ordering Physician: Trang Conn DO Date of Service: 03/01/25 Procedure(s): XR ribs LT min 3V w CXR1V Accession Number(s): [id number] cc: Trang Conn DO Reason for Exam: [...] 03/01/25 1100 DD/ 1049 TD/TT: 03/01/25 1050 Key Worker: Trang Conn DO IMG XR PROCEDURES Final Resu lt * XR Thoracic Spine 2 Views (03/01/2025 10:49 AM EDT) Anatomical Region Laterality Modality Spine, T-spine Radiographic Laura ging 03/01/2025 10:4 9 AM EDT Narrative 03/01/2025 11:01 AM EDT [address] [address] XRay Report Signed Patient: Cathryn Negro MR#: [id number] : 1965 Acct:[id number] Age/Sex: 59 / F ADM Date: 03/01/25 Loc: .HHCX Attending Dr: Trang Conn DO Ordering Physician: Trang Conn DO Date of Service: 03/01/25 Procedure(s): XR thoracic spine 2V Accession Number(s): [id number] cc: Trang Conn DO Reason for Exam: [...] 03/01/25 1057 DD/ 1049 TD/TT: 03/01/25 1050 Key Worker: Procedure Note Donotuseinterpreter, Image - 03/01/2025 [facility] [address] [place] [address] XRay Report Signed Patient: Cathryn NegroMR#: [id number] : 1965Acct:[id number] Age/Sex: 59 / FADM Date: 03/01/25 Loc: HO.HHCX Attending Dr: Trang Conn DO Ordering Physician: Trang Conn DO Date of Service: 03/01/25 Procedure(s): XR thoracic spine 2V Accession Number(s): [id number] cc: Trang Conn DO Reason for Exam: [...] 03/01/25 1057 DD/ 1049 TD/TT: 03/01/25 1050 Key Worker: Trang Conn DO IMG XR PROCEDURES Final Resu lt * Pap Smear (09/27/2022 1:15 PM EDT) 09/27/2022 1:15 PM EDT 09/28/2022 8:45 AM EDT [facility] - 10/04/2022 2:11 PM EDT ----- ------- Name: Cathryn Osorio Age/Sex: 57/F : 1965 Unit#: [id number] Attend Dr: Daniel Jerome MD Re09/27/22 Status: [facility] REF Location: [facility] Disch: ----- ------- SPEC : [id number] RECD: 09/28/22 STATUS: MIKAYLA DAILY NUM: [id number] YAZAN: 09/27/22-[address] [facility] [address]: Daniel Jerome MD ENTERED: 09/28/2284 SP TYPE: Pap Smr OTHR DR: CARLY VANEGAS NP ORDERED: Pap Smear Interpretation Satisfactory for evaluation. Negative for intraepithelial lesion or malignancy. Atrophic. Clinical Information LMP: Post menopause Previous PAP test: 08/2022, Unknown Material Received ThinPrep-Cervical Copies To: CARLY VANEGAS NP [address] [address] Daniel Jerome MD [address] [place], [place] [address] [address] [place] [address] ----- ------- Signed (signature on file) Evette Montesinos 10/04/22 1411 ----- ------- END OF REPORT [facility] External Provider LAB CYT OLY ORDERABLES Final Result Performing Organization Address [facility] Co de Phone Number [facility] [address] [place] [phone] * Hepatitis C Antibody with Reflex to HCV, RNA, Quantitative, Real-Time PCR (08/16/2022 10:51 AM EDT) Hepatitis C Antibody NON-REACT CALVIN NON-REACT CALVIN [facility] [place] [employer] Index 0.06 <1.00 [facility] [place] [employer] Comment: HCV antibody was non-reactive. There is no laboratory evidence of HCV infection. In most cases, no further action is required. However, if recent HCV exposure is suspected, a test for HCV RNA (test code 61051) is suggested. For additional information please refer to http://education.[employer]/faq/EEQ66r6 (This link is being provided for informational/ educational purposes only.) Blood Venous blood specimen / Unknown 08/16/2022 10:51 AM EDT 08/16/2022 10:52 AM EDT Narrative [facility] - 08/16/2022 10:01 PM EDT FASTING:YES FASTING: YES [facility] LAB BLOOD ORDERABLES Final Resul t Performing Organization Address City/[facility]/ZIP Co de Phone Number [facility] [address] [place] [address], [place] [address] [facility] [address] [facility], ([address]) [place] [address] * HIV-1/2 Antigen and Antibodies, Fourth Generation, with Reflexes (08/16/2022 10:51 AM EDT) HIV Antigen/Antibody, 4th Generation NON-REAC TIVE NON-REAC TIVE [facility] [place] [employer] [facility] Comment: HIV-1 antigen and HIV-1/HIV-2 antibodies [...] purpose. For additional information please refer to http://education.[employer]/faq/HXB345 (This link is being provided for informational/ educational purposes only.) The performance of this assay has not been clinically validated in patients less than 2 years old. Blood Venous blood specimen / Unknown 08/16/2022 10:51 AM EDT 08/16/2022 10:52 AM EDT Narrative [facility] - 08/16/2022 10:01 PM EDT FASTING:YES FASTING: YES [facility] LAB BLOOD ORDERABLES Final Resul t [facility] [address], [facility], [place] [address] [facility] [place] [employer] [facility] [address] [facility], ([address]) [place] [address] * HPV mRNA E6/E7 w/Reflex to HPV Genotypes 16, 18/45 (08/11/2022 9:53 AM EST) HPV nRNA E6/E7 Not Detected Not Detected [facility] Comment:Methodology: Transcr iption-Mediated AmplificationThis assay detects E6/E7 viral messenger RNA (mRNA) from 14high-risk HPV types (16,18,31,33,35,39,45,51,52,56,58,59,66,68).Cervical sources are required for HPV testing.If a vaginal source from a patient who has had atotal hysterectomy with removal of cervix wassubmitted, please contact the testing laboratoryfor alternative testing options.For additional information, please refer tohttp://education.[employer]/faq/FJT608c5(This link if provided for information/educational purposes only.)THIS TEST WAS PERFORMED AT:[facility] [place] [phone] WALTON MD HPV mRNA E6/E7 [facility] HPV 16 RNA [facility] HPV 18/45 RNA [facility] 08/11/2022 9:53 AM EST 08/11/2022 4:45 PM EST [facility] External Provider LAB CYT OLOGY ORDERABLES Final Result [facility] [address] [place] [phone] * Hm Colonoscopy (04/28/2020 5:09 PM EST) Historical Provider HEALTH MAINTENANCE Final Result from Last 3 Months or Most Recently Relevant to Health Maintenance Insurance [facility] [place] [id number] DENTAL - HSN PARTIAL (MEDICAID) Care Teams Clay Plant Treater Relationship Specialty Start Date End Date Carly Vanegas ANP [address] [place] [phone] PCP - General Family Medicine 05/19/20
--- OUTSIDE RECORDS SUMMARY | 2025-03-28 18:18 | XMS_ITS | Encounter Summary ---
Author Organization [employer] Address [address] [facility] 7t [place] [address] Care Team Providers Care Line Construction Superintendent Name Role Phone Liliana Wise Primary Care Provider [phone] Reason for Visit * Reason Onset Date Comments chart prep 03/25/2025 Encounter Details Date Type Department Care Team ([facility] st Contact Info) Description 03/25/2025 Telephone [facility] [address] [place], [place] [phone] Liliana Wise ANP [address] [place] [address] chart prep Social History Tobacco Use Types [...] documented as of this encounter Care Teams Line Construction Superintendent Relationship Specialty Start Date End Date Liliana Wise ANP [address] [place] [phone] PCP - General Family Medicine 05/19/20 documented as of this encounter
--- OUTSIDE RECORDS SUMMARY | 2025-03-28 18:18 | XMS_ITS | Encounter Summary ---
Author Organization [employer] Address [address] [facility] 7t [place] [address] Care Team Providers Care Musical Instrument Supervisor Name Role Phone Liliana Wise Primary Care Provider [phone] Encounter Details Date Type Department Care Team (Late st Contact Info) Description 03/25/2025 Abstract [facility] [address] [place], [place] [phone] Liliana Wise ANP [address] [place], [place] [phone] Social History Tobacco Use Types Packs/Day Years [...] Priority Date/Time Associated Diagnosis Comments MAMMOGRAPHY Routine 03/25/2025 6:04 PM EDT documented in this encounter Results * Mammography (03/25/2025 6:04 PM EDT) Mammogram BIRADS 1 Normal, Abnormal, BIRADS 1 , BIRADS 2 Anatomical Region Laterality Modality Other us Historical Provider MD HEALTH MAINTENANCE Final Result documented in this encounter Visit Diagnoses Not on filedocumented in this encounter Additional Health Concerns Assessment Noted Time PHQ-9 Depression Total Score: 2 09/06/19 25 4:08 PM EDT documented as of this encounter Care Teams Musical Instrument Supervisor Relationship Specialty Start Date End Date Liliana Wise ANP [address] [place] [phone] PCP - General Family Medicine 05/19/20 documented as of this encounter
[2025-03-28 20:46] LABS: Total Volume 24 Hour Urine 1200 mL
[2025-04-17 17:03] LABS: Calcium/Creatinine Ratio 129 mg/g creat (30-275); Creatinine 24Hr Urine 0.90 g/24 h (0.50-2.15)
== END 2025-03-28 14:25 | disposition home or self-care (01) ==
LOC: HO.HHCL 14:24
PROVIDERS: Internal Medicine Endocrinology, Diabetes & Metabolism; PCP Nurse Practitioner Primary Care; Visit Provider Nurse Practitioner Primary Care
DX: M81.0 Age-related osteoporosis without current pathological fracture (principal)
CPT/HCPCS: 82340; 82570

== ENCOUNTER 2025-05-20 14:22 | Outpatient (AMB) | payer OTHER, SELFPAY ==
--- NOTE | 2025-05-20 14:26 | A.OFFVIS_ITS ---
Vital Signs 05/20/25 14:27 Height 5 ft 9 in Weight 123 lb 7.342 oz BMI 18.2 BP 110/62 Blood Pressure Location Rt brachial Position Sitting Pulse 62 Pulse Source Pulse Oximeter Pulse Oximetry (%) 96 Oxygen Delivery Method Room Air Intake Visit Reasons: Osteoporosis Intake Note: Patient presents today for a follow-up on Osteoporosis: Greenhouse Instructor Required: Yes Greenhouse Instructor Language: Motor Driver Services: Greenhouse Instructor Present Greenhouse Instructor Name: AUBREE Green/JOSE Accompanied by: Self / Same As Patient Allergies No Known Allergies Allergy (Verified 01/16/25 15:25) Medication List - Last Reconciled 05/20/25 by Wilder Cantu MD calcium carbonate-vitamin D3 600 mg-20 mcg (800 unit) 1 tab PO BID meloxicam 15 mg PO DAILY multivitamin (One-A-Day Essential tablet) 1 tab PO DAILY HPI Comments Details: 59 YO Female is seen in consultation at the request of PCP for Osteoporosis. First diagnosed in just recently . Not Received treatment in the past No history of pathologic fracture or ONJ. Has several servings of dietary calcium per day in the form of milk , OJ . Not Takes Calcium supplement mg daily in divided doses. not Takes of Vitamin D daily. Denies ever using PPI, anticoagulant, antiepileptic or glucocorticoid medication. not Does weight bearing exercise . The patient engages in regular walking but does not participate in weightbearing exercises. 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 UTD on dental cleanings and sees dentist every 6 months. No planned upcoming dental work or extractions. No tabacco us or ETOH abuse DXA dated 11/16/24 : The bone mineral density of the lumbar spine is 0.766, corresponding to a T-score of -3.5, and a Z-score of -1.9. This is indicative of osteoporosis. The bone mineral density of the left total hip is 0.635, corresponding to a T-score of -3.0, and a Z-score of -1.8. This is indicative of osteoporosis. The bone mineral density of the left femoral neck is 0.628, corresponding to a T-score of -2.9, and a Z-score of -1.6. This is indicative of osteoporosis. FRACTURE RISK: The FRAX index suggests a risk of major osteoporotic fracture of 6.7%, and of hip fracture 1.9%. MM/XR DEXA axial skeleton IMPRESSION: Based on bone mineral density, and according to World Health Organization (WHO) criteria, the diagnosis is consistent with osteoporosis. Labs: Recently had a T-7 compression fx PFSH Medical History (Updated 01/16/25 @ 15:29 by Wilder Cantu MD) Osteoporosis Atypical squamous cells cannot exclude high grade squamous intraepithelial lesion on cytologic smear of cervix (ASC-H) Family history of colonic polyps Family history of colon cancer Migraines Chest pain Arthritis Back pain Hx of constipation Hx of iron deficiency anemia Low blood pressure Surgical History Hx of tubal ligation Hx of colonoscopy Family History Brother Colon cancer Sister Colon polyps Breast cancer Sister Breast cancer Social History Household Members: None Housing: Apartment Alcohol intake: never Patient Tobacco Use Status: Never used Tobacco Advance Directives Date on File: 10/05/23 service: No Current occupational status: unemployed Sexual orientation: Straight/Heterosexual Gender identity: Female Female Reproductive History Menstrual Age of Menarche: 13 Physical Exam Vital Signs: Last Vital Signs Pulse 62 05/20/25 14:27 BP 110/62 05/20/25 14:27 Pulse Ox 96 05/20/25 14:27 Oxygen Delivery Method Room Air 05/20/25 14:27 BMI result Body Mass Index 18.2 Assessment & Plan Assessment & Plan (1) Osteoporosis: Code(s): M81.0 - Age-related osteoporosis without current pathological fracture Category: Medical Plan: This is a 59-year-old female with a history of osteoporosis with ne gative secondary workup . Plan is to talk to the patient about starting anabolic therapy preferentially Evenity considering patient's age and very low bone density putting out very high risk of fracture Medications: New [id number] (Evenity) 210 mg (2.34 mL) subcut QMONTH 2.34 mL 11RF Coding Level of Care Code Est Pt Level 3 (97684) Diagnoses Osteoporosis M81.0
[2025-05-20 14:27] VITALS: BP 110/62; PULSE 62; O2SAT 96; BMI 18.2
== END 2025-05-20 14:47 | disposition home or self-care (01) ==
LOC: HO.ENCR 14:23
PROVIDERS: PCP Nurse Practitioner Primary Care; Visit Provider Internal Medicine Endocrinology, Diabetes & Metabolism
DX: M81.0 Age-related osteoporosis without current pathological fracture (principal)
CPT/HCPCS: 99213

== ENCOUNTER → 2025-05-20 14:22 | Outpatient (BNVA) | payer OTHER, SELFPAY | PROVIDERS: PCP Nurse Practitioner Primary Care; Visit Provider Internal Medicine Endocrinology, Diabetes & Metabolism | DX: M81.0 Age-related osteoporosis without current pathological fracture (principal) | CPT/HCPCS: 99212 ==